=== PATIENT | male | born 1950 | race Caucasian/White ===

== ENCOUNTER → 2020-09-23 09:09 | Outpatient (BNVA) | payer MEDICARE, SELFPAY | PROVIDERS: Family Provider Internal Medicine; PCP Family Medicine; Referring Provider Family Medicine; Visit Provider Internal Medicine | DX: E11.59 Type 2 diabetes mellitus with other circulatory complications (principal); I25.10 Atherosclerotic heart disease of native coronary artery without angina pectoris; E11.65 Type 2 diabetes mellitus with hyperglycemia; E78.5 Hyperlipidemia, unspecified | CPT/HCPCS: 99205 ==

== ENCOUNTER 2021-01-09 01:21 | Emergency (ER) | payer MEDICARE, SELFPAY ==
[2021-01-09 01:26] VITALS: BP 176/89; PULSE 74; RESP 16; TEMP 36.8; O2SAT 99; BMI 26.6
[2021-01-09 01:44] LABS: Add Urine Microscopic? NO; Charge for UA Resulting for Rev
[2021-01-09 01:45] LABS: Bilirubin Urine Neg (Negative); Blood Urine Neg (Negative); Glucose Urine UA 4+ (Normal); Ketones Urine Negative (Negative); Leukocyte Esterase Urine Negative (Negative); Nitrate Urine Negative (Negative); Protein Urine Neg (Negative); Specific Gravity, Urine 1.005 (1.005-1.030); Urine Appearance Clear (CLEAR); Urine Color Yellow (Yellow); Urobilinogen Urine Norm (Negative); pH Urine 5 (5-7)
[2021-01-09] MEDS: tamsulosin 0.4 mg Capsule 0.8 MG PO (02:18)
[2021-01-09] MEDS: sulfamethoxazole-trimeth DS 160-800 mg Tablet 1 TAB PO (02:18)
[2021-01-09 02:19] VITALS: BP 176/89; PULSE 74; RESP 16; O2SAT 99
--- NOTE | 2021-01-09 02:59 | ED_ITS ---
HPI - Male Genitourinary General: Chief complaint: Urogenital-Male Stated complaint: kidney pain Time Seen by Provider: 01/09/21 01:30 History of Present Illness: HPI Narrative: Presents with a 3-month history of difficulty urinating. He said he is having get up once an hour at night to pee. Has had a lot of dribbling and make an miserable form. Patient is a diabetic who takes insulin. His sugars been staying in the 1 50-200 range Onset (ago): month(s) Duration: constant and progressively worsening Associated symptoms: Reports no associated symptoms; Deny nausea or vomiting Review of Systems Const: Denies: fever(s), chills or body aches Eyes: Denies: change in vision or blurry vision ENMT: Denies: throat pain or nasal congestion Card: Denies: chest pain or dyspnea on exertion Resp: Denies: dyspnea, productive cough or non-productive cough GI: Denies: abdominal pain, nausea or vomiting : Reports: urinary frequency, urinary hesitancy, urinary dribbling, difficulty starting urination and nocturia; Denies: difficulty urinating Musc: Denies: extremity pain Skin/Breast: Denies: rash Neuro: Denies: headache(s) Psych: Denies: anxiety or depression Ryan/Lymph: Denies: easy bruising PFSH ED PFSH: Medical History Depression Hypertension Type 2 diabetes mellitus Surgical History H/O inguinal hernia repair History of appendectomy History of intravascular stent placement Family History Mother Cancer breast cancer Diabetes Hypertension Father Hypertension CAD (coronary artery disease) Social History Smoking and tobacco status: never smoked Second hand smoke exposure: Yes Alcohol intake: never Physical Exam Const: COMMON NORMALS: no acute distress, average body habitus and patient oriented x3 HENMT: COMMON NORMALS: normocephalic HEAD & SCALP: normal to inspection and normocephalic FACE & SINUS: normal facial exam Eye: COMMON NORMALS: conjunctivae normal GENERAL EYE: appearance normal, both eyes and all related structures CONJUNCTIVA: Yes conjunctivae normal Neck/C-Spine: COMMON NORMALS: no JVD Chest: COMMONS NORMALS: normal inspection of the chest Resp: COMMON NORMALS: normal respiratory effort and clear to auscultation bilaterally AUSCULTATION: clear to auscultation bilaterally Cardio: COMMON NORMALS: no JVD, regular rate and regular rhythm RATE: regular rate RHYTHM: regular rhythm GI: COMMON NORMALS: Normal to inspection, nondistended, normoactive bowel sounds present RECTAL EXAM: Yes prostate abnormal enlarged, tender and boggy OTHER: Hemoccult negative Extremity: COMMON NORMALS: normal to inspection and full ROM Neuro: COMMON NORMALS: patient oriented x3 Psych: COMMON NORMALS: mental status grossly normal Course Vital Signs: Vital signs: Vital Signs Temperature 98.3 F 01/09/21 01:26 Pulse Rate 74 01/09/21 02:19 Respiratory Rate 16 01/09/21 02:19 Blood Pressure 176/89 01/09/21 02:19 Pulse Oximetry 99 01/09/21 02:19 MDM - Male MDM Narrative: Medical decision making narrative: Patient has a boggy enlarged prostate. It is also tender. Patient was placed on Bactrim and Flomax. Patient is on follow-up with his primary care provider Dr. Cagle in 1 to 2 weeks and get reexamined if he has worsening symptoms he is return here. We also discussed good diabetic diet coverage of his increased sugars and his increased urination at night and has diabetes and his BPH work together Lab Data: Labs: Lab Results 01/09/21 Range/Units 01:42 Urine Color Yellow (Yellow) Urine Appearance Clear (CLEAR) Urine pH 5 (5-7) Ur Specific Gravit y 1.005 (1.005-1.030) Urine Protein Neg (Negative) Urine Glucose (UA) 4+ H (Normal) Urine Ketones Negative (Negative) Urine Blood Neg (Negative) Urine Nitrate Negative (Negative) Urine Bilirubin Neg (Negative) Urine Urobilinogen Norm (Negative) mg/dL Ur Leukocyte Deloris ase Negative (Negative) Discharge Plan Discharge Patient Disposition: Home Clinical Impression: Prostatitis Qualifiers: Prostatitis type: acute Qualified Code(s): N41.0 - Acute prostatitis Benign prostatic hyperplasia Qualifiers: Lower urinary tract symptom presence: symptoms present Lower urinary tract symptom detail: urinary frequency Qualified Code(s): N40.1 - Benign prostatic hyperplasia with lower urinary tract symptoms Condition: Stable Prescriptions: New Flomax 0.4 mg capsule 0.4 mg PO DAILY Qty: 20 RF: 0 Bactrim DS 800-160 mg tablet 1 tab PO BID 30 Days Qty: 60 RF: 0 No Action atorvastatin 20 mg tablet 20 mg PO DAILY RF: 0 duloxetine 30 mg capsule,delayed release(DR/EC) 30 mg PO BID RF: 0 lisinopril 40 mg tablet 60 mg PO DAILY RF: 0 aspirin [Adult Low Dose Aspirin] 81 mg tablet,delayed release (DR/EC) 81 mg PO DAILY RF: 0 metformin 500 mg tablet 500 mg PO BID RF: 0 Jardiance 25 mg tablet 25 mg PO DAILY Qty: 90 RF: 3 Levemir U-100 Insulin 100 unit/mL solution 45 unit SUBCUT .qpm Qty: 42 RF: 3 Discharge Orders: Discharge ED (Routine); Ordered 01/09/21 Ordered By: Mikael Brown Referrals: Grover Servin, [Primary Care Provider] - Discharge Diet: Usual diet Discharge Activity: Resume usual activity Patient Instructions: Prostatitis (ED), Benign Prostatic Hypertrophy (ED) Activity Restrictions/Additional Instructions: Follow-up with medical provider as directed. Take medications as prescribed. Return to the ER or your medical provider if condition worsens. Please read and understand discharge instructions. If any questions ask please. Coding Level of Care Code ED Mill Attendant for Carlos Chance
== END 2021-01-09 02:15 | disposition home or self-care (01) ==
PROVIDERS: Emergency Provider Nurse Practitioner Family; PCP Family Medicine
DX: N41.0 Acute prostatitis (principal); N40.1 Benign prostatic hyperplasia with lower urinary tract symptoms; Z79.82 Long term (current) use of aspirin; Z79.4 Long term (current) use of insulin; I10 Essential (primary) hypertension; E11.9 Type 2 diabetes mellitus without complications; Z77.22 Contact with and (suspected) exposure to environmental tobacco smoke (acute) (chronic)
CPT/HCPCS: 81003; 99283

== ENCOUNTER 2021-04-01 18:18 | Emergency (ER) | payer MEDICARE, SELFPAY ==
[2021-04-01 18:52] VITALS: BP 126/70; PULSE 103; RESP 17; TEMP 36.8; O2SAT 93; BMI 25.8
--- NOTE | 2021-04-01 20:35 | ECG_ITS ---
[facility] ED Test Date: 2021-04-01 Pat Name: Chen Carson Department: Room: Gender: Male Retail Marketing Specialist: : [id number] Requested By: Nicholas Stallworth Order Number: [id number] [id number] MD: Paige Humphreys M.D. 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 [email or web address]
--- NOTE | 2021-04-01 20:35 | XRR_ITS ---
PROCEDURE INFORMATION: Exam: XR Chest Exam date and time: 04/01/2021 8:35 PM Age: 71 years old Clinical indication: Cough and fever; Prior surgery; Surgery date: 6+ months; Surgery type: Stent; Additional info: Cough fever TECHNIQUE: Imaging protocol: XR of the chest. Views: 1 view. COMPARISON: No relevant prior studies available. FINDINGS: Lungs: Mild bibasilar opacities most consistent with pneumonia. Pleural spaces: Unremarkable. No pleural effusion. No pneumothorax. Heart/Mediastinum: Unremarkable. No cardiomegaly. Bones/joints: Mild thoracic spondylosis. XR/XR chest 1V portable [id number] IMPRESSION: Mild bibasilar opacities most consistent with pneumonia.
[2021-04-01 22:06] VITALS: BP 163/80; PULSE 96; RESP 18; O2SAT 93
--- NOTE | 2021-04-01 22:08 | ED_ITS ---
HPI - Weakness General: Chief complaint: Weakness Stated complaint: Tick Bite\Fever\Cough Time Seen by Provider: 04/01/21 20:31 History of Present Illness: HPI Narrative: 71-year-old male comes in today for feeling weak and tired for about 1 week now. Patient had worked out in the sun on of last week and then Saturday started feeling ill. Patient comes in tonight due to increased shortness of breath. Patient has a history of diabetes, hypertension, and hypercholesterol. Patient also has a history of coronary artery disease due to diabetes. Patient did get his COVID-19 vaccine. Review of Systems General: Reports: 10 or more systems reviewed and unremarkable except in HPI and below Resp: Reports: dyspnea PFSH ED PFSH: Medical History Depression Hypertension Type 2 diabetes mellitus Surgical History H/O inguinal hernia repair History of appendectomy History of intravascular stent placement Family History Mother Cancer breast cancer Diabetes Hypertension Father Hypertension CAD (coronary artery disease) Social History Smoking and tobacco status: never smoked Second hand smoke exposure: Yes Alcohol intake: never Physical Exam Const: COMMON NORMALS: no acute distress and patient oriented x3 GENERAL APPEARANCE: cooperative HENMT: COMMON NORMALS: normocephalic and Normal external nose present HEAD & SCALP: normal to inspection and normocephalic NOSE: Normal external nose present MOUTH: Normal oral and palatal mucosa present Eye: GENERAL EYE: appearance normal, both eyes and all related structures Neck/C-Spine: COMMON NORMALS: full ROM Lymph: LYMPHATIC: no lymphadenopathy noted Chest: COMMONS NORMALS: normal inspection of the chest Resp: COMMON NORMALS: normal respiratory effort EFFORT & INSPECTION: Yes able to speak in complete sentences AUSCULTATION: diminished lung sounds Cardio: COMMON NORMALS: regular rate and regular rhythm RATE: regular rate RHYTHM: regular rhythm GI: COMMON NORMALS: non-tender Back/Pelvis: COMMON NORMALS: thoracic and lumbar spine normal to inspection Extremity: COMMON NORMALS: normal to inspection Neuro: COMMON NORMALS: patient oriented x3 and moves all extremities Psych: COMMON NORMALS: mental status grossly normal and cooperative Skin: COMMON NORMALS: no rashes or lesions noted GENERAL SKIN EXAM: no rashes or lesions noted Course Vital Signs: Vital signs: Vital Signs Temperature 98.2 F 04/01/21 18:52 Pulse Rate 83 04/01/21 23:00 Respiratory Rate 16 04/01/21 23:00 Blood Pressure 154/76 04/01/21 23:00 Pulse Oximetry 94 04/01/21 23:00 MDM - Weakness MDM Narrative: Medical decision making narrative: Patient presents with weakness and difficulty breathing for about 7 days. Patient had been vaccinated for COVID-19. Patient reports that last week he had worked outside on and then on Saturday started becoming ill. Patient comes in today due to persistent illness and not improving. On exam patient has some decreased breath sounds. Vital signs were normal except for a slightly elevation in heart rate at 103. Pulse oxygen was 93% on room air. Differential diagnosis includes but not limited to sepsis, pneumonia, COVID-19, dehydration. CBC was unremarkable. CMP noted a sodium of 134 blood glucose of 214. Chest x-ray noted some infiltrates in bilateral lower lungs suggestive of pneumonia. COVID-19 test was negative. CRP was elevated. Believe patient probably has a viral pneumonia may be COVID-19 we will go ahead and send out a PCR COVID-19 test to outside laboratory. I will go ahead and cover patient with doxycycline to cover for secondary bacterial infection. Patient also be maintained on some dexamethasone for the next 5 days. Did recommend patient monitor his blood sugar closely return to the ER for worsening symptoms follow-up with primary care then as needed. Patient reported understanding agreed to plan. Lab Data: Labs: Lab Results 04/01/21 04/01/21 04/01/21 Range/Units 22:09 22:25 22:35 WBC 10.0 (4.0-10.0) 10^3/ uL RBC 5.42 H (4.1-5.3) 10^6/u L Hgb 15.7 (11.7-16.6) g/dL Hct 47.2 (42.0-52.0) % MCV 87.1 (80-94) fL MCH 29.0 (28.0-34.0) pg MCHC 33.3 (30.0-36.0) g/dL RDW 12.3 (12.1-15.1) % Plt Count 290 (130-400) 10^3/c mm MPV 9.7 (7.4-10.4) fL Neut % (Auto) 72.9 % Lymph % (Auto) 20.1 % [place] % (Auto) 6.2 % Eos % (Auto) 0.0 % Baso % (Auto) 0.1 % Neut # (Auto) 7.27 (1.8-7.7) 10^3/u L Lymph # (Auto) 2.0 (0.8-4.8) 10^3/u L [place] # (Auto) 0.6 (0.2-0.9) 10^3/u L Eos # (Auto) 0.0 (0.0-0.8) 10^3/u L Baso # (Auto) 0.0 (0.0-0.1) 10^3/u L Nucleated RBC % (a uto) 0 % Nucleated RBCs # 0.0 /100WBC D-Dimer (0-0.59) ug/mIFE U Specimen Type Arterial Sample Site Brachial, right ABG pH 7.32 L (7.35-7.45) ABG pCO2 27.0 L (35-45) mmHg ABG pO2 71.3 L (80.0-100.0) mmH g ABG HCO3 13.9 L (22-26) mmol/L ABG Base Excess -10.5 L (-2.0-2.0) mmol/ L Reza Test N/a Hematocrit 45.7 (42-52) % O2 Delivery Device Room air Overhead Cleaner ID Hinja Sodium (136-145) mmol/L Potassium (3.5-5.1) mmol/L Chloride (98-107) mmol/L Carbon Dioxide (22-29) mmol/L Anion Gap (5-19) BUN (8-23) mg/dL Creatinine (0.7-1.2) mg/dL GFR Calculation Glucose (65-115) mg/dL Calculated Osmolal ity (285-295) mOsm/k g Lactic Acid (0.5-2.2) mmol/L Calcium (8.5-10.5) mg/dL Total Bilirubin (0.15-1.2) mg/dL AST (0-40) U/L ALT (0-41) U/L Alkaline Phosphata se (40-130) IU/L C-Reactive Protein (0.0-4.9) mg/L NT-Pro-B Natriuret Pep (0-125) pg/mL Total Protein (6.6-8.7) g/dL Albumin (3.5-5.2) g/dL Globulin (1.3-4.6) g/dL Procalcitonin (0-0.5) ng/mL SARS-CoV-2 Ag (Rap id) Negative (Negative) 04/01/21 04/01/21 04/01/21 Range/Units 22:35 22:35 22:35 WBC (4.0-10.0) 10^3/ uL RBC (4.1-5.3) 10^6/u L Hgb (11.7-16.6) g/dL Hct (42.0-52.0) % MCV (80-94) fL MCH (28.0-34.0) pg MCHC (30.0-36.0) g/dL RDW (12.1-15.1) % Plt Count (130-400) 10^3/c mm MPV (7.4-10.4) fL Neut % (Auto) % Lymph % (Auto) % [place] % (Auto) % Eos % (Auto) % Baso % (Auto) % Neut # (Auto) (1.8-7.7) 10^3/u L Lymph # (Auto) (0.8-4.8) 10^3/u L [place] # (Auto) (0.2-0.9) 10^3/u L Eos # (Auto) (0.0-0.8) 10^3/u L Baso # (Auto) (0.0-0.1) 10^3/u L Nucleated RBC % (a uto) % Nucleated RBCs # /100WBC D-Dimer 0.84 H (0-0.59) ug/mIFE U Specimen Type Sample Site ABG pH (7.35-7.45) ABG pCO2 (35-45) mmHg ABG pO2 (80.0-100.0) mmH g ABG HCO3 (22-26) mmol/L ABG Base Excess (-2.0-2.0) mmol/ L Reza Test Hematocrit (42-52) % O2 Delivery Device Overhead Cleaner ID Sodium 134 L (136-145) mmol/L Potassium 4.5 (3.5-5.1) mmol/L Chloride 93 L (98-107) mmol/L Carbon Dioxide 14 L (22-29) mmol/L Anion Gap 31.5 H (5-19) BUN 31 H (8-23) mg/dL Creatinine 1.1 (0.7-1.2) mg/dL GFR Calculation Not Reportable Glucose 214 H (65-115) mg/dL Calculated Osmolal ity 291 (285-295) mOsm/k g Lactic Acid 1.3 (0.5-2.2) mmol/L Calcium 9.2 (8.5-10.5) mg/dL Total Bilirubin 0.3 (0.15-1.2) mg/dL AST 23 (0-40) U/L ALT 20 (0-41) U/L Alkaline Phosphata se 122 (40-130) IU/L C-Reactive Protein 126.7 H (0.0-4.9) mg/L NT-Pro-B Natriuret Pep 409 H (0-125) pg/mL Total Protein 7.7 (6.6-8.7) g/dL Albumin 4.3 (3.5-5.2) g/dL Globulin 3.4 (1.3-4.6) g/dL Procalcitonin 0.39 (0-0.5) ng/mL SARS-CoV-2 Ag (Rap id) (Negative) EKG Data^: EKG 1: Attestation: I personally reviewed and interpreted this EKG as follows: (2224, EKG shows a sinus rhythm with a regular rate at [address] elevation or ectopy is noted. EKG interprets a septal myocardial infarct probably old. No prior exam is available for comparison.) Discharge Plan Discharge Patient Disposition: Home Clinical Impression: Pneumonia Qualifiers: Pneumonia type: due to unspecified organism Laterality: bilateral Lung location: lower lobe of lung Qualified Code(s): J18.9 - Pneumonia, unspecified organism Condition: Stable Prescriptions: New doxycycline monohydrate 100 mg capsule 100 mg PO BID 10 Days Qty: 20 RF: 0 dexamethasone 6 mg tablet 6 mg PO DAILY Qty: 7 RF: 0 albuterol sulfate 90 mcg/actuation HFA aerosol inhaler 2 inh inhalation Q4H PRN (Reason: shortness of breath or wheezing) Qty: 8.5 RF: 0 No Action atorvastatin 20 mg tablet 20 mg PO DAILY RF: 0 duloxetine 30 mg capsule,delayed release(DR/EC) 30 mg PO BID RF: 0 lisinopril 40 mg tablet 60 mg PO DAILY RF: 0 aspirin [Adult Low Dose Aspirin] 81 mg tablet,delayed release (DR/EC) 81 mg PO DAILY RF: 0 metformin 500 mg tablet 500 mg PO BID RF: 0 Jardiance 25 mg tablet 25 mg PO DAILY Qty: 90 RF: 3 Levemir U-100 Insulin 100 unit/mL solution 45 unit SUBCUT .qpm Qty: 42 RF: 3 Flomax 0.4 mg capsule 0.4 mg PO DAILY Qty: 20 RF: 0 Discharge Orders: Discharge ED (Routine); Ordered 04/02/21 Ordered By: Marck Huddleston Discharge Diet: Usual diet Discharge Activity: Increase activity as tolerated Patient Instructions: Pneumonia (ED), Opioid Safety Activity Restrictions/Additional Instructions: Your exam showed that you had pneumonia. We have prescribed doxycycline antibiotic twice a day to cover for any bacterial infection. We have also written for dexamethasone daily for the next 5 days to help with your breathing. Dexamethasone may increase your blood sugar. Your blood sugar should return to normal after stopping it. We have also written for albuterol inhaler you will use this 2 inhalations every 4 hours as needed for cough and wheezing but use it at least 4 times a day to help open up your airways and move the congestion out of your chest. Make sure you eat a healthy diet and drink plenty of fluids. Follow-up with primary care in 1 week. We have also did a send out COVID-19 test to verify that your Covid test was negative that we had done in the ER. Return to the emergency room for worsening symptoms increasing shortness of breath and high fever. If you develop the symptoms you may need to have admission to the hospital or other therapy and treatment. Coding Level of Care Code ED Aluminum Fabrication Supervisor for Carlos Chance Exam Comprehensive
[2021-04-01 22:31] LABS: ABG PH Result 7.32 (7.35-7.45); Arterial Blood Gas Hematocrit 45.7 % (42-52); Base Excess ABG -10.5 mmol/L (-2.0-2.0); Blood Gas Sample Site Brachial, right; Blood Gas Sample Type Arterial; HCO3 ABG 13.9 mmol/L (22-26); Oxygen Device ROOM AIR; PO2 ABG 71.3 mmHg (80.0-100.0)
[2021-04-01] MEDS: sodium chloride 0.9% 500 ML 999 ML IV (22:49)
[2021-04-01 22:59] LABS: Basophils % 0.1 %; Hematocrit 47.2 % (42.0-52.0); Hemoglobin 15.7 g/dL (11.7-16.6); Lymphocytes % 20.1 %; Mean Corpuscular HGB Conc 33.3 g/dL (30.0-36.0); Mean Corpuscular Volume 87.1 fL (80-94); Mean Platelet Volume 9.7 fL (7.4-10.4); Monocytes # 0.6 10^3/uL (0.2-0.9); Monocytes % 6.2 %; Neutrophils # 7.27 10^3/uL (1.8-7.7); Neutrophils % 72.9 %; Nucleated Red Blood Cells % 0 %; Platelet Count 290 10^3/cmm (130-400); Red Blood Count 5.42 10^6/uL (4.1-5.3); Red Cell Distribution Width 12.3 % (12.1-15.1)
[2021-04-01 23:00] VITALS: BP 154/76; PULSE 83; RESP 16; O2SAT 94
[2021-04-01 23:01] LABS: SARS Covid-2 Antigen Negative (Negative)
[2021-04-01 23:05] LABS: Lactic Sepsis W/Reflex 1.3 mmol/L (0.5-2.2)
[2021-04-01 23:07] LABS: D Dimer 0.84 ug/mIFEU (0-0.59)
[2021-04-01 23:16] LABS: NT Pro B Type Natriuretic Pept 409 pg/mL (0-125); Procalcitonin 0.39 ng/mL (0-0.5)
[2021-04-01 23:27] LABS: Alanine Aminotransferase 20 U/L (0-41); Albumin Level 4.3 g/dL (3.5-5.2); Alkaline Phosphatase 122 IU/L (40-130); Anion Gap 31.5 (5-19); Aspartate Amino Transferase 23 U/L (0-40); Blood Urea Nitrogen 31 mg/dL (8-23); C Reactive Protein 126.7 mg/L (0.0-4.9); Calcium 9.2 mg/dL (8.5-10.5); Carbon Dioxide 14 mmol/L (22-29); Chloride 93 mmol/L (98-107); Globulin 3.4 g/dL (1.3-4.6); Glucose 214 mg/dL (65-115); Osmolality Calculated 291 mOsm/kg (285-295); Potassium 4.5 mmol/L (3.5-5.1); Sodium 134 mmol/L (136-145); Total Bilirubin 0.3 mg/dL (0.15-1.2); Total Protein 7.7 g/dL (6.6-8.7)
--- NOTE | 2021-04-02 00:08 | PC.NURSE ---
jessica Morales RN
[2021-04-02 01:45] VITALS: BP 149/99; PULSE 84; RESP 18; O2SAT 97
[2021-04-02 02:15] VITALS: PULSE 100; RESP 16; O2SAT 95
[2021-04-02] MEDS: albuterol 8 gm MDI 2 PUFF INHALATION (02:15)
[2021-04-03 10:58] LABS: Lyme AB Screen <0.90 index
[2021-04-03 15:25] LABS: Coronavirus Test Green County Detected
[2021-04-06 17:08] LABS: E. Chaffeensis AB IGM <1:20; Interpretation PAST INFECTION
[2021-04-07 16:35] LABS: RMSF IGG DETECTED; RMSF IGM NOT DETECTED
== END 2021-04-02 01:35 | disposition home or self-care (01) ==
PROVIDERS: Emergency Medicine; Emergency Provider Nurse Practitioner Family
DX: J18.9 Pneumonia, unspecified organism (principal); Z79.82 Long term (current) use of aspirin; Z79.4 Long term (current) use of insulin; I10 Essential (primary) hypertension; E11.9 Type 2 diabetes mellitus without complications; Z77.22 Contact with and (suspected) exposure to environmental tobacco smoke (acute) (chronic); U07.1 COVID-19
CPT/HCPCS: 36600; 71045; 80053; 82803; 83605; 83880; 84145; 85025; 85378; 86140; 86618; 86666; 86757; 87040; 87426; 87635; 93005; 94640; 99284; J3535; J7040

== ENCOUNTER 2021-04-05 09:20 | Outpatient (CLI) | payer MEDICARE, SELFPAY ==
[2021-04-05 11:35] VITALS: BP 147/72; BP 163/78; PULSE 81; RESP 20; RESP 21; TEMP 36.6; TEMP 37.2; O2SAT 93
== END 2021-04-05 14:10 | disposition home or self-care (01) ==
PROVIDERS: PCP Family Medicine; Visit Provider Clinical Nurse Specialist Adult Health
DX: U07.1 COVID-19 (principal)
CPT/HCPCS: 96365

== ENCOUNTER 2021-04-06 06:10 | Emergency (ER) | payer MEDICARE, SELFPAY ==
[2021-04-06 06:19] VITALS: BP 147/87; PULSE 85; RESP 23; TEMP 36.8; O2SAT 95; BMI 25.4
--- NOTE | 2021-04-06 06:21 | W.ED.COVID ---
HPI - COVID General: Chief Complaint: COVID symptoms Stated Complaint: cough, sob, covid + Time Seen by Provider: 04/06/21 06:18 History of Present Illness: HPI Narrative: 71-year-old male presents emergency room with complaints of shortness of breath. He was seen on April 01 with complaints of weakness fatigue generalized ill feeling for 1 week prior. He had thought it was due to being out in the sun excessively. He previously been vaccinated for Covid. At the time he was seen on the the rapid antigen was negative the PCR was sent out and did come back positive. He was started on dexamethasone they also added doxycycline to cover for secondary pneumonia is because of question of infiltrate on the chest x-ray. Main complaint at this time is he feels weak. complaint: known COVID positive Prior covid testing: yes, results known Prior testing date: 04/01/21 COVID 19 common symptoms: positive cough, non-productive cough, dyspnea, fatigue and body aches; negative fever(s), chills, throat pain, nasal congestion, nausea, vomiting or diarrhea COVID 19 other sytmptoms: negative chest pain, requiring oxygen or respiratory distress Severity: mild Pertinent comorbid conditions: diabetes, hypertension and heart disease Treatment prior to arrival: acetaminophen, ibuprofen, antibiotics and steroids COVID Results: SARS-CoV-2 Antigen (Rapid) Negative (Negative) 04/01/21 22:09 04/01/21 Nasal/Oral Coronavirus 2019 PCR Detected H 04/02/21 01:30 04/02/21 Review of Systems Const: Reports: body aches and fatigue; Denies: fever(s) or chills ENMT: Denies: throat pain, ear or mastoid pain, nasal discharge or nasal congestion Card: Denies: chest pain, edema, dyspnea on exertion or orthopnea Resp: Reports: dyspnea and non-productive cough GI: Denies: abdominal pain, nausea, vomiting, hematemesis, coffee ground emesis, diarrhea, constipation, bloating, hematochezia or melena : Denies: flank pain, dysuria, urinary frequency or urinary urgency Skin/Breast: Denies: rash or pruritus PFSH ED PFSH: Medical History Depression Hypertension Type 2 diabetes mellitus Surgical History H/O inguinal hernia repair History of appendectomy History of intravascular stent placement Family History Mother Cancer breast cancer Diabetes Hypertension Father Hypertension CAD (coronary artery disease) Social History Smoking and tobacco status: never smoked Second hand smoke exposure: Yes Alcohol intake: never Physical Exam Const: COMMON NORMALS: no acute distress GENERAL APPEARANCE: cooperative and comfortable ORIENTATION/CONSCIOUSNESS: Yes awake, Yes oriented to person, Yes oriented to place and Yes oriented to time HENMT: COMMON NORMALS: normocephalic, atraumatic and hearing grossly normal bilaterally HEAD & SCALP: normocephalic and atraumatic Neck/C-Spine: COMMON NORMALS: no JVD Resp: COMMON NORMALS: normal respiratory effort, No retractions, No use of accessory muscles and clear to auscultation bilaterally AUSCULTATION: clear to auscultation bilaterally Cardio: COMMON NORMALS: no JVD, regular rate, regular rhythm and No murmurs present (Cardio) RATE: regular rate RHYTHM: regular rhythm GI: COMMON NORMALS: Soft to palpation and No hepatosplenomegaly present AUSCULTATION: Yes normoactive bowel sounds PALPATION: Yes Soft to palpation, No Tenderness to palpation present (GI), No Guarding due to palpation present (GI) and Yes No hepatosplenomegaly present Extremity: COMMON NORMALS: normal to inspection, capillary refill normal, no clubbing, cyanosis or edema, no calf tenderness and no pedal edema Neuro: SENSORIUM/ORIENTATION: Yes oriented to person, Yes oriented to place and Yes oriented to time Skin: COMMON NORMALS: no rashes or lesions noted GENERAL SKIN EXAM: no rashes or lesions noted Course Vital Signs: Vital signs: Vital Signs Temperature 98.2 F 04/06/21 06:19 Pulse Rate 78 04/06/21 09:29 Respiratory Rate 18 04/06/21 09:29 Blood Pressure 123/78 04/06/21 09:29 Pulse Oximetry 95 04/06/21 09:29 MDM - COVID MDM Narrative: Medical decision making narrative: Patient has generalized symptoms of COVID-19 is known positive. No significant hypoxia all other evaluation is normal he does have some mild hyponatremia. He is typically mildly hyponatremic although is little worse today but he does not have any further symptoms of it. We will have him increase his fluids return if has further problems. Lab Data: Labs: Lab Results 04/06/21 04/06/21 Range/Units 06:49 06:49 WBC 14.7 H (4.0-10.0) 10^3/ uL RBC 5.16 (4.1-5.3) 10^6/u L Hgb 15.0 (11.7-16.6) g/dL Hct 42.4 (42.0-52.0) % MCV 82.2 (80-94) fL MCH 29.1 (28.0-34.0) pg MCHC 35.4 (30.0-36.0) g/dL RDW 11.7 L (12.1-15.1) % Plt Count 340 (130-400) 10^3/c mm MPV 9.4 (7.4-10.4) fL Neut % (Auto) 83.2 % Lymph % (Auto) 6.5 % [place] % (Auto) 8.2 % Eos % (Auto) 0.0 % Baso % (Auto) 0.1 % Neut # (Auto) 12.25 H (1.8-7.7) 10^3/u L Lymph # (Auto) 1.0 (0.8-4.8) 10^3/u L [place] # (Auto) 1.2 H (0.2-0.9) 10^3/u L Eos # (Auto) 0.0 (0.0-0.8) 10^3/u L Baso # (Auto) 0.0 (0.0-0.1) 10^3/u L Nucleated RBC % (a uto) 0 % Nucleated RBCs # 0.0 /100WBC Sodium 128 L (136-145) mmol/L Potassium 4.7 (3.5-5.1) mmol/L Chloride 92 L (98-107) mmol/L Carbon Dioxide 20 L (22-29) mmol/L Anion Gap 20.7 H (5-19) BUN 43 H (8-23) mg/dL Creatinine 0.9 (0.7-1.2) mg/dL GFR Calculation Not Reportable Glucose 176 H (65-115) mg/dL Calculated Osmolal ity 281 L (285-295) mOsm/k g Calcium 8.8 (8.5-10.5) mg/dL COVID Results: SARS-CoV-2 Antigen (Rapid) Negative (Negative) 04/01/21 22:09 04/01/21 Nasal/Oral Coronavirus 2019 PCR Detected H 04/02/21 01:30 04/02/21 Discharge Plan Discharge Patient Disposition: Home Clinical Impression: COVID-19 Condition: Stable Prescriptions: New levofloxacin 500 mg tablet 500 mg PO DAILY 7 Days RF: 0 Discontinued doxycycline monohydrate 100 mg capsule 100 mg PO BID 10 Days Qty: 20 RF: 0 No Action atorvastatin 20 mg tablet 20 mg PO DAILY RF: 0 duloxetine 30 mg capsule,delayed release(DR/EC) 30 mg PO BID RF: 0 lisinopril 40 mg tablet 60 mg PO DAILY RF: 0 aspirin [Adult Low Dose Aspirin] 81 mg tablet,delayed release (DR/EC) 81 mg PO DAILY RF: 0 metformin 500 mg tablet 500 mg PO BID RF: 0 Jardiance 25 mg tablet 25 mg PO DAILY Qty: 90 RF: 3 Levemir U-100 Insulin 100 unit/mL solution 45 unit SUBCUT .qpm Qty: 42 RF: 3 Flomax 0.4 mg capsule 0.4 mg PO DAILY Qty: 20 RF: 0 dexamethasone 6 mg tablet 6 mg PO DAILY Qty: 7 RF: 0 albuterol sulfate 90 mcg/actuation HFA aerosol inhaler 2 inh inhalation Q4H PRN (Reason: shortness of breath or wheezing) Qty: 8.5 RF: 0 Discharge Orders: Discharge ED (Routine); Ordered 04/06/21 Ordered By: Jonah Harris Referrals: Grover Servin DO [Primary Care Provider] - Discharge Diet: Usual diet Discharge Activity: Increase activity as tolerated Patient Instructions: Opioid Safety Coding Level of Care Code ED Contact Lens Inspector for Carlos Fwd Exam Comprehensive
[2021-04-06 06:23] VITALS: O2SAT 95
--- NOTE | 2021-04-06 06:31 | XR_ITS ---
WS: [email or web address] PORTABLE CHEST HISTORY: dyspnea/cough COMPARISON: 04/01/2021 Mild elevation of the RIGHT hemidiaphragm. Similar to the prior studies. Increasing opacification at the LEFT lung base. No pleural effusion or pneumothorax. Cardiac size: Normal. Mediastinum/Aorta: Normal mediastinum. No osseous abnormality seen. XR/XR chest 1V portable [id number] IMPRESSION: Subsegmental area of pneumonitis at the LEFT lung base is new.
[2021-04-06 06:49] VITALS: BP 127/75; PULSE 77; RESP 22; O2SAT 95
[2021-04-06 06:55] LABS: Basophils % 0.1 %; Hematocrit 42.4 % (42.0-52.0); Lymphocytes % 6.5 %; Mean Corpuscular HGB Conc 35.4 g/dL (30.0-36.0); Mean Corpuscular Hemoglobin 29.1 pg (28.0-34.0); Mean Corpuscular Volume 82.2 fL (80-94); Mean Platelet Volume 9.4 fL (7.4-10.4); Monocytes # 1.2 10^3/uL (0.2-0.9); Monocytes % 8.2 %; Neutrophils # 12.25 10^3/uL (1.8-7.7); Neutrophils % 83.2 %; Nucleated Red Blood Cells % 0 %; Platelet Count 340 10^3/cmm (130-400); Red Blood Count 5.16 10^6/uL (4.1-5.3); Red Cell Distribution Width 11.7 % (12.1-15.1); White Blood Count 14.7 10^3/uL (4.0-10.0)
[2021-04-06 07:19] LABS: Anion Gap 20.7 (5-19); Blood Urea Nitrogen 43 mg/dL (8-23); Calcium 8.8 mg/dL (8.5-10.5); Carbon Dioxide 20 mmol/L (22-29); Chloride 92 mmol/L (98-107); Glucose 176 mg/dL (65-115); Osmolality Calculated 281 mOsm/kg (285-295); Potassium 4.7 mmol/L (3.5-5.1); Sodium 128 mmol/L (136-145)
[2021-04-06] MEDS: sodium chloride 0.9% 1,000 ML 999 ML IV (07:41)
[2021-04-06 09:23] VITALS: BP 123/78; PULSE 78; RESP 18; O2SAT 95
[2021-04-06 09:29] VITALS: BP 123/78; PULSE 78; RESP 18; O2SAT 95
== END 2021-04-06 09:30 | disposition home or self-care (01) ==
PROVIDERS: Emergency Provider Family Medicine; PCP Family Medicine
DX: U07.1 COVID-19 (principal); Z79.82 Long term (current) use of aspirin; Z79.4 Long term (current) use of insulin; I10 Essential (primary) hypertension; E11.9 Type 2 diabetes mellitus without complications; Z77.22 Contact with and (suspected) exposure to environmental tobacco smoke (acute) (chronic)
CPT/HCPCS: 71045; 80048; 85025; 96360; 99283; J7030

== ENCOUNTER → 2021-07-03 09:55 | Outpatient (BNVA) | payer MEDICARE, SELFPAY | PROVIDERS: PCP Family Medicine; Visit Provider Internal Medicine | DX: E11.65 Type 2 diabetes mellitus with hyperglycemia (principal); E11.59 Type 2 diabetes mellitus with other circulatory complications; I25.10 Atherosclerotic heart disease of native coronary artery without angina pectoris; E78.5 Hyperlipidemia, unspecified; E87.1 Hypo-osmolality and hyponatremia; Z79.4 Long term (current) use of insulin; I10 Essential (primary) hypertension | CPT/HCPCS: 99214 ==

== ENCOUNTER → 2021-10-17 11:08 | Outpatient (BNVA) | payer MEDICARE, SELFPAY | PROVIDERS: PCP Family Medicine; Visit Provider Internal Medicine | DX: E78.5 Hyperlipidemia, unspecified (principal); E11.65 Type 2 diabetes mellitus with hyperglycemia; E11.59 Type 2 diabetes mellitus with other circulatory complications; I25.10 Atherosclerotic heart disease of native coronary artery without angina pectoris; Z79.84 Long term (current) use of oral hypoglycemic drugs; Z79.4 Long term (current) use of insulin | CPT/HCPCS: 99214 ==

== ENCOUNTER 2021-10-17 12:13 | Outpatient (CLI) | payer MEDICARE, SELFPAY ==
[2021-10-17 13:29] LABS: Estmated Average Glucose 246; Hemoglobin A1C 10.2 % (4.0-6.0)
[2021-10-17 13:41] LABS: Alanine Aminotransferase 23 U/L (0-41); Albumin Level 4.8 g/dL (3.5-5.2); Alkaline Phosphatase 128 IU/L (40-130); Anion Gap 18.5 (5-19); Aspartate Amino Transferase 15 U/L (0-40); Blood Urea Nitrogen 22 mg/dL (8-23); Calcium 9.1 mg/dL (8.5-10.5); Carbon Dioxide 23 mmol/L (22-29); Chloride 99 mmol/L (98-107); Chol HDL Ratio 5.56 mg/dL (1.0-5.00); Cholesterol 200 mg/dL (0-200); Globulin 2.4 g/dL (1.3-4.6); Glucose 293 mg/dL (65-115); HDL Cholesterol 36 mg/dL (60-100); LDL Cholesterol Calculated 112 mg/dL (50-129); LDL HDL Ratio 3.11 RATIO (0.00-3.22); Osmolality Calculated 296 mOsm/kg (285-295); Potassium 4.5 mmol/L (3.5-5.1); Sodium 136 mmol/L (136-145); Total Bilirubin 0.4 mg/dL (0.15-1.2); Total Protein 7.2 g/dL (6.6-8.7); Triglycerides 260 mg/dL (0-150)
== END 2021-10-17 12:14 | disposition home or self-care (01) ==
PROVIDERS: PCP Family Medicine; Visit Provider Internal Medicine
DX: E11.59 Type 2 diabetes mellitus with other circulatory complications (principal); E11.65 Type 2 diabetes mellitus with hyperglycemia; E78.5 Hyperlipidemia, unspecified; I25.10 Atherosclerotic heart disease of native coronary artery without angina pectoris
CPT/HCPCS: 36415; 80053; 80061; 83036

== ENCOUNTER → 2022-01-08 13:53 | Outpatient (BNVA) | payer MEDICARE, SELFPAY | PROVIDERS: PCP Family Medicine; Visit Provider Internal Medicine | DX: E11.59 Type 2 diabetes mellitus with other circulatory complications (principal); E78.5 Hyperlipidemia, unspecified; I25.10 Atherosclerotic heart disease of native coronary artery without angina pectoris | CPT/HCPCS: 83036 ==

== ENCOUNTER → 2022-01-15 11:14 | Outpatient (BNVA) | payer MEDICARE, SELFPAY | PROVIDERS: PCP Family Medicine; Visit Provider Internal Medicine | DX: E11.65 Type 2 diabetes mellitus with hyperglycemia (principal); E11.59 Type 2 diabetes mellitus with other circulatory complications; E78.5 Hyperlipidemia, unspecified; I25.10 Atherosclerotic heart disease of native coronary artery without angina pectoris; Z79.84 Long term (current) use of oral hypoglycemic drugs; Z79.4 Long term (current) use of insulin | CPT/HCPCS: 99214 ==

== ENCOUNTER → 2022-04-16 10:59 | Outpatient (BNVA) | payer MEDICARE, SELFPAY | PROVIDERS: PCP Family Medicine; Visit Provider Internal Medicine | DX: Z79.4 Long term (current) use of insulin (principal); Z79.84 Long term (current) use of oral hypoglycemic drugs; E11.65 Type 2 diabetes mellitus with hyperglycemia; E11.59 Type 2 diabetes mellitus with other circulatory complications; E78.5 Hyperlipidemia, unspecified; I25.10 Atherosclerotic heart disease of native coronary artery without angina pectoris | CPT/HCPCS: 99214 ==

== ENCOUNTER 2022-06-18 15:45 | Observation (INO) | payer MEDICARE, SELFPAY ==
[2022-06-18] VITALS (18 sets, daily range): BP systolic 149–192; BP diastolic 78–121; PULSE 78–147; RESP 14–27; TEMP 36.2–36.5; O2SAT 92–98; BMI 27.3
--- NOTE | 2022-06-18 15:55 | W.ED.NEUROSD ---
HPI - Neuro Symptoms/Deficit General: Chief Complaint: Head Injury Stated Complaint: Possible stroke Time Seen by Provider: 06/18/22 15:55 Limitations: no limitations History of Present Illness: Mr. Carson is a 72-year-old gentleman with significant past medical history of CAD, diabetes, hyperlipidemia presenting to the emergency department due to altered mental status and confusion. He was last definitively known well at approximately 1315. Apparently he was out doing chores and cutting wood and was subsequently confused. He was found to be crawling around on the ground and seemed very confused with a contusion to his head. On initial exam here patient does not recall specific events however is alert and oriented x3 with NIHSS of 0. Denies other recent changes in health. Denies similar episodes in the past. Patient has A. fib with RVR with no known history of arrhythmia. No other specific changes in health, exacerbating, or alleviating factors identified. Onset (ago): hour(s) Time: 13:15 Timing confirmed by: family member History of same: No Severity: severe Relieving factors: time Review of Systems General: Reports: 10 or more systems reviewed and unremarkable except in HPI and below PFSH ED PFSH: Medical History Depression Hypertension Type 2 diabetes mellitus Surgical History H/O inguinal hernia repair History of appendectomy History of intravascular stent placement Family History Mother Cancer breast cancer Diabetes Hypertension Father Hypertension CAD (coronary artery disease) Social History Smoking and tobacco status: never smoked Second hand smoke exposure: Yes Alcohol intake: never NIH stroke score NIHSS: Level Of Consciousness - 1a: 0 Level Of Consciousness Questions - 1b: Both Correct Level Of Consciousness Commands - 1c: Both Correct Best Gaze - 2: Normal Visual Ordonez - 3: No Visual Loss Facial Palsy - 4: Normal Motor Arm Right - 5: No Drift Motor Arm Left - 5: No Drift Motor Leg Right - 6: No Drift Motor Leg Left - 6: No Drift Limb Ataxia - 7: Absent Sensory - 8: Normal Best Language - 9: No Aphasia Dysarthia - 10: Normal Extinction And Inattention - 11: 0 Score: Total Score: 0 Physical Exam Const: COMMON NORMALS: patient oriented x3 and alert GENERAL APPEARANCE: cooperative and well developed HENMT: COMMON NORMALS: normocephalic HEAD & SCALP: normocephalic THROAT: posterior oropharynx normal OTHER: No trejo signs or raccoon eyes. No hemotympanum. No otorrhea or rhinorrhea. Jaw alignment normal. Dentition baseline. No obvious bony step-offs. No septal hematoma. No evidence of ocular entrapment. Eye: COMMON NORMALS: conjunctivae normal CONJUNCTIVA: Yes conjunctivae normal SCLERA: sclerae normal Neck/C-Spine: COMMON NORMALS: supple GENERAL: Yes trachea midline Resp: COMMON NORMALS: normal respiratory effort EFFORT & INSPECTION: Yes able to speak in complete sentences Cardio: COMMON NORMALS: regular rate and regular rhythm RATE: regular rate RHYTHM: regular rhythm GI: COMMON NORMALS: Soft to palpation PALPATION: Yes Soft to palpation and No Tenderness to palpation present (GI) Extremity: GENERAL: Yes normal exam except as noted and No edema Neuro: COMMON NORMALS: patient oriented x3, CN's II-XII intact bilaterally, moves all extremities, no focal motor deficits and no sensory deficits noted SENSORIUM/ORIENTATION: Yes alert and No Orientation impaired Psych: COMMON NORMALS: mental status grossly normal and Normal thought process present THOUGHT PROCESS: Normal thought process present Course Vital Signs: Vital signs: Vital Signs Temperature 98.3 F 06/19/22 12:07 Pulse Rate 73 06/19/22 12:07 Respiratory Rate 16 06/19/22 12:07 Blood Pressure 153/70 06/19/22 12:07 Pulse Oximetry 93 06/19/22 12:07 Oxygen Delivery Me thod 06/19/22 11:23 MDM - Neuro Symptoms/Deficit Medical Decision Making 72-year-old gentleman presenting with episode of severe debility/altered mental status concerning for strokelike episode. Upon initial arrival NIHSS 0 GCS 15 without focality of neurologic exam.. EKG shows atrial fibrillation with rapid ventricular sponsor which appears new for this patient. Laboratory studies with leukocytosis of uncertain etiology, hemoglobin normal. Metabolic panel without acute derangement explain symptoms, hyperglycemia is noted. Delta troponin is positive. No UTI. No viral infection or toxic ingestions as tested. Chest x-ray with no lobar consolidation or pneumothorax. CT head without intracranial hemorrhage or mass, no acute traumatic injury identified on CT cervical spine. CTA chest negative for acute intracranial hemorrhage or mass. There is posterior circulation abnormalities identified on CTA of the head which may explain this episode. Fluids and magnesium given during ED treatment which led to conversion to sinus rhythm with interventricular conduction delay on EKG. No STEMI. Most likely etiology of patient's symptoms is uncertain, possibly cardiac related versus cerebrovascular. The results of ED evaluation were discussed with the patient including plan for admission due to requirement for level of care not available if discharged to prevent significant worsening/deterioration. Patient agreeable with plan. Medical Records I reviewed the patient's medical records. Lab Data I reviewed the patient's lab results. : 06/19/22 04:37 06/19/22 04:[address] 06/18/22 15:56 IMPRESSION: 1. No acute abnormality of the brain. 2. Mild atrophy of the brain parenchyma. 3. Mild chronic white matter microangiopathic change. 4. Incidental/nonacute findings are listed in the report. Cervical Spine CT 06/18/22 16:02 IMPRESSION: 1. No acute fracture of the cervical spine. 2. Mild degenerative changes in the visualized spine. 3. Incidental/nonacute findings are listed in the report. Chest X-Ray 06/18/22 16:02 IMPRESSION: No acute findings. Chest CTA 06/18/22 16:49 IMPRESSION: 1. No evidence for pulmonary embolus. 2. Mild mosaic attenuation is most likely a combination of atelectasis and air trapping. Head/Neck CTA 06/18/22 16:49 IMPRESSION: 1. Atherosclerotic disease, most pronounced in the right and left posterior cerebral arteries. Greater than 90% focal stenosis in the right posterior cerebral artery and 85-90% focal stenosis in the left posterior cerebral artery. 20% stenosis in the left vertebral artery. No occlusion, thrombosis, extravasation, dissection, or aneurysm. 2. The posterior communicating arteries are not visualized. The posterior communicating arteries may be congenitally absent, or may be too small for the resolution capabilities of this study. 3. Incidental/nonacute findings are listed in the report. IMPRESSION: 1. Atherosclerotic disease. 20% stenosis in the right common carotid artery and right and left external carotid arteries. 50% stenosis in the right vertebral artery. No occlusion, thrombosis, extravasation, dissection, or aneurysm. 2. Incidental/nonacute findings are listed in the report. REFERENCES: NASCET CRITERIA. The degree of stenosis in the cervical segment of the internal carotid artery is based on NASCET criteria. Normal is no stenosis. Mild is less than 50% stenosis. Moderate is 50-69% stenosis. Severe is 70% to 99% stenosis. Total occlusion is no detectable patent lumen. ADDENDUM: 06/18/221800 Urgent results were discussed with Yobani Solomon on 06/18/2022 at 5:56 PM CDT. Head MRI 06/19/22 07:00 IMPRESSION: 1. No acute infarct or hemorrhage. 2. Mild atrophy and mild small vessel ischemic disease. Laboratory Results WBC 27.7 10^3/uL (4.0-10.0) H 06/18/22 16:02 RBC 5.33 10^6/uL (4.1-5.3) H 06/18/22 16:02 Hgb 16.2 g/dL (11.7-16.6) 06/18/22 16:02 Hct 45.9 % (42.0-52.0) 06/18/22 16:02 MCV 86.1 fl (80-94) 06/18/22 16:02 MCH 30.4 pg (28.0-34.0) 06/18/22 16:02 MCHC 35.3 g/dL (30.0-36.0) 06/18/22 16:02 RDW 12.3 % (12.1-15.1) 06/18/22 16:02 Plt Count 323 10^3/cmm (130-400) 06/18/22 16:02 MPV 10.8 fL (7.4-10.4) H 06/18/22 16:02 Neut % (Auto) 82.8 % 06/18/22 16:02 Lymph % (Auto) 10.2 % 06/18/22 16:02 Borden % (Auto) 4.9 % 06/18/22 16:02 Eos % (Auto) 0.6 % 06/18/22 16:02 Baso % (Auto) 0.3 % 06/18/22 16:02 Neut # (Auto) 22.95 10^3/uL (1.8-7.7) H 06/18/22 16:02 Lymph # (Auto) 2.8 10^3/uL (0.8-4.8) 06/18/22 16:02 Borden # (Auto) 1.4 10^3/uL (0.2-0.9) H 06/18/22 16:02 Eos # (Auto) 0.2 10^3/uL (0.0-0.8) 06/18/22 16:02 Baso # (Auto) 0.1 10^3/uL (0.0-0.1) 06/18/22 16:02 Nucleated RBC % (auto) 0 % 06/18/22 16:02 Nucleated RBCs # 0.0 /100WBC 06/18/22 16:02 Sodium 137 mmol/L (136-145) 06/18/22 16:02 Potassium 3.8 mmol/L (3.5-5.1) 06/18/22 16:02 Chloride 95 mmol/L (98-107) L 06/18/22 16:02 Carbon Dioxide 23 mmol/L (22-29) 06/18/22 16:02 Anion Gap 22.8 (5-19) H 06/18/22 16:02 BUN 15 mg/dL (8-23) 06/18/22 16:02 Creatinine 0.7 mg/dL (0.7-1.2) 06/18/22 16:02 GFR Calculation Not Reportable 06/18/22 16:02 Glucose 316 mg/dL (65-115) H 06/18/22 16:02 POC Glucose 356 mg/dL (70-110) H 06/18/22 15:56 Estimat Average Glucose 212 06/18/22 16:02 Hemoglobin A1c 9.0 % (4.0-6.0) H 06/18/22 16:02 Calculated Osmolality 297 mOsm/kg (285-295) H 06/18/22 16:02 Calcium 9.7 mg/dL (8.5-10.5) 06/18/22 16:02 Magnesium 1.6 mg/dL (1.7-2.3) L 06/18/22 16:02 Total Bilirubin 0.6 mg/dL (0.15-1.2) 06/18/22 16:02 AST 23 U/L (0-40) 06/18/22 16:02 ALT 34 U/L (0-41) 06/18/22 16:02 Alkaline Phosphatase 141 U/L (40-130) H 06/18/22 16:02 Troponin T Baseline 33 ng/L (0-15) H 06/18/22 16:02 Troponin T 120 Minute 39.04 ng/L (0-15) H 06/18/22 17:44 Delta Troponin T 6.04 ABS# (0-10) 06/18/22 17:44 C-Reactive Protein 3.0 mg/L (0.0-4.9) 06/18/22 16:02 NT-Pro-B Natriuret Pep 1214 pg/mL (0-125) H 06/18/22 16:02 Total Protein 7.6 g/dL (6.6-8.7) 06/18/22 16:02 Albumin 5.0 g/dL (3.5-5.2) 06/18/22 16:02 Globulin 2.6 g/dL (1.3-4.6) 06/18/22 16:02 Procalcitonin 0.06 ng/mL (0-0.5) 06/18/22 16:02 Procalcitonin 0.06 ng/mL (0-0.5) 06/18/22 16:02 TSH 3.56 uIU/mL (0.27-4.20) 06/18/22 16:02 Urine Color Straw (Yellow) 06/18/22 16:50 Urine Appearance Clear (CLEAR) 06/18/22 16:50 Urine pH 6 (5-7) 06/18/22 16:50 Ur Specific [place] 1.010 (1.005-1.030) 06/18/22 16:50 Urine Protein 1+ (Negative) H 06/18/22 16:50 Urine Glucose (UA) 4+ (Normal) H 06/18/22 16:50 Urine Ketones 1+ (Negative) H 06/18/22 16:50 Urine Blood Neg (Negative) 06/18/22 16:50 Urine Nitrate Negative (Negative) 06/18/22 16:50 Urine Bilirubin Neg (Negative) 06/18/22 16:50 Urine Urobilinogen Norm mg/dL (Negative) 06/18/22 16:50 Ur Leukocyte Esterase Negative (Negative) 06/18/22 16:50 Urine RBC None /hpf (0-2) 06/18/22 16:50 Urine WBC 0-4 /hpf (0-5) H 06/18/22 16:50 Ur Squamous Epith Cells None /hpf (0-5) 06/18/22 16:50 Amorphous Sediment Not Reportable 06/18/22 16:50 Urine Bacteria Trace /hpf (NONE) 06/18/22 16:50 Salicylates < 0.3 mg/dL (3-10) L 06/18/22 16:02 Acetaminophen < 5.0 ug/mL (10-30) L 06/18/22 16:02 Ethyl Alcohol < 10 mg/dL (0-10) 06/18/22 16:02 Coronavirus 229E (PCR) Not detected (NOT DETECT) 06/18/22 17:55 SARS-CoV-2 (PCR) Not detected (NOT DETECT) 06/18/22 17:55 Critical Care Time Critical Care Time: Critical Care Time: Yes Total Critical Care Time: 35 Attestation: Due to a high probability of clinically significant, possibly life threatening deterioration, the patient required my highest level of attention and preparedness to intervene emergently and I personally spent this critical care time directly and personally managing the patient. This critical care time included obtaining a history; examining the patient; pulse oximetry; ordering and review of laboratory and imaging studies; arranging urgent treatment with development of a management plan; evaluation of patient's response to treatment; frequent reassessment; and, discussions with other providers as applicable. It was exclusive of separately billable procedures. Primary system involved is cardiac and cerebrovascular. Discharge Plan Discharge Patient Disposition: Admitted As Inpatient Admit Provider: Annie Limon Clinical Impression: Syncope, Acute alteration in mental status, Atrial fibrillation, Intracranial arteriosclerosis, Leukocytosis Condition: Stable Coding Level of Care Code ED Casing Splitter for Carlos Chance
--- NOTE | 2022-06-18 15:56 | CTR_ITS ---
PROCEDURE INFORMATION: Exam: CT Head Without Contrast Exam date and time: 06/18/2022 4:09 PM Age: 72 years old Clinical indication: Injury or trauma; Fall; Blunt trauma (contusions or hematomas); Without loss of consciousness; Additional info: Stroke like symptoms TECHNIQUE: Imaging protocol: Computed tomography of the head without contrast. Sagittal and coronal reformatted images were created and reviewed. Radiation optimization: All CT scans at this facility use at least one of these dose optimization techniques: automated exposure control; mA and/or kV adjustment per patient size (includes targeted exams where dose is matched to clinical indication); or iterative reconstruction. COMPARISON: No relevant prior studies available. RADIATION DOSE METRICS: Total DLP (mGy-cm): 1149.28 FINDINGS: Brain: No acute intracranial hemorrhage. No acute infarct. No intra-axial or extra-axial masses. Phillips-white matter differentiation is preserved. No cerebral edema. No extra-axial fluid collections. No midline shift. Mild atrophy of the brain parenchyma. Mildly decreased attenuation in the deep white matter, consistent with mild chronic microangiopathic change. No evidence for Chiari 1 malformation. Cerebral ventricles: No hydrocephalus. Paranasal sinuses: Visualized paranasal sinuses are clear. Mastoid air cells: Mastoid air cells are clear bilaterally. Orbital cavities: Globes and lenses, extraocular muscles, and optic nerves are intact bilaterally. No acute intraorbital abnormality. Nasal cavity: Mild left nasal septal deviation. Ashleigh bullosa of the right middle turbinate. Bones/joints: No acute fracture. Soft tissues: No acute abnormality of the extracranial soft tissues. Vasculature: Mild atherosclerotic changes in the visualized arteries. CT/CT head wo con* [id number] IMPRESSION: 1. No acute abnormality of the brain. 2. Mild atrophy of the brain parenchyma. 3. Mild chronic white matter microangiopathic change. 4. Incidental/nonacute findings are listed in the report.
--- NOTE | 2022-06-18 16:02 | CTR_ITS ---
PROCEDURE INFORMATION: Exam: CT Cervical Spine Without Contrast Exam date and time: 06/18/2022 4:12 PM Age: 72 years old Clinical indication: Injury or trauma; Fall; Blunt trauma; Additional info: AMS TECHNIQUE: Imaging protocol: Computed tomography of the cervical spine without contrast. Sagittal and coronal reformatted images were created and reviewed. Radiation optimization: All CT scans at this facility use at least one of these dose optimization techniques: automated exposure control; mA and/or kV adjustment per patient size (includes targeted exams where dose is matched to clinical indication); or iterative reconstruction. COMPARISON: No relevant prior studies available. RADIATION DOSE METRICS: Total DLP (mGy-cm): 194.97 FINDINGS: Bones/joints: Vertebral body height is maintained. No subluxation. Bones are diffusely osteopenic. Mild degenerative changes in the visualized spine. No acute fracture. Lungs: Right lung apex is clear. Vasculature: Mild atherosclerotic changes in the visualized arteries. Soft tissues: No paravertebral soft tissue abnormality. No radiopaque foreign body. CT/CT cervical spin wo con* [id number] IMPRESSION: 1. No acute fracture of the cervical spine. 2. Mild degenerative changes in the visualized spine. 3. Incidental/nonacute findings are listed in the report.
--- NOTE | 2022-06-18 16:02 | ECG_ITS ---
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 Measurements Intervals [place] Rate: 141 P: IN: QRS: -13 QRSD: 124 T: 91 QT: 324 QTc: 496 Interpretive Statements ATRIAL FIBRILLATION WITH RAPID VENTRICULAR RESPONSE MODERATE INTRAVENTRICULAR CONDUCTION DELAY [110+ ms QRS DURATION] NONSPECIFIC ST & T-WAVE ABNORMALITY Compared to ECG 04/01/2021 22:17:56 Intraventricular conduction delay now present T-wave abnormality now present Sinus rhythm no longer present Short IN interval no longer present Myocardial infarct finding no longer present Electronically Signed On 06-18-2022 17:16:35 CDT by Juan Carlos Adame M.D. [email or web address]
--- NOTE | 2022-06-18 16:02 | XRR_ITS ---
PROCEDURE INFORMATION: Exam: XR Chest Exam date and time: 06/18/2022 4:26 PM Age: 72 years old Clinical indication: Other: AMS TECHNIQUE: Imaging protocol: Radiologic exam of the chest. Views: 1 view. COMPARISON: CR XR chest 1V portable [id number] 04/06/2021 6:50 AM FINDINGS: Lungs: Unremarkable. No consolidation. Pleural spaces: Unremarkable. No pleural effusion. No pneumothorax. Heart/Mediastinum: Unremarkable. No cardiomegaly. Diaphragm: Mild chronic elevation of the right diaphragm. Bones/joints: Unremarkable. XR/XR chest 1V portable [id number] IMPRESSION: No acute findings.
[2022-06-18 16:08] LABS: Glucose Point of Care 356 mg/dL (70-110)
[2022-06-18 16:46] LABS: Basophils # 0.1 10^3/uL (0.0-0.1); Eosinophils # 0.2 10^3/uL (0.0-0.8); Mean Corpuscular HGB Conc 35.3 g/dL (30.0-36.0); Nucleated Red Blood Cells % 0 %; Red Cell Distribution Width 12.3 % (12.1-15.1)
--- NOTE | 2022-06-18 16:49 | CTR_ITS ---
PROCEDURE INFORMATION: Exam: CTA Head With Contrast, Arteriography Exam date and time: 06/18/2022 5:05 PM Age: 72 years old Clinical indication: Drowsiness or somnolence; Additional info: AMS, confusion TECHNIQUE: Imaging protocol: Computed tomographic angiography of the head with contrast. Exam focused on the arteries. Sagittal and coronal reformatted images were created and reviewed. 3D rendering (Not supervised by radiologist): MIP and/or 3D reconstructed images were created by the technologist. Radiation optimization: All CT scans at this facility use at least one of these dose optimization techniques: automated exposure control; mA and/or kV adjustment per patient size (includes targeted exams where dose is matched to clinical indication); or iterative reconstruction. Contrast material: OMNIPAQUE 350; Contrast volume: 95 ml; Contrast route: INTRAVENOUS (IV); COMPARISON: CT head wo con* [id number] 06/18/2022 4:09 PM RADIATION DOSE METRICS: Total DLP (mGy-cm): 407.92 FINDINGS: ANTERIOR CIRCULATION: Right internal carotid artery: Mild calcified plaque at the cavernous segment. No occlusion, thrombosis, stenosis, extravasation, dissection, or aneurysm. Right middle cerebral artery: Unremarkable. No occlusion, thrombosis, stenosis, extravasation, dissection, or aneurysm. Right anterior cerebral artery: Unremarkable. No occlusion, thrombosis, stenosis, extravasation, dissection, or aneurysm. Anterior communicating artery: The anterior communicating artery is unremarkable. Left internal carotid artery: Mild calcified plaque at the cavernous and supraclinoid segment. No occlusion, thrombosis, stenosis, extravasation, dissection, or aneurysm. Left middle cerebral artery: Unremarkable. No occlusion, thrombosis, stenosis, extravasation, dissection, or aneurysm. Left anterior cerebral artery: Unremarkable. No occlusion, thrombosis, stenosis, extravasation, dissection, or aneurysm. POSTERIOR CIRCULATION: Right vertebral artery: Unremarkable. No occlusion, thrombosis, stenosis, extravasation, dissection, or aneurysm. Left vertebral artery: Dominant left vertebral artery. Mild to moderate calcified and noncalcified plaque with 20% stenosis (series 4, images 175-178). No occlusion, thrombosis, extravasation, dissection, or aneurysm. Basilar artery: Unremarkable. No occlusion, thrombosis, stenosis, extravasation, dissection, or aneurysm. Right posterior cerebral artery: Focal extensive noncalcified plaque with greater than 90% stenosis in the proximal right posterior cerebral artery (series 6, images 78-86).. No occlusion, thrombosis, extravasation, dissection, or aneurysm. Left posterior cerebral artery: Focal extensive noncalcified plaque with 85-90% stenosis (series 6, images 92-100). No occlusion, thrombosis, extravasation, dissection, or aneurysm. Right posterior communicating artery: The right posterior communicating artery is not visualized. The right posterior communicating artery may be congenitally absent, or may be too small for the resolution capabilities of this study. Left posterior communicating artery: The left posterior communicating artery is not visualized. The left posterior communicating artery may be congenitally absent, or may be too small for the resolution capabilities of this study. Cavernous Sinus: Small focus of air in the cavernous sinus, likely from a previous injection. Veins: The dural sinuses and deep cerebral veins are patent. Brain: No definite mass, mass effect, or midline shift. Cerebral ventricles: No hydrocephalus. Orbital cavities: Globes and lenses, extraocular muscles, and optic nerves are intact bilaterally. No acute intraorbital abnormality. Mastoid air cells: Mastoid air cells are clear bilaterally. Paranasal sinuses: Paranasal sinuses are clear. Nasal cavity: Ashleigh bullosa of the right middle turbinate. Mild left nasal septal deviation. Bones/joints: No acute fracture. Soft tissues: Soft tissues: No acute abnormality of the extracranial soft tissues. PROCEDURE INFORMATION: Exam: CTA Neck With Contrast Exam date and time: 06/18/2022 5:05 PM Age: 72 years old Clinical indication: Drowsiness or somnolence; Additional info: AMS, confusion TECHNIQUE: Imaging protocol: Computed tomographic angiography of the neck with contrast. 3D rendering (Not supervised by radiologist): MIP and/or 3D reconstructed images were created by the technologist. Radiation optimization: All CT scans at this facility use at least one of these dose optimization techniques: automated exposure control; mA and/or kV adjustment per patient size (includes targeted exams where dose is matched to clinical indication); or iterative reconstruction. Contrast material: OMNIPAQUE 350; Contrast volume: 95 ml; Contrast route: INTRAVENOUS (IV); COMPARISON: CT cervical spin wo con* [id number] 06/18/2022 4:12 PM RADIATION DOSE METRICS: Total DLP (mGy-cm): 407.92 FINDINGS: Right common carotid artery: Moderate calcified plaque at the carotid bulb with up to 20% stenosis (series 4, images 93-99). No occlusion, thrombosis, extravasation, dissection, or aneurysm. Right internal carotid artery: Cervical segment is unremarkable. No occlusion, thrombosis, stenosis, extravasation, dissection, or aneurysm. Right external carotid artery: Moderate calcified and noncalcified plaque at the origin with 20% stenosis (series 4, images 97-110). No occlusion, thrombosis, stenosis, extravasation, dissection, or aneurysm. Left common carotid artery: Minimal calcified plaque. No occlusion, thrombosis, stenosis, extravasation, dissection, or aneurysm. Left internal carotid artery: Cervical segment is unremarkable. No occlusion, thrombosis, stenosis, extravasation, dissection, or aneurysm. Left external carotid artery: Moderate calcified and noncalcified plaque at the origin and proximal left ECA with 20% stenosis (series 4, images 110-123). No occlusion, thrombosis, extravasation, dissection, or aneurysm. Right vertebral artery: Moderate calcified and noncalcified plaque at the origin with 50% stenosis (series 4, images 45-49). No occlusion, thrombosis, extravasation, dissection, or aneurysm. Left vertebral artery: Dominant left vertebral artery. Cervical segment is unremarkable. No occlusion, thrombosis, stenosis, extravasation, dissection, or aneurysm. Brachiocephalic artery: Unremarkable. No occlusion, thrombosis, stenosis, extravasation, dissection, or aneurysm. Subclavian arteries: Mild calcified plaque at the origin of the right subclavian artery. Mild calcified plaque in the proximal left subclavian artery. No occlusion, thrombosis, stenosis, extravasation, dissection, or aneurysm. Aorta: Visualized aortic arch is unremarkable. No occlusion, thrombosis, stenosis, extravasation, dissection, or aneurysm. Lymph nodes: No lymphadenopathy. Soft tissues: No soft tissue swelling. No radiopaque foreign body. Bones/joints: Multilevel degenerative changes of varying severity in the visualized spine. Lungs: Dependent atelectasis in the lungs bilaterally. CT/CT angio headneck* [id number] IMPRESSION: 1. Atherosclerotic disease, most pronounced in the right and left posterior cerebral arteries. Greater than 90% focal stenosis in the right posterior cerebral artery and 85-90% focal stenosis in the left posterior cerebral artery. 20% stenosis in the left vertebral artery. No occlusion, thrombosis, extravasation, dissection, or aneurysm. 2. The posterior communicating arteries are not visualized. The posterior communicating arteries may be congenitally absent, or may be too small for the resolution capabilities of this study. 3. Incidental/nonacute findings are listed in the report. IMPRESSION: 1. Atherosclerotic disease. 20% stenosis in the right common carotid artery and right and left external carotid arteries. 50% stenosis in the right vertebral artery. No occlusion, thrombosis, extravasation, dissection, or aneurysm. 2. Incidental/nonacute findings are listed in the report. REFERENCES: NASCET CRITERIA. The degree of stenosis in the cervical segment of the internal carotid artery is based on NASCET criteria. Normal is no stenosis. Mild is less than 50% stenosis. Moderate is 50-69% stenosis. Severe is 70% to 99% stenosis. Total occlusion is no detectable patent lumen.
--- NOTE | 2022-06-18 16:49 | CTR_ITS ---
PROCEDURE INFORMATION: Exam: CTA Chest With Contrast Exam date and time: 06/18/2022 4:59 PM Age: 72 years old Clinical indication: Condition or disease; Other: New onset a fib; Additional info: Syncope, AMS, new afib TECHNIQUE: Imaging protocol: Computed tomographic angiography of the chest with contrast. 3D rendering (Not supervised by radiologist): MIP and/or 3D reconstructed images were created by the technologist. Radiation optimization: All CT scans at this facility use at least one of these dose optimization techniques: automated exposure control; mA and/or kV adjustment per patient size (includes targeted exams where dose is matched to clinical indication); or iterative reconstruction. Contrast material: OMNIPAQUE 350; Contrast volume: 95 ml; Contrast route: INTRAVENOUS (IV); COMPARISON: CR XR chest 1V portable [id number] 06/18/2022 4:26 PM RADIATION DOSE METRICS: Total DLP (mGy-cm): 411.28 FINDINGS: Pulmonary arteries: Normal. No pulmonary emboli. Aorta: Unremarkable. No aortic aneurysm. No aortic dissection. Lungs: Mild symmetric dependent ground-glass opacities in both lungs, most likely atelectasis and mosaic attenuation. No consolidation. Pleural spaces: Unremarkable. No pneumothorax. No pleural effusion. Heart: Coronary artery calcifications. The heart size is normal. Lymph nodes: Calcified mediastinal and hilar lymph nodes. Bones/joints: Degenerative changes of the lower thoracic spine. No fracture. Soft tissues: Unremarkable. CT/CT angio chest PE protcl [id number] IMPRESSION: 1. No evidence for pulmonary embolus. 2. Mild mosaic attenuation is most likely a combination of atelectasis and air trapping.
[2022-06-18] MEDS: sodium chloride 0.9% 1,000 ML 999 ML IV (16:50)
[2022-06-18 16:54] LABS: Troponin(5th) Baseline 33 ng/L (0-15)
[2022-06-18 17:04] LABS: Procalcitonin 0.06 ng/mL (0-0.5); Thyroid Stimulating Hormone 3.56 uIU/mL (0.27-4.20)
[2022-06-18 17:15] LABS: Alanine Aminotransferase 34 U/L (0-41); Alkaline Phosphatase 141 U/L (40-130); Anion Gap 22.8 (5-19); Aspartate Amino Transferase 23 U/L (0-40); Blood Urea Nitrogen 15 mg/dL (8-23); Calcium 9.7 mg/dL (8.5-10.5); Carbon Dioxide 23 mmol/L (22-29); Chloride 95 mmol/L (98-107); Globulin 2.6 g/dL (1.3-4.6); Glucose 316 mg/dL (65-115); Magnesium 1.6 mg/dL (1.7-2.3); Osmolality Calculated 297 mOsm/kg (285-295); Potassium 3.8 mmol/L (3.5-5.1); Sodium 137 mmol/L (136-145); Total Bilirubin 0.6 mg/dL (0.15-1.2); Total Protein 7.6 g/dL (6.6-8.7)
[2022-06-18 17:16] LABS: Acetaminophen < 5.0 ug/mL (10-30); Alcohol Level < 10 mg/dL (0-10); Salicylate < 0.3 mg/dL (3-10)
[2022-06-18] MEDS: iohexol 350 mg/mL 100 mL Btl IV ×2 (17:23→17:27)
[2022-06-18 17:30] LABS: NT Pro B Type Natriuretic Pept 1214 pg/mL (0-125)
[2022-06-18] MEDS: magnesium sulfate premix 2 GM/50 ML PIGGYBACK IV (18:03)
[2022-06-18 18:14] LABS: Add Urine Microscopic? YES; Bilirubin Urine Neg (Negative); Blood Urine Neg (Negative); Glucose Urine UA 4+ (Normal); Ketones Urine 1+ (Negative); Leukocyte Esterase Urine Negative (Negative); Nitrate Urine Negative (Negative); Protein Urine 1+ (Negative); Urine Appearance Clear (CLEAR); Urine Color Straw (Yellow); Urobilinogen Urine Norm (Negative); pH Urine 6 (5-7)
[2022-06-18 18:15] LABS: Add Urine Culture? No; Bacteria Urine TRACE /hpf; WBC Urine 0-4 /hpf (0-5)
[2022-06-18 18:42] LABS: Troponin 5 2HR 39.04 ng/L (0-15)
[2022-06-18 18:43] LABS: Troponin 5 2HR Delta 6.04 ABS# (0-10)
--- NOTE | 2022-06-18 18:56 | PM.HP ---
Providers/Chief Complaint Primary Care Provider: Grover Servin DO Chief Complaint: Possible stroke History of Present Illness Chen Carson is a 72 year old male who presented to the hospital after he was found in the [place]. Patient was crawling in the [place] and found to be confused by family members. His last well-known time was around 1:15 PM, in the ER he was diagnosed with A. fib RVR which spontaneously converted to sinus rhythm. NIH was 0 however stroke application packaging consultant recommended brain imaging and cardiac work-up. Patient is stating that he is very active for his age He was cutting wood yesterday around 1 PM when he is not sure what happened, He went back to his truck to take a sip of coffee and then around 1 15pmPM he decided to cut some more wood, he did not return until 2:30 PM when his checked on him. At that point he was on the ground crawling climbing to go towards his truck he was awake and alert he recognized his he did not experience any weakness however he described his fall to generalized weakness. He is not sure whether he had syncopal event or seizure. He has history of coronary disease with a stent, Review of Systems Const: Denies: fever(s) Eyes: Denies: change in vision ENMT: Denies: throat pain Card: Denies: chest pain Resp: Denies: dyspnea GI: Denies: abdominal pain : Denies: flank pain Musc: Denies: neck pain Skin/Breast: Denies: rash Neuro: Denies: headache(s) Psych: Denies: anxiety Endo: Denies: polyuria Ryan/Lymph: Denies: easy bruising All/Imm: Denies: urticaria Medications/Allergies Home Medications Medication Instructions Recorded Confirmed Last Taken Type aspirin 81 mg tablet,delayed 81 mg PO DAILY 09/23/20 06/18/22 Unknown History release (Adult Low Dose Aspirin) duloxetine 30 mg capsule,delayed 30 mg PO BID 09/23/20 06/18/22 06/18/22 History release metformin 500 mg tablet 500 mg PO BID 09/23/20 06/18/22 06/18/22 History albuterol sulfate 90 mcg/actuation 2 inh inhalation Q4H PRN shortness 04/02/21 06/18/22 Unknown Rx aerosol inhaler of breath or wheezing #8.5 grams losartan 100 mg tablet 100 mg PO DAILY 04/10/21 06/18/22 06/18/22 History blood sugar diagnostic (ReliOn #400 ea 11/14/21 06/18/22 Unknown Rx Prime Test Strips) glipizide 5 mg tablet 2.5 mg PO TID #140 tabs 11/14/21 06/18/22 06/18/22 Rx atorvastatin 40 mg tablet 40 mg PO DAILY #90 tabs 11/20/21 06/18/22 06/17/22 Rx tamsulosin 0.4 mg capsule (Flomax) 0.4 mg PO DAILY #90 caps 06/05/22 06/18/22 06/18/22 Rx insulin detemir U-100 100 unit/mL 70 unit SUBCUT DAILY 06/18/22 06/18/22 06/18/22 History (3 mL) subcutaneous pen (Levemir FlexTouch U-100 Insulin) naproxen sodium 220 mg capsule 440 mg PO DAILY PRN Pain 06/18/22 06/18/22 06/18/22 History (Aleve) Allergies Allergy/AdvReac Type Severity Reaction Status Date / Time acetaminophen Allergy pt states Verified 01/15/22 11:23 [From [employer] with Codeine] he goes crazy codeine Allergy pt states Verified 01/15/22 11:23 [From [employer] with Codeine] he goes crazy PFSH Acute PFSH: Medical History Depression Hypertension Type 2 diabetes mellitus Surgical History H/O inguinal hernia repair History of appendectomy History of intravascular stent placement Family History Mother Cancer breast cancer Diabetes Hypertension Father Hypertension CAD (coronary artery disease) Social History Smoking and tobacco status: never smoked Second hand smoke exposure: Yes Alcohol intake: never Vitals/I&O/Wt Last Vital Signs Temp 97.2 F L 06/18/22 15:55 Pulse 95 06/18/22 18:00 Resp 20 H 06/18/22 18:00 BP 181/99 06/18/22 18:00 Pulse Ox 98 06/18/22 18:00 O2 Del Method 06/18/22 15:55 Weight last 48 hrs Weight 81.647 kg Physical Exam Narrative: NIH 0 Awake and alert Nonfocal neuro exam Coherent Pleasant during evaluation Currently on room air Sinus rhythm with multiple PVCs Hypertensive Awake and alert Looks slightly dehydrated Family at the bedside Pleasant and cooperative Data : 06/19/22 04:37 06/19/22 04:37 Micro: Microbiology 06/18/22 17:42 Blood Culture - Preliminary Blood SPECIMEN COLLECTED 06/18/22 17:42 Blood Culture - Preliminary Blood SPECIMEN COLLECTED A&P Assessment and plan (1) Syncope: (2) Acute alteration in mental status: (3) Atrial fibrillation: Plan TIA versus syncope MRI in the morning New onset A. fib, spontaneously converted to sinus rhythm, multiple PVCs noted Not in RVR Start Eliquis along metoprolol Will need PT evaluation Full code Permissive hypertension I will put him on doxycycline for possible tick bite related illness. 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
[2022-06-18] MEDS: lactated ringers 1,000 ML 999 ML IV (19:30)
[2022-06-18 19:50] LABS: Adenovirus Not Detected (NOT DETECT); Chlamydia Pneumoniae Not Detected (NOT DETECT); Coronavirus 229E,HKU1,NL63,OC4 Not Detected (NOT DETECT); Human Metapneumovirus Not Detected (NOT DETECT); Human Rhinovirus/Enterovirus Not Detected (NOT DETECT); Influenza A Not Detected (NOT DETECT); Influenza A H1 Not Detected (NOT DETECT); Influenza A H1-2009 Not Detected (NOT DETECT); Influenza A H3 Not Detected (NOT DETECT); Influenza B Not Detected (NOT DETECT); Mycoplasma Pneumoniae Not Detected (NOT DETECT); Parainfluenza Virus Type 1 Not Detected (NOT DETECT); Parainfluenza Virus Type 2 Not Detected (NOT DETECT); Parainfluenza Virus Type 3 Not Detected (NOT DETECT); Parainfluenza Virus Type 4 Not Detected (NOT DETECT); Respiratory Syncytial Virus A Not Detected (NOT DETECT); Respiratory Syncytial Virus B Not Detected (NOT DETECT); SARS-COV-2 Not Detected (NOT DETECT)
[2022-06-18 19:52] LABS: Procalcitonin 0.06 ng/mL (0-0.5)
[2022-06-18 20:12] LABS: Basophils % 0.3 %; Eosinophils % 0.6 %; Hematocrit 45.9 % (42.0-52.0); Hemoglobin 16.2 g/dL (11.7-16.6); Lymphocytes # 2.8 10^3/uL (0.8-4.8); Lymphocytes % 10.2 %; Mean Corpuscular Hemoglobin 30.4 pg (28.0-34.0); Mean Corpuscular Volume 86.1 fl (80-94); Mean Platelet Volume 10.8 fL (7.4-10.4); Monocytes # 1.4 10^3/uL (0.2-0.9); Monocytes % 4.9 %; Neutrophils # 22.95 10^3/uL (1.8-7.7); Neutrophils % 82.8 %; Platelet Count 323 10^3/cmm (130-400); Red Blood Count 5.33 10^6/uL (4.1-5.3); Slide Review Slide Review Perform; White Blood Count 27.7 10^3/uL (4.0-10.0)
--- NOTE | 2022-06-18 22:02 | ECG_ITS ---
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 Measurements Intervals Velma Rate: 91 P: 57 ME: 150 QRS: -5 QRSD: 113 T: 13 QT: 387 QTc: 478 Interpretive Statements SINUS RHYTHM WITH OCCASIONAL VENTRICULAR PREMATURE COMPLEXES MODERATE INTRAVENTRICULAR CONDUCTION DELAY [110+ ms QRS DURATION] Compared to ECG 06/18/2022 16:00:59 Ventricular premature complex(es) now present Atrial fibrillation no longer present T-wave abnormality no longer present Electronically Signed On 06-19-2022 3:48:57 CDT by Juan Carlos Adame M.D. [id number]
--- NOTE | 2022-06-18 22:04 | PC.NURSE ---
Gave report to Андрей Ag
--- NOTE | 2022-06-18 22:37 | USCV_ITS ---
Alli Chen Age: 72 Gender: M : 1950 Exam Date: 06/19/2022 00:12 Ordering Phys: Radha Davis MD Technologist: ALFREDO Exam Location: [facility] [place] Indication: Atrial fibrillation. History of cardiac stenting 2006 BP: 149 / 78 HR: 83 Rhythm: Sinus Technical Quality: Adequate MEASUREMENTS (Male / Female) Normal Values 2D ECHO LV Diastolic Diameter PLAX 5.2 cm 4.2 - 5.9 / 3.9 - 5.3 cm LV Systolic Diameter PLAX 3.8 cm IVS Diastolic Thickness 1.6 cm 0.6 - 1.0 / 0.6 - 0.9 cm IVS Systolic Thickness 2.1 cm LVPW Diastolic Thickness 1.6 cm 0.6 - 1.0 / 0.6 - 0.9 cm LVPW Systolic Thickness 1.7 cm LVOT Diameter 2.3 cm LV Ejection Fraction 2D Teich 53.5 % LV Ejection Fraction MOD 2C 42.8 % LV Ejection Fraction 2C AL 42.3 % LA Diameter 4.1 cm LA Width 3.7 cm LA Height 5.5 cm RA Width 3.6 cm RA Height 4.6 cm Aorta at Sinotubular Diameter 3.1 cm IVC Diameter 1.4 cm M-MODE Aortic Annulus Diameter 3.1 cm LA Ao Ratio MM 1.3 MV E Point Septal Separation 0.6 cm DOPPLER AV Peak Velocity 130.0 cm/s LVOT Peak Velocity 79.0 cm/s AV Area Cont Eq vti 2.9 cm squared AV Area Cont Eq pk 2.5 cm squared MV Peak Velocity 113.0 cm/s MV Area PHT 3.6 cm squared Mitral E to A Ratio 0.8 MV E' Velocity 47.5 cm/s Mitral E to MV E' Ratio 10.0 Mitral E to LV E' Lateral Ratio 7.9 Mitral E to LV E' Septal Ratio 13.6 TR Peak Velocity 228.8 cm/s TR Peak Gradient 20.9 mmHg TV Peak E Velocity 53.0 cm/s Right Atrial Pressure 5.0 mmHg Pulmonary Artery Systolic Pressu 25.9 mmHg PV Peak Velocity 108.0 cm/s RV Acceleration Time 0.1 s RV Ejection Time 0.3 s RV AcT/ET 0.2 FINDINGS Left Ventricle Normal left ventricular size, systolic function and mildly increased wall thickness, with no regional wall motion abnormalities. Left ventricular ejection fraction is estimated at 55 %. No regional wall motion abnormalities. Grade I diastolic dysfunction (abnormal relaxation filling pattern), normal to mildly elevated filling pressures. Right Ventricle Normal right ventricular size and systolic function. Right ventricular systolic pressure 19 mmHg. Right Atrium Normal right atrial size. Left Atrium Mildly increased left atrial size. Mitral Valve Mildly thickened mitral valve. No mitral valve stenosis. Trace mitral valve regurgitation. Aortic Valve Mildly thickened trileaflet aortic valve. No aortic valve stenosis. No aortic valve regurgitation. Tricuspid Valve Structurally normal tricuspid valve. No tricuspid valve stenosis. Trace tricuspid valve regurgitation. Pulmonic Valve Structurally normal pulmonic valve. No pulmonary valve stenosis. Trace pulmonary valve regurgitation. Pericardium No pericardial effusion. Aorta Normal size aortic root and proximal ascending aorta. IVC Normal IVC dimension with >50% respiratory change of the inferior vena cava. CONCLUSIONS Paige Humphreys MD (Electronically Signed) Final Date: 19 June 2022 16:41 S
[2022-06-18 22:45] LABS: Glucose Point of Care 331 mg/dL (70-110)
[2022-06-18 23:11] LABS: Estmated Average Glucose 212
[2022-06-18] MEDS: atorvastatin 40 mg Tablet PO (23:22)
[2022-06-18] MEDS: metoprolol tartrate 25 mg Tablet PO (23:22)
[2022-06-18] MEDS: sodium chloride 0.9% 1,000 ML 75 ML IV (23:22)
[2022-06-18] MEDS: duloxetine 30 mg Capsule PO (23:22)
[2022-06-19] VITALS (7 sets, daily range): BP systolic 153–173; BP diastolic 70–80; PULSE 73–98; RESP 14–17; TEMP 36.6–36.9; O2SAT 92–96
[2022-06-19 00:07] LABS: Troponin 5 6HR 55.48 ng/L (0-15)
[2022-06-19 00:29] LABS: Troponin 5 6HR Delta 22.48 ng/L (0-12)
[2022-06-19 01:40] LABS: Vitamin B12 559 pg/mL (232-1245)
[2022-06-19 05:25] LABS: Basophils % 0.3 %; Eosinophils # 0.1 10^3/uL (0.0-0.8); Eosinophils % 0.9 %; Hematocrit 40.8 % (42.0-52.0); Hemoglobin 13.7 g/dL (11.7-16.6); Lymphocytes # 2.8 10^3/uL (0.8-4.8); Lymphocytes % 19.8 %; Mean Corpuscular HGB Conc 33.6 g/dL (30.0-36.0); Mean Corpuscular Volume 89.3 fl (80-94); Mean Platelet Volume 9.8 fL (7.4-10.4); Monocytes % 6.7 %; Neutrophils # 10.16 10^3/uL (1.8-7.7); Neutrophils % 71.7 %; Nucleated Red Blood Cells % 0 %; Platelet Count 245 10^3/cmm (130-400); Red Blood Count 4.57 10^6/uL (4.1-5.3); Red Cell Distribution Width 12.7 % (12.1-15.1); White Blood Count 14.2 10^3/uL (4.0-10.0)
[2022-06-19 05:48] LABS: Blood Urea Nitrogen 14 mg/dL (8-23); Carbon Dioxide 21 mmol/L (22-29); Chloride 104 mmol/L (98-107); Glucose 263 mg/dL (65-115); Magnesium 2.5 mg/dL (1.7-2.3); Osmolality Calculated 292 mOsm/kg (285-295); Phosphorus 3.4 mg/dL (2.5-4.5); Sodium 136 mmol/L (136-145)
[2022-06-19 05:51] LABS: Anion Gap 15.7 (5-19); Potassium 4.7 mmol/L (3.5-5.1)
[2022-06-19 06:39] LABS: Glucose Point of Care 258 mg/dL (70-110)
--- NOTE | 2022-06-19 07:00 | MR_ITS ---
WS: [id number] MRI BRAIN WITHOUT CONTRAST HISTORY: cva COMPARISON: CT head 06/18/2022 TECHNIQUE: Diffusion imaging, multiplanar T1, T2 and FLAIR imaging obtained. No evidence for acute infarct or hemorrhage. Phillips-white matter differentiation is normal. No remote infarct. Mild small vessel ischemic disease in a periventricular distribution. Very mildly prominent ventricles on the basis of atrophy. No inferior displacement of cerebellar tonsils. The sella turcica and pituitary gland are unremarkabl e. Dural venous sinuses and [place] demonstrate no abnormality on this unenhanced studies. Paranasal sinuses: Clear. Mastoid air cells: Normal. Calvarium and scalp: Intact. MR/MR head wo con* [id number] IMPRESSION: 1. No acute infarct or hemorrhage. 2. Mild atrophy and mild small vessel ischemic disease.
[2022-06-19] MEDS: insulin lispro 100 unit/1 mL SUBCUT ×2 (07:55→11:08)
[2022-06-19] MEDS: metoprolol tartrate 25 mg Tablet PO (08:28)
[2022-06-19] MEDS: tamsulosin 0.4 mg Capsule PO (08:28)
[2022-06-19] MEDS: acetaminophen 500 mg Tablet PO (08:28)
[2022-06-19] MEDS: atorvastatin 40 mg Tablet PO (08:28)
[2022-06-19] MEDS: magnesium oxide 400 mg tablet PO (08:28)
[2022-06-19] MEDS: aspirin 81 mg EC Tablet PO (08:28)
[2022-06-19] MEDS: doxycycline 100 mg Tablet PO (08:28)
[2022-06-19] MEDS: duloxetine 30 mg Capsule PO (08:28)
[2022-06-19] MEDS: apixaban 5 mg Tablet PO (08:29)
[2022-06-19] MEDS: sennosides-docusate Tablet 1 TAB PO (08:29)
--- NOTE | 2022-06-19 10:19 | P.DS_ITS ---
Discharge Providers Date of Admission: 06/18/22 21:16 Date of Discharge: June 19, 2022 Attending Provider at Admission: Annie Limon MD Attending Provider at Discharge: Radha Davis MD Primary Care Provider: Grover Servin DO Diagnoses at Discharge Discharge Diagnosis (1) Syncope: Status: Acute (2) Acute alteration in mental status: Status: Acute (3) Atrial fibrillation: Status: Acute Reason for Visit Reason for Visit: Possible stroke Hospital Course Hospital Course 72-year-old male who has history of chronic kidney disease, poorly controlled diabetes, presents to the hospital after 1 syncopal event, he was cutting wood when he fell on the ground initially attributed his symptoms of generalized weakness but his took him to the ER for further evaluation he was diagnosed with A. fib RVR which spontaneously converted to sinus rhythm without any medications, he was given IV fluids started on Eliquis stroke work-up did show changes related to posterior circulation, at the time of discharge she will get metoprolol 12.5 mg twice daily along Eliquis 5 mg twice daily, [id number] 4, I will discharge him on event monitor NIH 0 No active weakness He is tolerating his diet For poorly controlled diabetes I would ask him to follow-up with PCP he already takes long-acting insulin 70 units daily, I will increase it to 73 units daily I will give him doxycycline in case he has any tick bite associated illness, I have discontinued his metformin as GFR is not reportable, At this point we are not sure whether his syncopal mood was related to tamsulosin orthostasis versus cardiac arrhythmia he will get event monitor for at least 3 weeks Physical Exam Narrative: NIH 0 Sinus rhythm with PVCs Awake and alert Abdomen soft Looks hydrated Family at the bedside Pleasant and cooperative Tolerating his breakfast Awake and alert Abdomen soft Discharge Data Studies Completed and Pending Completed Studies During Hospitalization Category Date Time Status CT cervical spin wo con* [id number] Stat Cat Scan 06/18/22 16:[address] head wo con* [id number] Stat Cat Scan 06/18/22 15:56 Completed CTA PE [CT angio chest PE protcl [id number]] Stat Cat Scan 06/18/22 16:49 Completed CTA head neck [CT angio headneck* [id number]] Stat Cat Scan 06/18/22 16:49 Completed XR chest 1V portable [id number] Stat Exams 06/18/22 16:02 Completed Pending at discharge Category Date Time Status Blood Culture Stat Lab 06/18/22 17:42 Results MR head wo con* [id number] Stat MRI 06/19/22 07:00 Taken CV. echo complete* [id number] Routine Ultrasound 06/18/22 22:37 Taken Radiology Impressions Head CT 06/18/22 15:56 IMPRESSION: 1. No acute abnormality of the brain. 2. Mild atrophy of the brain parenchyma. 3. Mild chronic white matter microangiopathic change. 4. Incidental/nonacute findings are listed in the report. Cervical Spine CT 06/18/22 16:02 IMPRESSION: 1. No acute fracture of the cervical spine. 2. Mild degenerative changes in the visualized spine. 3. Incidental/nonacute findings are listed in the report. Chest X-Ray 06/18/22 16:02 IMPRESSION: No acute findings. Chest CTA 06/18/22 16:49 IMPRESSION: 1. No evidence for pulmonary embolus. 2. Mild mosaic attenuation is most likely a combination of atelectasis and air trapping. Head/Neck CTA 06/18/22 16:49 IMPRESSION: 1. Atherosclerotic disease, most pronounced in the right and left posterior cerebral arteries. Greater than 90% focal stenosis in the right posterior cerebral artery and 85-90% focal stenosis in the left posterior cerebral artery. 20% stenosis in the left vertebral artery. No occlusion, thrombosis, extravasation, dissection, or aneurysm. 2. The posterior communicating arteries are not visualized. The posterior communicating arteries may be congenitally absent, or may be too small for the resolution capabilities of this study. 3. Incidental/nonacute findings are listed in the report. IMPRESSION: 1. Atherosclerotic disease. 20% stenosis in the right common carotid artery and right and left external carotid arteries. 50% stenosis in the right vertebral artery. No occlusion, thrombosis, extravasation, dissection, or aneurysm. 2. Incidental/nonacute findings are listed in the report. REFERENCES: NASCET CRITERIA. The degree of stenosis in the cervical segment of the internal carotid artery is based on NASCET criteria. Normal is no stenosis. Mild is less than 50% stenosis. Moderate is 50-69% stenosis. Severe is 70% to 99% stenosis. Total occlusion is no detectable patent lumen. ADDENDUM: 06/18/22 1801 Urgent results were discussed with Yobani Solomon on 06/18/2022 at 5:56 PM CDT. Laboratory Results WBC 14.2 10^3/uL (4.0-10.0) H 06/19/22 04:37 RBC 4.57 10^6/uL (4.1-5.3) 06/19/22 04:37 Hgb 13.7 g/dL (11.7-16.6) 06/19/22 04:37 Hct 40.8 % (42.0-52.0) L 06/19/22 04:37 MCV 89.3 fl (80-94) 06/19/22 04:37 MCH 30.0 pg (28.0-34.0) 06/19/22 04:37 MCHC 33.6 g/dL (30.0-36.0) 06/19/22 04:37 RDW 12.7 % (12.1-15.1) 06/19/22 04:37 Plt Count 245 10^3/cmm (130-400) 06/19/22 04:37 MPV 9.8 fL (7.4-10.4) 06/19/22 04:37 Neut % (Auto) 71.7 % 06/19/22 04:37 Lymph % (Auto) 19.8 % 06/19/22 04:37 [place] % (Auto) 6.7 % 06/19/22 04:37 Eos % (Auto) 0.9 % 06/19/22 04:37 Baso % (Auto) 0.3 % 06/19/22 04:37 Neut # (Auto) 10.16 10^3/uL (1.8-7.7) H 06/19/22 04:37 Lymph # (Auto) 2.8 10^3/uL (0.8-4.8) 06/19/22 04:37 [place] # (Auto) 1.0 10^3/uL (0.2-0.9) H 06/19/22 04:37 Eos # (Auto) 0.1 10^3/uL (0.0-0.8) 06/19/22 04:37 Baso # (Auto) 0.0 10^3/uL (0.0-0.1) 06/19/22 04:37 Nucleated RBC % (auto) 0 % 06/19/22 04:37 Nucleated RBCs # 0.0 /100WBC 06/19/22 04:37 Sodium 136 mmol/L (136-145) 06/19/22 04:37 Potassium 4.7 mmol/L (3.5-5.1) 06/19/22 04:37 Chloride 104 mmol/L (98-107) 06/19/22 04:37 Carbon Dioxide 21 mmol/L (22-29) L 06/19/22 04:37 Anion Gap 15.7 (5-19) 06/19/22 04:37 BUN 14 mg/dL (8-23) 06/19/22 04:37 Creatinine 0.7 mg/dL (0.7-1.2) 06/19/22 04:37 GFR Calculation Not Reportable 06/19/22 04:37 Glucose 263 mg/dL (65-115) H 06/19/22 04:37 POC Glucose 258 mg/dL (70-110) H 06/19/22 06:27 Estimat Average Glucose 212 06/18/22 16:02 Hemoglobin A1c 9.0 % (4.0-6.0) H 06/18/22 16:02 Calculated Osmolality 292 mOsm/kg (285-295) 06/19/22 04:37 Calcium 9.0 mg/dL (8.5-10.5) 06/19/22 04:37 Phosphorus 3.4 mg/dL (2.5-4.5) 06/19/22 04:37 Magnesium 2.5 mg/dL (1.7-2.3) H 06/19/22 04:37 Total Bilirubin 0.6 mg/dL (0.15-1.2) 06/18/22 16:02 AST 23 U/L (0-40) 06/18/22 16:02 ALT 34 U/L (0-41) 06/18/22 16:02 Alkaline Phosphatase 141 U/L (40-130) H 06/18/22 16:02 Troponin T Baseline 33 ng/L (0-15) H 06/18/22 16:02 Troponin T 120 Minute 39.04 ng/L (0-15) H 06/18/22 17:44 Delta Troponin T 6.04 ABS# (0-10) 06/18/22 17:44 Troponin T Hi Sens 6Hr 55.48 ng/L (0-15) H 06/18/22 23:43 Troponin T Hi Sens 6Hr Delta 22.48 ng/L (0-12) H* 06/18/22 23:43 C-Reactive Protein 3.0 mg/L (0.0-4.9) 06/18/22 16:02 NT-Pro-B Natriuret Pep 1214 pg/mL (0-125) H 06/18/22 16:02 Total Protein 7.6 g/dL (6.6-8.7) 06/18/22 16:02 Albumin 5.0 g/dL (3.5-5.2) 06/18/22 16:02 Globulin 2.6 g/dL (1.3-4.6) 06/18/22 16:02 Vitamin B12 559 pg/mL (232-1245) 06/18/22 23:43 Procalcitonin 0.06 ng/mL (0-0.5) 06/18/22 16:02 Procalcitonin 0.06 ng/mL (0-0.5) 06/18/22 16:02 TSH 2.80 uIU/mL (0.27-4.20) 06/18/22 23:43 Urine Color Straw (Yellow) 06/18/22 16:50 Urine Appearance Clear (CLEAR) 06/18/22 16:50 Urine pH 6 (5-7) 06/18/22 16:50 Ur Specific [place] 1.010 (1.005-1.030) 06/18/22 16:50 Urine Protein 1+ (Negative) H 06/18/22 16:50 Urine Glucose (UA) 4+ (Normal) H 06/18/22 16:50 Urine Ketones 1+ (Negative) H 06/18/22 16:50 Urine Blood Neg (Negative) 06/18/22 16:50 Urine Nitrate Negative (Negative) 06/18/22 16:50 Urine Bilirubin Neg (Negative) 06/18/22 16:50 Urine Urobilinogen Norm mg/dL (Negative) 06/18/22 16:50 Ur Leukocyte Esterase Negative (Negative) 06/18/22 16:50 Urine RBC None /hpf (0-2) 06/18/22 16:50 Urine WBC 0-4 /hpf (0-5) H 06/18/22 16:50 Ur Squamous Epith Cells None /hpf (0-5) 06/18/22 16:50 Amorphous Sediment Not Reportable 06/18/22 16:50 Urine Bacteria Trace /hpf (NONE) 06/18/22 16:50 Salicylates < 0.3 mg/dL (3-10) L 06/18/22 16:02 Acetaminophen < 5.0 ug/mL (10-30) L 06/18/22 16:02 Ethyl Alcohol < 10 mg/dL (0-10) 06/18/22 16:02 Coronavirus 229E (PCR) Not detected (NOT DETECT) 06/18/22 17:55 SARS-CoV-2 (PCR) Not detected (NOT DETECT) 06/18/22 17:55 Vitals Last Vital Signs Temp 97.9 F 06/19/22 08:00 Pulse 77 06/19/22 09:23 Resp 16 06/19/22 09:23 BP 173/80 06/19/22 08:00 Pulse Ox 92 06/19/22 09:23 O2 Del Method 06/19/22 09:23 Discharge Plan Discharge Patient Disposition: Home Condition: Stable Prescriptions: New Eliquis 5 mg Tablet 5 mg PO BID Qty: 60 3RF doxycycline monohydrate 100 mg Tablet 100 mg PO BID Qty: 10 0RF metoprolol tartrate 25 mg Tablet 12.5 mg PO BID@0900,2100 Qty: 60 3RF Continued duloxetine 30 mg capsule,delayed release(DR/EC) 30 mg PO BID aspirin [Adult Low Dose Aspirin] 81 mg tablet,delayed release (DR/EC) 81 mg PO DAILY losartan 100 mg tablet 100 mg PO DAILY glipizide 5 mg tablet 2.5 mg PO TID Qty: 140 3RF (DME) ReliOn Prime Test Strips Strip See Rx Instructions .Route Qty: 400 3RF Rx Instructions: Check BS 4 times a day. Flomax 0.4 mg capsule 0.4 mg PO DAILY Qty: 90 3RF albuterol sulfate 90 mcg/actuation HFA aerosol inhaler 2 inh inhalation Q4H PRN (Reason: shortness of breath or wheezing) Qty: 8.5 0RF atorvastatin 40 mg tablet 40 mg PO DAILY Qty: 90 4RF Rx Instructions: Take one tablet by mouth daily. Changed Levemir FlexTouch U-100 Insuln 100 unit/mL (3 mL) insulin pen 73 unit SUBCUT DAILY Qty: 15 0RF Discontinued metformin 500 mg tablet 500 mg PO BID Aleve 220 mg Capsule 440 mg PO DAILY PRN (Reason: Pain) Discharge Orders: Discharge Order (Routine); Ordered 06/19/22 Ordered By: Radha Davis Other Ambulatory Orders: MCT/Event Monitor 21 Days (Routine) Timeframe: 3 Weeks Facility: [facility] - Location: Radiology Ordered By: Radha Davis Referrals: Grover Servin DO [Primary Care Provider] - 2 weeks Patient Instructions: Opioid Safety Activity Restrictions/Additional Instructions: Following changes have been made Do not take metformin Your hemoglobin A1c is 9 I have increased the dose of long-acting insulin to 73 units daily For syncopal event you have to wear event monitor for 3 weeks For possible irregular heart rhythm which is called atrial fibrillation I am putting you on a blood thinner called Eliquis which you will take 5 mg twice a day to prevent you from having a stroke and to control your premature beats and high heart rate he will get low-dose metoprolol 12.5 mg twice a day This is a report of your blood vessels of head and neck, lots of atherosclerosis related to hypertension and diabetes 1. Atherosclerotic disease, most pronounced in the right and left posterior cerebral arteries. Greater than 90% focal stenosis in the right posterior cerebral artery and 85-90% focal stenosis in the left posterior cerebral artery. 20% stenosis in the left vertebral artery. No occlusion, thrombosis, extravasation, dissection, or aneurysm. 2. The posterior communicating arteries are not visualized. The posterior communicating arteries may be congenitally absent, or may be too small for the resolution capabilities of this study. 3. Incidental/nonacute findings are listed in the report. ? ? IMPRESSION: 1. Atherosclerotic disease. 20% stenosis in the right common carotid artery and right and left external carotid arteries. 50% stenosis in the right vertebral artery. No occlusion, thrombosis, extravasation, dissection, or aneurysm. 2. Incidental/nonacute findings are listed in the report. ? Discharge Attestations Time Spent in Discharge Care*: less than 30 min Quality Metrics Clinical Quality Measures [ No reported AMI, CVA or VTE this stay] Coding Level of Care Code Acute Chg FW DC note Diagnoses Syncope R55 Acute alteration in mental status R41.82 Atrial fibrillation I48.91
--- NOTE | 2022-06-19 10:29 | PC.NURSE ---
would like MRI results called to her instead of patient to verify understanding of results
[2022-06-19 11:22] LABS: Glucose Point of Care 415 mg/dL (70-110)
--- NOTE | 2022-06-19 12:05 | PC.NURSE ---
Patient ambulated with family to main exit. All IV's removed, discharge instructions and new prescriptions sent to preferred pharmacy. All instructions were verbalized to understanding.
== END 2022-06-19 12:06 | disposition home or self-care (01) ==
LOC: ER 18:24 → MEDSURG 21:18
PROVIDERS: Admitting Provider Student in an Organized Health Care Education/Training Program; Emergency Provider Emergency Medicine; PCP Family Medicine; Visit Provider Internal Medicine
DX: R55 Syncope and collapse (principal); R41.82 Altered mental status, unspecified; I48.91 Unspecified atrial fibrillation; I25.10 Atherosclerotic heart disease of native coronary artery without angina pectoris; E11.9 Type 2 diabetes mellitus without complications; E78.5 Hyperlipidemia, unspecified; F32.A Depression, unspecified; I10 Essential (primary) hypertension; R29.700 NIHSS score 0; Z95.5 Presence of coronary angioplasty implant and graft; Z79.4 Long term (current) use of insulin; Z82.49 Family history of ischemic heart disease and other diseases of the circulatory system
CPT/HCPCS: 36415; 36416; 70450; 70496; 70498; 70551; 71045; 71275; 72125; 80048; 80053; 80307; 81001; 82607; 82962; 83036; 83735; 83880; 84100; 84145; 84443; 84484; 85025; 86140; 87040; 87635; 93005; 93306; 96361; 96365; 96372; 96375; 99285; G0378; J1815; J3411; J3475; J7030; Q9967

== ENCOUNTER → 2022-07-09 10:17 | Outpatient (BNVA) | payer MEDICARE, SELFPAY | PROVIDERS: PCP Family Medicine; Visit Provider Family Medicine | DX: E87.1 Hypo-osmolality and hyponatremia (principal); E78.5 Hyperlipidemia, unspecified; E11.65 Type 2 diabetes mellitus with hyperglycemia | CPT/HCPCS: 80053; 80061; 83036 ==

== ENCOUNTER → 2022-09-12 10:50 | Outpatient (BNVA) | payer MEDICARE, SELFPAY | PROVIDERS: PCP Family Medicine; Visit Provider Internal Medicine Cardiovascular Disease | DX: I25.10 Atherosclerotic heart disease of native coronary artery without angina pectoris (principal); I48.91 Unspecified atrial fibrillation; I48.92 Unspecified atrial flutter; Z79.01 Long term (current) use of anticoagulants; E11.65 Type 2 diabetes mellitus with hyperglycemia; Z79.4 Long term (current) use of insulin; R55 Syncope and collapse; I10 Essential (primary) hypertension; E78.5 Hyperlipidemia, unspecified | CPT/HCPCS: 99205 ==

== ENCOUNTER 2022-10-16 07:20 | Outpatient (CLI) | payer MEDICARE, SELFPAY ==
[2022-10-16 07:54] VITALS: BMI 28.2
--- NOTE | 2022-10-16 07:55 | ECG_ITS ---
[facility] Test Date: 2022-10-16 Pat Name: Chen Carson Department: Room: Gender: Male Template Fitter: Maddy Mchugh : 1950 Requested By: Reema Zhou Order Number: [id number] MD: Reema Zhou M.D. Interpretive Statements NAME OF STUDY: LEXISCAN SESTAMIBI STRESS TEST INDICATION: Shortness of Breath, PROCEDURE: At the baseline, the EKG revealed normal sinus rhythm with a diffuse nonspecific ST-T changes. The baseline heart was 65 bpm with a blood pressue of 151/97 mm of Hg Lexiscan was infused over a period of 20 seconds. A total of 0.4 milligrams of Lexiscan was infused. The stress phase was continued for a total of 5 minutes. Heart rate at the end of the stress phase was 75 bpm with a blood pressure 114/65 mm of Hg. The EKG at the peak infusion revealed no significant changes. Sestamibi was injected 20 seconds after the Lexiscan infusion. Heart rate at the end of the recovery phase was 70 bpm with a blood pressure of 119/64 mm of Hg. CONCLUSION: 1. No significant EKG changes with the LexiScan infusion 2. No LexiScan induced chest pain or cardiac arrhythmia 3. Normal blood pressure and heart rate response 4. Sestamibi/sestamibi perfusion scan pending; see separate report. Electronically Signed On 11-02-2022 22:05:24 MANAGEMENT PROFESSOR by Reema Zhou M.D. [id number]
--- NOTE | 2022-10-16 07:56 | NMCV_ITS ---
NM ashia perf SPECT r/s* [id number] Chen Carson Age: 72 Gender: M : 1950 Exam Date: 10/16/2022 08:45 Ordering Phys: Reema Zhou MD ([email or web address]) Technologist: MOSES Altamirano Exam Location: [facility] Indications: CORONARY ANGIOPLASTY STATUS STRESS TEST Please [facility] IMAGE PROTOCOL Rest/Stress 1 Lexiscan Day Radiopharmaceutical Dose (mCi) Administration Site Administered by Rest: Tc-99m 10.4 IV MOSES Yanes Sestamibi Stress:Tc-99m 32.6 IV MOSES Yanes Sestamibi Rest: 10/16/2022 60 Discovery 630 Stress: 10/16/2022 30 Discovery 630 0.4mg Lexiscan. Images obtained in supine and prone position. SPECT RESULTS Technical Quality: Excellent Raw Data Analysis: Normal Image Corrections: No attenuation or motion correction applied Summed Stress Score: 0 Summed Rest Score: 3 Summed Difference Score: 0 PERFUSION FINDINGS AndPatch areas of slightly decreased tracer uptake were noted in the inferolateral and apical regions. No significant reversibility was noted FUNCTIONAL RESULTS (calculated via Gated SPECT) Stress Image LV EF (%): 47 Stress EDV (mL):180 TID: 0.98 Stress ESV (mL):96 FUNCTIONAL FINDINGS: Segmental wall motion analysis revealed mild diffuse hypokinesia of the LV apex and interventricular septum. LV volume was found to be elevated with an end- systolic volume of 96, mm IMPRESSIONS 1. Myocardial perfusion imaging revealing patchy areas of persistent decreased tracer uptake in the inferolateral and apical regions, suggestive of myocardial scarring versus attenuation artifact. 2. Slightly diminished LV ejection fraction of 47%. 3. Segmental wall motion analysis revealing mild diffuse hypokinesia of the LV apex and the interventricular septum. 4. Mildly dilated LV cavity. Low probability for coronary ischemia, based on the above findings Dr Reema Zhou MD FAC (Electronically Signed) Final Date: 16 October 2022 19:02 S
[2022-10-16] MEDS: regadenoson 0.4 Mg/5 ml Syringe IVP (09:20)
[2022-10-16 09:35] VITALS: BP 119/64; PULSE 70
== END 2022-10-16 07:21 | disposition home or self-care (01) ==
PROVIDERS: PCP Family Medicine; Visit Provider Internal Medicine Cardiovascular Disease
DX: Z98.61 Coronary angioplasty status (principal); R06.02 Shortness of breath
CPT/HCPCS: 36415; 78452; 93017; 96374; A9500; J2785

== ENCOUNTER → 2022-11-20 10:25 | Outpatient (BNVA) | payer MEDICARE, SELFPAY | PROVIDERS: PCP Family Medicine; Visit Provider Family Medicine | DX: I25.10 Atherosclerotic heart disease of native coronary artery without angina pectoris (principal); K64.8 Other hemorrhoids; E87.1 Hypo-osmolality and hyponatremia; E78.5 Hyperlipidemia, unspecified; E11.59 Type 2 diabetes mellitus with other circulatory complications; E11.65 Type 2 diabetes mellitus with hyperglycemia | CPT/HCPCS: 80053; 80061; 82043; 83036 ==

== ENCOUNTER → 2022-11-27 08:21 | Outpatient (BNVA) | payer MEDICARE, SELFPAY | PROVIDERS: PCP Family Medicine; Visit Provider Internal Medicine | DX: E11.59 Type 2 diabetes mellitus with other circulatory complications (principal); E11.65 Type 2 diabetes mellitus with hyperglycemia; I25.10 Atherosclerotic heart disease of native coronary artery without angina pectoris; E78.5 Hyperlipidemia, unspecified; Z79.4 Long term (current) use of insulin; Z79.84 Long term (current) use of oral hypoglycemic drugs | CPT/HCPCS: 99214 ==

== ENCOUNTER → 2023-01-03 12:30 | Outpatient (BNVA) | payer MEDICARE, SELFPAY | PROVIDERS: PCP Family Medicine; Visit Provider Family Medicine | DX: E11.65 Type 2 diabetes mellitus with hyperglycemia (principal); E87.1 Hypo-osmolality and hyponatremia; I10 Essential (primary) hypertension | CPT/HCPCS: 80053; 85025 ==

== ENCOUNTER → 2023-01-15 13:20 | Outpatient (BNVA) | payer MEDICARE, SELFPAY | PROVIDERS: PCP Family Medicine; Visit Provider Family Medicine | DX: D72.829 Elevated white blood cell count, unspecified (principal); N31.9 Neuromuscular dysfunction of bladder, unspecified | CPT/HCPCS: 80053; 85025 ==

== ENCOUNTER → 2023-01-29 09:59 | Outpatient (BNVA) | payer MEDICARE, SELFPAY | PROVIDERS: PCP Family Medicine; Visit Provider Internal Medicine | DX: E11.59 Type 2 diabetes mellitus with other circulatory complications (principal); E11.65 Type 2 diabetes mellitus with hyperglycemia; I25.10 Atherosclerotic heart disease of native coronary artery without angina pectoris; E78.5 Hyperlipidemia, unspecified; Z79.4 Long term (current) use of insulin; Z79.84 Long term (current) use of oral hypoglycemic drugs; Z87.440 Personal history of urinary (tract) infections | CPT/HCPCS: 99214 ==

== ENCOUNTER → 2023-02-18 11:38 | Outpatient (BNVA) | payer MEDICARE, SELFPAY | PROVIDERS: PCP Family Medicine; Visit Provider Family Medicine | DX: D72.829 Elevated white blood cell count, unspecified (principal); I10 Essential (primary) hypertension | CPT/HCPCS: 80053; 85025 ==

== ENCOUNTER → 2023-02-22 12:18 | Outpatient (BNVA) | payer MEDICARE, SELFPAY | PROVIDERS: PCP Family Medicine; Visit Provider Family Medicine | DX: D72.829 Elevated white blood cell count, unspecified (principal); N39.0 Urinary tract infection, site not specified | CPT/HCPCS: 81000; 87077; 87086; 87184 ==

== ENCOUNTER → 2023-02-25 13:54 | Outpatient (BNVA) | payer MEDICARE, SELFPAY | PROVIDERS: PCP Family Medicine; Visit Provider Family Medicine | DX: D72.829 Elevated white blood cell count, unspecified (principal) | CPT/HCPCS: 80053; 85025 ==

== ENCOUNTER → 2023-02-28 10:51 | Outpatient (BNVA) | payer MEDICARE, SELFPAY | PROVIDERS: PCP Family Medicine; Visit Provider Internal Medicine Cardiovascular Disease | DX: I25.10 Atherosclerotic heart disease of native coronary artery without angina pectoris (principal); I48.91 Unspecified atrial fibrillation; Z79.01 Long term (current) use of anticoagulants; E11.65 Type 2 diabetes mellitus with hyperglycemia; Z79.4 Long term (current) use of insulin; I10 Essential (primary) hypertension; E78.5 Hyperlipidemia, unspecified | CPT/HCPCS: 99214 ==

== ENCOUNTER → 2023-03-12 14:08 | Outpatient (BNVA) | payer MEDICARE, SELFPAY | PROVIDERS: PCP Family Medicine; Visit Provider Family Medicine | DX: N39.0 Urinary tract infection, site not specified (principal) | CPT/HCPCS: 81000; 87086 ==

== ENCOUNTER → 2023-03-27 12:36 | Outpatient (BNVA) | payer MEDICARE, SELFPAY | PROVIDERS: PCP Family Medicine; Visit Provider Family Medicine | DX: N31.9 Neuromuscular dysfunction of bladder, unspecified (principal); N39.0 Urinary tract infection, site not specified | CPT/HCPCS: 81000; 87086 ==

== ENCOUNTER → 2023-04-23 10:34 | Outpatient (BNVA) | payer MEDICARE, SELFPAY | PROVIDERS: PCP Family Medicine; Visit Provider Internal Medicine | DX: E11.59 Type 2 diabetes mellitus with other circulatory complications (principal); E11.65 Type 2 diabetes mellitus with hyperglycemia; E78.5 Hyperlipidemia, unspecified; I25.10 Atherosclerotic heart disease of native coronary artery without angina pectoris; E11.9 Type 2 diabetes mellitus without complications | CPT/HCPCS: 80053; 80061; 82043; 83036 ==

== ENCOUNTER → 2023-04-30 08:46 | Outpatient (BNVA) | payer MEDICARE, SELFPAY | PROVIDERS: PCP Family Medicine; Visit Provider Internal Medicine | DX: E11.65 Type 2 diabetes mellitus with hyperglycemia (principal); E11.59 Type 2 diabetes mellitus with other circulatory complications; I25.10 Atherosclerotic heart disease of native coronary artery without angina pectoris; E78.5 Hyperlipidemia, unspecified; Z79.4 Long term (current) use of insulin | CPT/HCPCS: 99214 ==

== ENCOUNTER → 2023-08-20 12:06 | Outpatient (BNVA) | payer MEDICARE, SELFPAY | PROVIDERS: PCP Family Medicine; Visit Provider Family Medicine | DX: Z13.6 Encounter for screening for cardiovascular disorders (principal); I10 Essential (primary) hypertension; E11.59 Type 2 diabetes mellitus with other circulatory complications; I25.10 Atherosclerotic heart disease of native coronary artery without angina pectoris; I48.0 Paroxysmal atrial fibrillation; E78.5 Hyperlipidemia, unspecified; E11.65 Type 2 diabetes mellitus with hyperglycemia; E87.1 Hypo-osmolality and hyponatremia; N31.9 Neuromuscular dysfunction of bladder, unspecified; Z98.890 Other specified postprocedural states; Z87.19 Personal history of other diseases of the digestive system | CPT/HCPCS: 80053; 80061; 83036; 85025 ==

== ENCOUNTER → 2023-09-17 10:57 | Outpatient (BNVA) | payer MEDICARE, SELFPAY | PROVIDERS: PCP Family Medicine; Visit Provider Internal Medicine | DX: E11.65 Type 2 diabetes mellitus with hyperglycemia (principal); E78.5 Hyperlipidemia, unspecified; E11.59 Type 2 diabetes mellitus with other circulatory complications; I25.10 Atherosclerotic heart disease of native coronary artery without angina pectoris; Z79.4 Long term (current) use of insulin | CPT/HCPCS: 99214 ==

== ENCOUNTER → 2023-10-02 09:46 | Outpatient (BNVA) | payer MEDICARE, SELFPAY | PROVIDERS: PCP Family Medicine; Visit Provider Nurse Practitioner Family | DX: I10 Essential (primary) hypertension (principal); E11.59 Type 2 diabetes mellitus with other circulatory complications; I25.10 Atherosclerotic heart disease of native coronary artery without angina pectoris; Z79.4 Long term (current) use of insulin | CPT/HCPCS: 99214 ==

== ENCOUNTER 2023-12-17 09:33 | Outpatient (CLI) | payer MEDICARE, SELFPAY ==
[2023-12-17 10:11] LABS: Estmated Average Glucose 217; Hemoglobin A1C 9.2 % (4.0-6.0)
[2023-12-17 10:18] LABS: Alanine Aminotransferase 18 U/L (0-41); Albumin Level 4.3 g/dL (3.5-5.2); Alkaline Phosphatase 141 U/L (40-130); Anion Gap 17.8 (5-19); Aspartate Amino Transferase 16 U/L (0-40); Blood Urea Nitrogen 19 mg/dL (8-23); Calcium 9.2 mg/dL (8.5-10.5); Carbon Dioxide 22 mmol/L (22-29); Chloride 103 mmol/L (98-107); Chol HDL Ratio 4.94 mg/dL (1.0-5.00); Cholesterol 168 mg/dL (0-200); Globulin 2.8 g/dL (1.3-4.6); Glucose 354 mg/dL (65-115); HDL Cholesterol 34 mg/dL (60-100); LDL Cholesterol Calculated 103 mg/dL (50-129); LDL HDL Ratio 3.03 RATIO (0.00-3.22); Osmolality Calculated 302 mOsm/kg (285-295); Potassium 4.8 mmol/L (3.5-5.1); Sodium 138 mmol/L (136-145); Total Bilirubin 0.6 mg/dL (0.15-1.2); Total Protein 7.1 g/dL (6.6-8.7); Triglycerides 156 mg/dL (0-150)
[2023-12-17 10:26] LABS: Creatinine Urine, Random 86 mg/dL (39-259); Microalbum Creatinine Ratio Ur 140 mg/dL (0-20); Microalbumin Random Urine 12 ug/dL (0-20)
== END 2023-12-17 09:34 | disposition home or self-care (01) ==
LOC: LAB 09:34
PROVIDERS: PCP Family Medicine; Visit Provider Internal Medicine
DX: E11.65 Type 2 diabetes mellitus with hyperglycemia (principal); E78.5 Hyperlipidemia, unspecified
CPT/HCPCS: 36415; 80053; 80061; 82044; 83036

== ENCOUNTER 2024-01-03 23:03 | Inpatient (IN) | payer MEDICARE, SELFPAY ==
[2024-01-03 23:07] VITALS: BP 145/79; PULSE 73; RESP 15; TEMP 36.2; O2SAT 96; BMI 28.2
--- NOTE | 2024-01-03 23:10 | ECG_ITS ---
[facility] Test Date: 2024-01-03 Pat Name: Chen Carson Department: Room: Gender: Male Rn Diabetes Educator: : 1950 Requested By: Aden Farmer Order Number: [id number] MD: Juan Carlos Adame M.D. Measurements Intervals [place] Rate: 66 P: 18 MS: 136 QRS: -15 QRSD: 105 T: 82 QT: 390 QTc: 411 Interpretive Statements SINUS RHYTHM WITH OCCASIONAL VENTRICULAR PREMATURE COMPLEXES LEFT VENTRICULAR HYPERTROPHY AND ST-T CHANGE [VOLTAGE CRITERIA PLUS ST/T ABNORMALITY] Compared to ECG 06/18/2022 17:41:52 Left ventricular hypertrophy now present ST (T wave) deviation now present Intraventricular conduction delay no longer present Electronically Signed On 01-05-2024 12:37:06 CDT by Juan Carlos Adame M.D. [id number]
--- NOTE | 2024-01-03 23:10 | XRR_ITS ---
PROCEDURE INFORMATION: Exam: XR Chest Exam date and time: 01/03/2024 11:28 PM Age: 73 years old Clinical indication: Other: Syncope TECHNIQUE: Imaging protocol: Radiologic exam of the chest. Views: 1 view. COMPARISON: CT angio chest PE protcl [id number] 06/18/2022 4:59 PM FINDINGS: Lungs: Unremarkable. No consolidation. Pleural spaces: Unremarkable. No pleural effusion. No pneumothorax. Heart/Mediastinum: Unremarkable. No cardiomegaly. Bones/joints: Unremarkable. XR/XR chest 1V portable [id number] IMPRESSION: No acute findings.
--- NOTE | 2024-01-03 23:10 | CTR_ITS ---
PROCEDURE INFORMATION: Exam: CT Head Without Contrast Exam date and time: 01/04/2024 12:06 AM Age: 73 years old Clinical indication: Syncope and collapse; Additional info: Syncope fall on eliquis TECHNIQUE: Imaging protocol: Computed tomography of the head without contrast. Radiation optimization: All CT scans at this facility use at least one of these dose optimization techniques: automated exposure control; mA and/or kV adjustment per patient size (includes targeted exams where dose is matched to clinical indication); or iterative reconstruction. COMPARISON: MR head wo con* [id number] 06/19/2022 9:52 AM RADIATION DOSE METRICS: Total DLP (mGy-cm): 1069.9 FINDINGS: Brain: Normal. No hemorrhage. Unremarkable white matter. No mass effect. Cerebral ventricles: No ventriculomegaly. Paranasal sinuses: Visualized sinuses are unremarkable. No fluid levels. Mastoid air cells: Visualized mastoid air cells are well aerated. Bones: Unremarkable. No acute fracture. Soft tissues: Unremarkable. CT/CT head wo con* [id number] IMPRESSION: No acute intracranial abnormality.
[2024-01-03 23:30] LABS: INR 0.96 (0.8-1.2)
[2024-01-03 23:36] LABS: Basophils % 0.2 %; Eosinophils # 0.3 10^3/uL (0.0-0.8); Eosinophils % 2.2 %; Hematocrit 36.3 % (37-53); Lymphocytes # 2.8 10^3/uL (0.8-4.8); Lymphocytes % 24.5 %; Mean Corpuscular HGB Conc 35.8 g/dL (30-55); Mean Corpuscular Hemoglobin 29.4 pg (27-33); Mean Corpuscular Volume 82.1 fl (82-101); Mean Platelet Volume 9.8 fL (7.4-10.4); Monocytes # 0.9 10^3/uL (0.2-0.9); Neutrophils # 7.37 10^3/uL (1.8-7.7); Neutrophils % 64.4 %; Nucleated Red Blood Cells % 0 %; Platelet Count 226 10^3/cmm (157-399); Red Blood Count 4.42 10^6/uL (3.85-5.65); Red Cell Distribution Width 13.2 % (12.1-15.1); White Blood Count 11.45 10^3/uL (3.29-11.43)
[2024-01-03 23:37] LABS: Troponin(5th) Baseline 24 ng/L (0-15)
[2024-01-03 23:38] LABS: Alanine Aminotransferase 29 U/L (0-41); Albumin Level 4.3 g/dL (3.5-5.2); Alkaline Phosphatase 131 U/L (40-130); Blood Urea Nitrogen 26 mg/dL (8-23); Calcium 9.1 mg/dL (8.5-10.5); Carbon Dioxide 20 mmol/L (22-29); Chloride 103 mmol/L (98-107); Globulin 2.1 g/dL (1.3-4.6); Glucose 156 mg/dL (65-115); Magnesium 1.7 mg/dL (1.7-2.3); Osmolality Calculated 296 mOsm/kg (285-295); Sodium 139 mmol/L (136-145); Total Bilirubin 0.3 mg/dL (0.15-1.2); Total Protein 6.4 g/dL (6.6-8.7)
[2024-01-03 23:39] LABS: Anion Gap 19.5 (5-19); Aspartate Amino Transferase 29 U/L (0-40); Potassium 3.5 mmol/L (3.5-5.1)
--- NOTE | 2024-01-03 23:45 | ED_ITS ---
HPI - Syncope 2 General: Chief Complaint: Syncope Stated Complaint: dizzy Time Seen by Provider: 01/03/24 23:06 History of Present Illness: Patient presents to the ER by EMS with complaints of syncope. Patient's heard him hit the floor and found him unresponsive. Patient was unresponsive for about 5 minutes. Patient does have a history of syncope several times in the past. Patient does not remember this event or any inciting factors. Patient is not complaining of any pain at this current time. Sometime between passing out and now he is incontinent of bowel and bladder. Per the chart patient is on apixaban. Review of Systems 2 General: Reports: 10 or more systems reviewed and unremarkable except in HPI and below PFSH ED 2 PFSH: Medical History Leukocytosis Intracranial arteriosclerosis Syncope Hypertension Depression Type 2 diabetes mellitus Surgical History History of intravascular stent placement H/O inguinal hernia repair History of appendectomy Family History Mother Cancer breast cancer Diabetes Hypertension Father Hypertension CAD (coronary artery disease) Social History Smoking and tobacco/nicotine status: never used tobacco/nicotine Second hand smoke exposure: Yes Alcohol intake: never Caregiver/support person: No Lives independently: Yes Household members: spouse Marital status: Current occupational status: retired Physical Exam 2 Const: COMMON NORMALS: no acute distress, average body habitus, patient oriented x3, no limitations, healthy appearing, alert and well nourished HENMT: COMMON NORMALS: normocephalic, atraumatic, hearing grossly normal bilaterally, external ears normal, Normal external nose present, moist oral mucous membranes and oropharynx normal HEAD & SCALP: normocephalic and atraumatic NOSE: Normal external nose present EXTERNAL EAR: Yes external ears normal Neck/C-Spine: COMMON NORMALS: full ROM, no lymphadenopathy, supple, no meningeal signs, no JVD and Thyroid normal THYROID: Thyroid normal Chest: COMMONS NORMALS: normal inspection of the chest and normal palpation of entire chest wall Resp: COMMON NORMALS: normal respiratory effort, No retractions, No use of accessory muscles and clear to auscultation bilaterally AUSCULTATION: clear to auscultation bilaterally Cardio: COMMON NORMALS: no JVD, regular rate, regular rhythm, S1 normal heart sound present, S2 normal heart sound present, No gallops present (Cardio), No clicks present (Cardio), No murmurs present (Cardio) and No rub (Cardio) R ATE: regular rate RHYTHM: regular rhythm HEART SOUNDS: S1 normal heart sound present and S2 normal heart sound present GI: COMMON NORMALS: Normal to inspection, nondistended, normoactive bowel sounds present, Soft to palpation, non-tender, No hepatosplenomegaly present and no masses PALPATION: Yes Soft to palpation and Yes No hepatosplenomegaly present Neuro: COMMON NORMALS: patient oriented x3 SENSORIUM/ORIENTATION: Yes alert MENINGEAL SIGNS: Yes no meningeal signs Course 2 Vital Signs: Vital signs: Vital Signs Temperature 97.1 F L 01/03/24 23:07 Pulse Rate 78 01/04/24 00:49 Respiratory Rate 18 01/04/24 00:49 Blood Pressure 160/71 01/04/24 00:49 Pulse Oximetry 94 01/04/24 00:49 Oxygen Delivery Me thod Room Air 01/04/24 00:49 MDM - Syncope Medical Decision Making Patient has no complaints during his stay in the ER. Lab work EKGs chest x-ray and head CT were obtained. All of which was essentially benign, initial troponin was approximately 24 with a 2-hour troponin of approximately 35 for delta of about 11, patient did not have any chest pain during this episode. Patient has seen Dr. Zhou in the past. Patient be placed on telemetry MedSur obs for serial troponins. Differential Diagnosis Likely syncope due to orthostatic hypotension and vasovagal syncope; Unlikely complete atrioventricular block, subarachnoid hemorrhage, pulmonary embolism or dehydration Medical Records I reviewed the patient's medical records. Lab Data I reviewed the patient's lab results. 01/03/24 23:10 01/03/24 23:10 Radiology Impressions Chest X-Ray 01/03/24 23:10 IMPRESSION: No acute findings. Head CT 01/03/24 23:10 IMPRESSION: No acute intracranial abnormality. Laboratory Results WBC 11.45 10^3/uL (3.29-11.43) H 01/03/24 23:10 RBC 4.42 10^6/uL (3.85-5.65) 01/03/24 23:10 Hgb 13.00 g/dL (11.27-16.99) 01/03/24 23:10 Hct 36.3 % (37-53) L 01/03/24 23:10 MCV 82.1 fl (82-101) 01/03/24 23:10 MCH 29.4 pg (27-33) 01/03/24 23:10 MCHC 35.8 g/dL (30-55) 01/03/24 23:10 RDW 13.2 % (12.1-15.1) 01/03/24 23:10 Plt Count 226 10^3/cmm (157-399) 01/03/24 23:10 MPV 9.8 fL (7.4-10.4) 01/03/24 23:10 Neut % (Auto) 64.4 % 01/03/24 23:10 Lymph % (Auto) 24.5 % 01/03/24 23:10 Holt % (Auto) 8.0 % 01/03/24 23:10 Eos % (Auto) 2.2 % 01/03/24 23:10 Baso % (Auto) 0.2 % 01/03/24 23:10 Neut # (Auto) 7.37 10^3/uL (1.8-7.7) 01/03/24 23:10 Lymph # (Auto) 2.8 10^3/uL (0.8-4.8) 01/03/24 23:10 Holt # (Auto) 0.9 10^3/uL (0.2-0.9) 01/03/24 23:10 Eos # (Auto) 0.3 10^3/uL (0.0-0.8) 01/03/24 23:10 Baso # (Auto) 0.0 10^3/uL (0.0-0.1) 01/03/24 23:10 Nucleated RBC % (auto) 0 % 01/03/24 23:10 Nucleated RBCs # 0.0 /100WBC 01/03/24 23:10 PT 13.10 SECONDS (12.1-14.9) 01/03/24 23:10 INR 0.96 (0.8-1.2) 01/03/24 23:10 Sodium 139 mmol/L (136-145) 01/03/24 23:10 Potassium 3.5 mmol/L (3.5-5.1) 01/03/24 23:10 Chloride 103 mmol/L (98-107) 01/03/24 23:10 Carbon Dioxide 20 mmol/L (22-29) L 01/03/24 23:10 Anion Gap 19.5 (5-19) H 01/03/24 23:10 BUN 26 mg/dL (8-23) H 01/03/24 23:10 Creatinine 1.0 mg/dL (0.7-1.2) 01/03/24 23:10 GFR Calculation Not Reportable 01/03/24 23:10 Glucose 156 mg/dL (65-115) H 01/03/24 23:10 Calculated Osmolality 296 mOsm/kg (285-295) H 01/03/24 23:10 Calcium 9.1 mg/dL (8.5-10.5) 01/03/24 23:10 Magnesium 1.7 mg/dL (1.7-2.3) 01/03/24 23:10 Total Bilirubin 0.3 mg/dL (0.15-1.2) 01/03/24 23:10 AST 29 U/L (0-40) 01/03/24 23:10 ALT 29 U/L (0-41) 01/03/24 23:10 Alkaline Phosphatase 131 U/L (40-130) H 01/03/24 23:10 Troponin T Baseline 24 ng/L (0-15) H 01/03/24 23:10 Troponin T 120 Minute 35.82 ng/L (0-15) H 01/04/24 00:52 Delta Troponin T 11.82 ABS# (0-10) H* 01/04/24 00:52 Total Protein 6.4 g/dL (6.6-8.7) L 01/03/24 23:10 Albumin 4.3 g/dL (3.5-5.2) 01/03/24 23:10 Globulin 2.1 g/dL (1.3-4.6) 01/03/24 23:10 All radiology interpretation(s) finalized by discharge Discharge Plan Discharge Patient Disposition: Placed in Observation Clinical Impression: Syncope, Elevated troponin Coding Level of Care Code ED Sign Shop Supervisor for Carlos Chance
[2024-01-04] VITALS (13 sets, daily range): BP systolic 115–173; BP diastolic 53–90; PULSE 58–113; RESP 15–18; TEMP 36.3–36.8; O2SAT 92–96; BMI 28.2
--- NOTE | 2024-01-04 00:36 | ECG_ITS ---
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 Measurements Intervals [place] Rate: 80 P: 35 VT: 128 QRS: -11 QRSD: 113 T: 64 QT: 372 QTc: 430 Interpretive Statements SINUS RHYTHM WITH FREQUENT VENTRICULAR PREMATURE COMPLEXES MODERATE INTRAVENTRICULAR CONDUCTION DELAY [110+ ms QRS DURATION] NONSPECIFIC ST & T-WAVE ABNORMALITY Compared to ECG 01/03/2024 23:10:39 Intraventricular conduction delay now present T-wave abnormality now present Left ventricular hypertrophy no longer present ST (T wave) deviation no longer present Electronically Signed On 01-05-2024 12:33:46 CDT by Juan Carlos Adame M.D. [email or web address].Torsion Mobileturning point mature adult care unitTenant Magicfayette [facility] memorial [facility].[employer]/store/OM/[id number]
--- NOTE | 2024-01-04 01:11 | ECG_ITS ---
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 Measurements Intervals [place] Rate: 78 P: 52 SC: 142 QRS: -1 QRSD: 108 T: 57 QT: 358 QTc: 410 Interpretive Statements SINUS RHYTHM WITH OCCASIONAL VENTRICULAR PREMATURE COMPLEXES NONSPECIFIC ST & T-WAVE ABNORMALITY Compared to ECG 01/04/2024 00:36:36 Intraventricular conduction delay no longer present T-wave abnormality still present Electronically Signed On 01-05-2024 12:47:58 CDT by Juan Carlos Adame M.D. [id number]
[2024-01-04 01:13] LABS: Troponin 5 2HR 35.82 ng/L (0-15)
[2024-01-04 01:17] LABS: Troponin 5 2HR Delta 11.82 ABS# (0-10)
--- NOTE | 2024-01-04 01:42 | P.HP_ITS ---
Providers/Chief Complaint 2 Primary Care Provider: Grover Servin DO Chief Complaint: dizzy History of Present Illness Chen Carson is a 73 year old male with a past medical history significant for coronary artery disease, atrial fibrillation, hyperlipidemia, hypertension, type 2 diabetes mellitus, and syncope who presents to the emergency department with syncopal episode. Patient notes that he exerted himself more than usual yesterday. He states that after dinner he had gotten up and gone into the kitchen at which time he became dizzy. The next thing he remembers easily waking up. His family members bedside and states that she heard him hit the floor. He was unconscious for about 5 minutes. He does wear continuous glucose monitor and she checked his glucose level. His glucose level during and after the incident ranged from 120s to 180s. She reports when he woke up he was short of breath. He denies any chest pain or other neurological changes. Patient has a history of syncope. He was admitted in June 2022 for syncopal episode, found to have atrial fibrillation with rapid ventricular rate. Event monitor was performed at that time. Review of Systems 2 Narrative: A complete review of systems was obtained and is negative except as stated in HPI. Medications/Allergies Home Medications Medication Instructions Recorded Confirmed Last Taken Type albuterol sulfate 90 mcg/actuation 2 inh inhalation Q4H PRN shortness 04/02/21 01/04/24 01/03/24 Rx aerosol inhaler of breath or wheezing #8.5 grams blood sugar diagnostic (ReliRick #400 ea 11/14/21 01/04/24 Unknown Rx Prime Test Strips) omeprazole 20 mg capsule,delayed 20 mg PO DAILY #90 caps 02/18/23 01/04/24 01/03/24 Rx release ciprofloxacin HCl 500 mg tablet 500 mg PO BID for uti, x 10 days 02/26/23 01/04/24 01/03/24 Rx #20 tabs atorvastatin 80 mg tablet 80 mg PO DAILY #90 tabs 08/20/23 01/04/24 01/02/24 Rx speedy cath soft 16/5.3 #120 ea 08/20/23 01/04/24 Unknown Rx tamsulosin 0.4 mg capsule (Flomax) 0.8 mg (2 x 0.4 mg) PO DAILY #90 08/20/23 01/04/24 01/02/24 Rx caps insulin detemir U-100 100 unit/mL See Rx Instructions .Route 09/12/23 01/04/24 01/03/24 Rx subcutaneous solution (Levemir .COMPLEX #70 mL U-100 Insulin) metoprolol tartrate 25 mg tablet 12.5 mg (1/2 x 25 mg) PO BID #90 10/02/23 01/04/24 01/03/24 09:00 Rx tabs cephalexin 500 mg capsule 500 mg PO TID leg infection #15 10/04/23 01/04/24 01/03/24 Rx caps duloxetine 30 mg capsule,delayed See Rx Instructions .Route 10/04/23 01/04/24 01/02/24 18:00 Rx release .COMPLEX #60 caps amlodipine 5 mg tablet See Rx Instructions .Route 10/08/23 01/04/24 01/03/24 Rx .COMPLEX #60 tabs flash glucose sensor (FreeStyle #6 kits 10/30/23 01/04/24 Unknown Rx Luiz 2 Sensor kit) apixaban 5 mg tablet (Eliquis) See Rx Instructions .Route 11/11/23 01/04/24 01/03/24 09:00 Rx .COMPLEX #180 tabs insulin lispro 100 unit/mL See Rx Instructions .Route 11/22/23 01/04/24 01/03/24 Rx subcutaneous pen (Humalog KwikPen .COMPLEX #30 mL (U-100) Insulin) losartan 100 mg tablet See Rx Instructions .Route 12/20/23 01/04/24 01/03/24 Rx .COMPLEX #90 tabs Allergies Allergy/AdvReac Type Severity Reaction Status Date / Time acetaminophen Allergy pt states Verified 10/04/23 09:47 [From [employer] with Codeine] he goes crazy codeine Allergy pt states Verified 10/04/23 09:47 [From [employer] with Codeine] he goes crazy PFSH Acute 2 PFSH: Medical History (Updated 01/04/24 @ 02:46 by Basim Gomez MD) Leg pain Abrasion Neurogenic bladder Syncope Internal hemorrhoid Rectal bleeding Hyponatremia COVID-19 Leukocytosis Intracranial arteriosclerosis Syncope Hypertension Depression Type 2 diabetes mellitus Surgical History History of intravascular stent placement H/O inguinal hernia repair History of appendectomy Family History Mother Cancer breast cancer Diabetes Hypertension Father Hypertension CAD (coronary artery disease) Social History Smoking and tobacco/nicotine status: never used tobacco/nicotine Second hand smoke exposure: Yes Alcohol intake: never Caregiver/support person: No Lives independently: Yes Household members: spouse Marital status: Current occupational status: retired Vitals/I&O/Wt Last Vital Signs Temp 97.1 F L 01/03/24 23:07 Pulse 78 01/04/24 00:49 Resp 18 01/04/24 00:49 BP 160/71 01/04/24 00:49 Pulse Ox 94 01/04/24 00:49 O2 Del Method Room Air 01/04/24 00:49 Weight last 48 hrs Weight 79.379 kg Physical Exam 2 Narrative: General: Patient is awake and alert. Head: Normocephalic. Atraumatic. EOM intact. Neck: No JVD. Cardiovascular: RRR. No gallops. No murmurs. No peripheral edema. Lungs: Clear to auscultation, no use of accessory muscles, no crackles or wheezes. Skin: No jaundice. No rashes. Abdomen: Normal bowel sounds, abdomen soft and nontender. Genito Urinary: Genital exam not performed since complaints not related. Rectal: Rectal exam not performed since no symptoms indicated blood loss. Extremities: No cyanosis or clubbing. Musculoskeletal: 5/5 strength, normal range of motion, no swollen or erythematous joints. Neurological: Moves all 4 extremities. No myoclonus. Data 01/03/24 23:10 01/03/24 23:10 A&P Assessment and plan (1) Syncope: Patient with history of prior syncope and cardiac history Continuous telemetry monitoring for arrhythmia Monitor electrolytes Consider cardiology consult, may benefit from prolonged monitoring such as loop if inpt work up is unremarkable Qualifiers: Syncope type: unspecified Qualified Code(s): R55 - Syncope and collapse (2) Elevated troponin: Baseline troponin 24 with 2-hour repeat 35.8-4 delta of 11.82 Trend troponin Denying chest pains Telemetry monitoring EKG as needed for development of chest pain (3) Intermittent atrial fibrillation: Continue apixaban for stroke prophylaxis Continue metoprolol for rate control (4) Acidosis: Mild metabolic acidosis with bicarb of 20 Repeat labs in a.m. (5) Coronary artery disease due to type 2 diabetes mellitus: Continue high intensity statin Evaluating for ACS w/ serial troponin and telemetry (6) Hypertension: Continue losartan Continue Norvasc Continue metoprolol Qualifiers: Hypertension type: primary hypertension Qualified Code(s): I10 - Essential (primary) hypertension (7) Uncontrolled type 2 diabetes mellitus: Patient with continuous glucose monitor Last A1c 9.2 on 12/17/2023 Plan to continue formulary equivalent of home insulin Plan DVT prophylaxis: Apixaban CODE STATUS: Full code Attestations 2 Medical Necessity Statement*: Patient presents with syncope with history of coronary disease, atrial fibrillation, and prior syncope, found to have elevated troponin with expected hospitalization not to cross 2 midnights for serial cardiac enzymes and telemetry monitoring. Coding Level of Care Code Acute Code for [facility] Diagnoses Syncope R55 Syncope type: unspecified Elevated troponin R79.89 Intermittent atrial fibrillation I48.0 Acidosis E87.2 Coronary artery disease due to type 2 diabetes mellitus E11.59; I25.10 Primary hypertension I10 Hypertension type: primary hypertension Uncontrolled type 2 diabetes mellitus E11.65
[2024-01-04] MEDS: magnesium sulfate premix 2 GM/50 ML PIGGYBACK IV (02:33)
[2024-01-04 02:41] LABS: Add Urine Microscopic? YES; Bacteria Urine TRACE /hpf; Bilirubin Urine Neg (Negative); Blood Urine Neg (Negative); Glucose Urine UA 2+ (Normal); Ketones Urine 1+ (Negative); Leukocyte Esterase Urine Negative (Negative); Mucus Urine TRACE /hpf; Nitrate Urine Negative (Negative); Protein Urine 1+ (Negative); RBC Urine 0-4 /hpf (0-2); Specific Gravity, Urine 1.015 (1.005-1.030); Squamous Epithelial Cell Urine 0-4 /hpf (0-5); Urine Appearance Clear (CLEAR); Urine Color Yellow (Yellow); Urobilinogen Urine Neg (Negative); WBC Urine 0-4 /hpf (0-5); pH Urine 5 (5-7)
--- NOTE | 2024-01-04 03:57 | ECG_ITS ---
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 Measurements Intervals [place] Rate: 116 P: 0 RI: 0 QRS: -10 QRSD: 113 T: 64 QT: 302 QTc: 420 Interpretive Statements ATRIAL FIBRILLATION WITH RAPID VENTRICULAR RESPONSE WITH ABERRANT CONDUCTION OR VENTRICULAR PREMATURE COMPLEXES MODERATE INTRAVENTRICULAR CONDUCTION DELAY [105+ ms QRS DURATION, 80+ ms Q/S IN V1/V2, NO Q AND 60+ ms R IN I/aVL/V5/V6] NONSPECIFIC ST & T-WAVE ABNORMALITY Compared to ECG 01/04/2024 01:17:35 Aberrant conduction of supraventricular beat(s) now present Intraventricular conduction delay now present Sinus rhythm no longer present T-wave abnormality still present Electronically Signed On 01-05-2024 12:23:55 CDT by Juan Carlos Adame M.D. [email or web address]/[id number]
[2024-01-04] MEDS: metoprolol tartrate 1 mg/1 mL SDV 5 mL 5 MG IVP (04:31)
--- NOTE | 2024-01-04 05:11 | ECG_ITS ---
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 Measurements Intervals [place] Rate: 73 P: 41 [place]: 140 QRS: -9 QRSD: 114 T: 29 QT: 399 QTc: 440 Interpretive Statements SINUS RHYTHM MODERATE INTRAVENTRICULAR CONDUCTION DELAY [110+ ms QRS DURATION] MINIMAL VOLTAGE CRITERIA FOR LVH, CONSIDER NORMAL VARIANT [MEETS CRITERIA IN ONE OF: R(aVL), S(V1), R(V5), R(V5/V6)+S(V1)] NONSPECIFIC ST & T-WAVE ABNORMALITY Compared to ECG 01/03/2024 23:10:39 Intraventricular conduction delay now present T-wave abnormality now present Ventricular premature complex(es) no longer present ST (T wave) deviation no longer present Electronically Signed On 01-05-2024 12:48:07 CDT by Juan Carlos Adame M.D. [id number] f
[2024-01-04 06:22] LABS: Troponin 5 6HR 37.28 ng/L (0-15)
[2024-01-04 06:23] LABS: Anion Gap 17.4 (5-19); Blood Urea Nitrogen 23 mg/dL (8-23); Carbon Dioxide 21 mmol/L (22-29); Chloride 104 mmol/L (98-107); Creatinine Clr Calc Pharmacy 70.2477; Glucose 240 mg/dL (65-115); Magnesium 2.4 mg/dL (1.7-2.3); Osmolality Calculated 298 mOsm/kg (285-295); Potassium 4.4 mmol/L (3.5-5.1); Sodium 138 mmol/L (136-145)
[2024-01-04 06:27] LABS: Troponin 5 6HR Delta 13.28 ng/L (0-12)
[2024-01-04 08:40] LABS: Glucose Point of Care 352 mg/dL (70-110)
[2024-01-04] MEDS: insulin lispro 100 unit/1 mL SUBCUT ×4 (08:47→21:18)
[2024-01-04] MEDS: pantoprazole DR 40 mg Tablet PO (08:48)
[2024-01-04] MEDS: losartan 50 mg Tablet 100 MG PO (08:48)
[2024-01-04] MEDS: duloxetine 30 mg Capsule PO ×2 (08:48→17:53)
[2024-01-04] MEDS: atorvastatin 40 mg Tablet PO (08:49)
[2024-01-04] MEDS: tamsulosin 0.4 mg Capsule 0.800000000000000044 MG PO (08:49)
[2024-01-04] MEDS: metoprolol tartrate 25 mg Tablet 12.5 MG PO ×3 (08:49→21:19)
[2024-01-04] MEDS: amlodipine 10 mg Tablet PO (08:50)
[2024-01-04] MEDS: apixaban 5 mg Tablet PO ×2 (08:50→21:19)
[2024-01-04 11:27] LABS: Glucose Point of Care 258 mg/dL (70-110)
--- NOTE | 2024-01-04 15:05 | PM.MISC ---
Miscellaneous Note Note: Seen today. Orthostatic vitals are negative. Discussed with cardiology. Will keep on telemetry and consult cardiology. Echo is pending at this time.
[2024-01-04 16:04] LABS: Glucose Point of Care 209 mg/dL (70-110)
[2024-01-04] MEDS: insulin glargine 100 units/1 mL 50 UNIT SUBCUT (17:53)
[2024-01-04 21:07] LABS: Glucose Point of Care 308 mg/dL (70-110)
[2024-01-05] VITALS (83 sets, daily range): BP systolic 122–174; BP diastolic 63–113; PULSE 50–76; RESP 11–32; TEMP 36.6; O2SAT 90–100
--- NOTE | 2024-01-05 00:44 | ECG_ITS ---
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 Measurements Intervals [place] Rate: 84 P: 53 IN: 160 QRS: -6 QRSD: 145 T: 0 QT: 399 QTc: 474 Interpretive Statements SINUS RHYTHM WITH OCCASIONAL VENTRICULAR PREMATURE COMPLEXES RIGHT BUNDLE BRANCH BLOCK [120+ ms QRS DURATION, UPRIGHT V1, 40+ ms S IN I/aVL/V4/V5/V6] ST DEVIATION AND MODERATE T-WAVE ABNORMALITY, CONSIDER LATERAL ISCHEMIA [-0.1+ mV T-WAVE IN I/aVL/V5/V6] Compared to ECG 01/04/2024 04:01:40 Right bundle-branch block now present Possible ischemia now present Atrial fibrillation no longer present Aberrant conduction of supraventricular beat(s) no longer present Intraventricular conduction delay no longer present T-wave abnormality still present Electronically Signed On 01-05-2024 12:02:50 CDT by Juan Carlos Adame M.D. [email or web address]/store/[id number] f
[2024-01-05 00:50] LABS: Glucose Point of Care 79 mg/dL (70-110)
--- NOTE | 2024-01-05 00:50 | XRR_ITS ---
PROCEDURE INFORMATION: Exam: XR Chest Exam date and time: 01/05/2024 1:17 AM Age: 73 years old Clinical indication: Other: Cardiac arrest; Additional info: Post code TECHNIQUE: Imaging protocol: Radiologic exam of the chest. Views: 1 view. COMPARISON: CR (CHEST, ) 01/03/2024 11:28 PM FINDINGS: Lungs: Clear, symmetrically inflated lungs. Pleural spaces: No pleural effusion. No pneumothorax. Heart/Mediastinum: Stable moderate cardiomegaly. Vasculature: Mild distension of the azygos arch. Bones/joints: Age appropriate. XR/XR chest 1V portable [id number] IMPRESSION: 1. Mild stable cardiomegaly. Distended azygos arch suggests elevated right heart pressures. 2. Clear lungs.
--- NOTE | 2024-01-05 00:52 | PC.NURSE ---
Dr. Stafford ordered 1 mg of morphine to be given now and 1 more mg of morphine to be given 10 minutes after if the patient can tolerate it.
--- NOTE | 2024-01-05 01:04 | PM.CCNAC ---
Critical Care Event Note Responded to a rapid response on this gentleman. Was admitted for syncope, and elevated troponin on January 03. Has history of coronary artery disease, intermittent A-fib. When I arrived he had been cardioverted x 1 and received some CPR. Nursing indicates his heart rate was about 200, initially in narrow complex tachycardia. CPR was underway, and during a pulse check it was found that he was in ventricular tachycardia. He was immediately defibrillated, and CPR ensued. Epinephrine was going to be given but ROSC was achieved quickly. Blood pressure and O2 sat was acceptable. Amiodarone 150 mg IV was given and a drip was started. Intubation was considered, but he was able to open his eyes to command following ROSC. EKG was done demonstrating no ST elevation. I believe overall he probably had less than 2 minutes of CPR. He did not receive any epinephrine. Amiodarone was given as both a bolus and a drip was started. ABG shows a pH 7.389, pCO2 31, pO2 95. I have ordered a CBC, CMP, magnesium, EKG and troponin series. updated in detail. An amp of D50 was also given. Blood sugar was around 70. He is already fully anticoagulated on apixaban. Will hold this but he will need Lovenox or heparin drip at 9:00 or after if he has not already undergone angiogram. Will load with Plavix. Will go ahead and give an aspirin now. Cardiology is updated. Dilaudid will be given as needed pain. He is alert, oriented, in sinus rhythm with stable vital signs at this time. The high probability of a clinically significant, sudden or life threatening deterioration of the patient's [] system(s) required my full and direct attention, intervention and personal management. The critical care time is as shown. This time is in addition to time spent performing any reported procedures but includes the following: [x] Data and vital sign review and interpretation [x] Patient assessment, examination and intervention [x] Documentation [x] Medication orders and management Critical Care Time Code activated: Yes Critical Care Time (min): 45 Coding Level of Care Code Critical Care
[2024-01-05 01:12] LABS: Basophils % 0.3 %; Eosinophils # 0.3 10^3/uL (0.0-0.8); Eosinophils % 2.2 %; Hematocrit 40.3 % (37-53); Lymphocytes # 6.2 10^3/uL (0.8-4.8); Lymphocytes % 44.9 %; Mean Corpuscular HGB Conc 35.2 g/dL (30-55); Mean Corpuscular Hemoglobin 29.1 pg (27-33); Mean Corpuscular Volume 82.6 fl (82-101); Mean Platelet Volume 9.8 fL (7.4-10.4); Monocytes # 0.7 10^3/uL (0.2-0.9); Monocytes % 5.4 %; Neutrophils # 6.38 10^3/uL (1.8-7.7); Neutrophils % 46.2 %; Nucleated Red Blood Cells % 0 %; Platelet Count 297 10^3/cmm (157-399); Red Blood Count 4.88 10^6/uL (3.85-5.65); Red Cell Distribution Width 13.5 % (12.1-15.1); White Blood Count 13.79 10^3/uL (3.29-11.43)
[2024-01-05] MEDS: morphine 4 mg/mL SDV 1 mL 1 MG IVP (01:21)
[2024-01-05 01:23] LABS: Glucose Point of Care 216 mg/dL (70-110)
--- NOTE | 2024-01-05 01:27 | PC.NURSE ---
Received in report that Amiodorone bolus was given during code blue on medsur floor. Medication removed from crash cart on medsu.
[2024-01-05 01:31] LABS: Troponin(5th) Baseline 30 ng/L (0-15)
[2024-01-05 01:32] LABS: Anion Gap 19.4 (5-19); Blood Urea Nitrogen 22 mg/dL (8-23); Carbon Dioxide 19 mmol/L (22-29); Chloride 107 mmol/L (98-107); Glucose 217 mg/dL (65-115); Osmolality Calculated 304 mOsm/kg (285-295); Potassium 3.4 mmol/L (3.5-5.1); Sodium 142 mmol/L (136-145)
[2024-01-05 01:33] LABS: Alanine Aminotransferase 166 U/L (0-41); Alkaline Phosphatase 137 U/L (40-130); Anion Gap 19.5 (5-19); Aspartate Amino Transferase 158 U/L (0-40); Blood Urea Nitrogen 21 mg/dL (8-23); Calcium 8.7 mg/dL (8.5-10.5); Carbon Dioxide 19 mmol/L (22-29); Chloride 108 mmol/L (98-107); Globulin 1.9 g/dL (1.3-4.6); Glucose 228 mg/dL (65-115); Osmolality Calculated 306 mOsm/kg (285-295); Potassium 3.5 mmol/L (3.5-5.1); Sodium 143 mmol/L (136-145); Total Bilirubin 0.4 mg/dL (0.15-1.2); Total Protein 5.9 g/dL (6.6-8.7)
[2024-01-05] MEDS: clopidogrel 300 mg Tablet 600 MG PO (01:48)
[2024-01-05] MEDS: aspirin 81 mg Chew Tablet 324 MG PO (01:50)
[2024-01-05] MEDS: potassium chloride premix 100 ML 25 MEQ IV (01:53)
--- NOTE | 2024-01-05 01:59 | PC.NURSE ---
Patient's rhythm has been atrial fibrillation, with tachycardia during this shift. At approximately 0032, the nurse's station media monitor started alarming tachycardia and patient was showing atrial fibrillation with rapid ventricular response and a pulse of 267. Four nurses ran into patient's room and patient presented diaphoretic, pale, and groaning. Patient nodded that he was having chest pain. A rapid response was called by Irene Palafox RN at 0034. Patient was hooked up to zoll and presenting ventricular tachycardia at 0036. Patient then became unresponsive to the nurses at bedside and a carotid pulse check was performed by two bedside nurses. No pulse was palpable on patient and compressions were initiated. Dr. Stafford arrived at bedside after the rapid response was called and requested ICU transfer. A shock was then delivered at 0036 by Dominguez Voss RN. Another shock ordered at [address] Stafford, as well as an amp of D50 following a glucose of 79, IV push 150mg bolus of amioderone. Code Blue was called at 0037, by Jolie Salinas RN. ROSC was achieved at 0037 and patient was transferred to ICU 11 by Gardenia Sky LPN, Lindy Varghese RN. Beside report given by this nurse to SOULEYMANE Cardozo.
--- NOTE | 2024-01-05 02:37 | ECG_ITS ---
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 Measurements Intervals [place] Rate: 59 P: 35 AR: 151 QRS: -10 QRSD: 114 T: 201 QT: 422 QTc: 420 Interpretive Statements SINUS BRADYCARDIA WITH OCCASIONAL VENTRICULAR PREMATURE COMPLEXES MODERATE INTRAVENTRICULAR CONDUCTION DELAY [110+ ms QRS DURATION] ST DEVIATION AND MODERATE T-WAVE ABNORMALITY, CONSIDER ANTEROLATERAL ISCHEMIA [-0.1+ mV T-WAVE IN V3-V6] ST DEVIATION AND MODERATE T-WAVE ABNORMALITY, CONSIDER INFERIOR ISCHEMIA [-0.1+ mV T-WAVE IN II/aVF] Compared to ECG 01/04/2024 04:01:40 Possible ischemia now present Atrial fibrillation no longer present Aberrant conduction of supraventricular beat(s) no longer present T-wave abnormality still present Electronically Signed On 01-05-2024 12:40:43 CDT by Juan Carlos Adame M.D. [id number]
[2024-01-05 05:57] LABS: ABG PCO2 30.8 mmHg (35-45); ABG PH Result 7.39 (7.35-7.45); Alveolar-Arterial Oxygen Gradi 15.8 mmHg (5-10); Arterial Blood Gas Hematocrit 42.8 % (42-52); Base Excess ABG -5.2 mmol/L (-2.0-2.0); Blood Gas Allen Test Pos; Blood Gas Operator Identificat glc; Blood Gas Sample Site Radial, right; Blood Gas Sample Type Arterial; Carboxyhemoglobin < 0.0 %THgb (0.4-20.1); HCO3 ABG 18.6 mmol/L (22-26); HGB O2 Sat 95.8 % (95-100); Ionized Calcium Level - ABG 1.2 mmol/L (1.1-1.4); Methemoglobin 0.3 % (0.4-1.5); Oxygen Device NC; Oxygen Saturation ABG 95.9; PO2 ABG 94.9 mmHg (80.0-100.0); PO2 FiO2 Ratio Arterial Blood 0; Potassium Level - ABG 3.1 mmol/L (3.5-5.0)
--- NOTE | 2024-01-05 06:49 | ECG_ITS ---
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 Measurements Intervals [place] Rate: 58 P: 39 PA: 157 QRS: 6 QRSD: 101 T: -57 QT: 428 QTc: 421 Interpretive Statements SINUS BRADYCARDIA ST DEVIATION AND MODERATE T-WAVE ABNORMALITY, CONSIDER ANTEROLATERAL ISCHEMIA [-0.1+ mV T-WAVE IN V3-V6] Compared to ECG 01/05/2024 02:37:58 Ventricular premature complex(es) no longer present Intraventricular conduction delay no longer present T-wave abnormality still present Possible ischemia still present Electronically Signed On 01-05-2024 12:40:39 CDT by Juan Carlos Adame M.D. [id number]
--- NOTE | 2024-01-05 08:12 | P.CONIM_ITS ---
Providers/Reason For Consult 2 Consulting Physician/Specialty*: Juan Carlos Adame MD/ Cardiology Reason for Consult*: Troponin elevation/ventricular tachycardia Requesting Physician: Dr Sanchez Attending Physician: Tierney Sanchez MD Primary Care Provider: Grover Servin DO History of Present Illness History of Present Illness Chen Carson is a 73 year old male with past medical history of hypertension, atrial fibrillation, CAD with stent several years ago presented to hospital with syncopal episode. No warning signs or symptoms before that. His troponin was mildly elevated. Plan was to perform stress test on Saturday. However last night he lost the pulse and was shocked x 2. Prior to second shock, he was in ventricular tachycardia. Initial rhythm is unknown but likely was narrow complex. Troponin post shocks went upto 50. Has some soreness in the chest but no significant chest pain. Has been started on amiodarone drip. Review of Systems 2 Narrative: A complete review of systems was obtained and is negative except as stated in HPI. Medications/Allergies Home Medications Medication Instructions Recorded Confirmed Last Taken Type albuterol sulfate 90 mcg/actuation 2 inh inhalation Q4H PRN shortness 04/02/21 01/04/24 01/03/24 Rx aerosol inhaler of breath or wheezing #8.5 grams blood sugar diagnostic (ReliOn #400 ea 11/14/21 01/04/24 Unknown Rx Prime Test Strips) omeprazole 20 mg capsule,delayed 20 mg PO DAILY #90 caps 02/18/23 01/04/24 01/03/24 Rx release ciprofloxacin HCl 500 mg tablet 500 mg PO BID for uti, x 10 days 02/26/23 01/04/24 01/03/24 Rx #20 tabs atorvastatin 80 mg tablet 80 mg PO DAILY #90 tabs 08/20/23 01/04/24 01/02/24 Rx speedy cath soft 16/5.3 #120 ea 08/20/23 01/04/24 Unknown Rx tamsulosin 0.4 mg capsule (Flomax) 0.8 mg (2 x 0.4 mg) PO DAILY #90 08/20/23 01/04/24 01/02/24 Rx caps insulin detemir U-100 100 unit/mL See Rx Instructions .Route 09/12/23 01/04/24 01/03/24 Rx subcutaneous solution (Levemir .COMPLEX #70 mL U-100 Insulin) metoprolol tartrate 25 mg tablet 12.5 mg (1/2 x 25 mg) PO BID #90 10/02/23 01/04/24 01/03/24 09:00 Rx tabs cephalexin 500 mg capsule 500 mg PO TID leg infection #15 10/04/23 01/04/24 01/03/24 Rx caps duloxetine 30 mg capsule,delayed See Rx Instructions .Route 10/04/23 01/04/24 01/02/24 18:00 Rx release .COMPLEX #60 caps amlodipine 5 mg tablet See Rx Instructions .Route 10/08/23 01/04/24 01/03/24 Rx .COMPLEX #60 tabs flash glucose sensor (FreeStyle #6 kits 10/30/23 01/04/24 Unknown Rx Luiz 2 Sensor kit) apixaban 5 mg tablet (Eliquis) See Rx Instructions .Route 11/11/23 01/04/24 01/03/24 09:00 Rx .COMPLEX #180 tabs insulin lispro 100 unit/mL See Rx Instructions .Route 11/22/23 01/04/24 01/03/24 Rx subcutaneous pen (Humalog KwikPen .COMPLEX #30 mL (U-100) Insulin) losartan 100 mg tablet See Rx Instructions .Route 12/20/23 01/04/24 01/03/24 Rx .COMPLEX #90 tabs Allergies Allergy/AdvReac Type Severity Reaction Status Date / Time acetaminophen Allergy pt states Verified 10/04/23 09:47 [From [facility] with Codeine] he goes crazy codeine Allergy pt states Verified 10/04/23 09:47 [From [facility] with Codeine] he goes crazy Current Medications Generic Name Dose Route Start Last Admin Trade Name Freq PRN Reason Stop Dose Admin Amlodipine Besylate 10 mg 01/04/24 09:00 01/04/24 08:50 Amlodipine 10 Mg Tablet PO 10 mg DAILY SUNIL Administration Atorvastatin Calcium 40 mg 01/04/24 09:00 01/04/24 08:49 Atorvastatin 40 Mg Tablet PO 40 mg DAILY SUNIL Administration Duloxetine HCl 30 mg 01/04/24 09:00 01/04/24 17:53 Duloxetine 30 Mg Capsule PO 30 mg BID SUNIL Administration Amiodarone HCl/Dextrose 360 mg in 200 mls @ 0 mls/hr 01/05/24 00:42 01/05/24 06:24 Nexterone IV 0.5 mg/min .Q0M SUNIL 16.67 mls/hr Administration Protocol Per Protocol Insulin Human Lispro 0 unit 01/04/24 08:00 01/04/24 21:18 Insulin Lispro 100 Unit/1 Ml SUBCUT 12 unit WM&BEDTIME SUNIL Administration Protocol Pantoprazole Sodium 40 mg 01/04/24 09:00 01/04/24 08:[address] 40 Mg Tablet PO 40 mg DAILY SUNIL Administration Tamsulosin HCl 0.8 mg 01/04/24 09:00 01/04/24 08:49 Tamsulosin 0.4 Mg Capsule PO 0.8 mg DAILY SUNIL Administration PFSH Acute 2 PFSH: Medical History Leg pain Abrasion Neurogenic bladder Syncope Internal hemorrhoid Rectal bleeding Hyponatremia COVID-19 Leukocytosis Intracranial arteriosclerosis Syncope Hypertension Depression Type 2 diabetes mellitus Surgical History History of intravascular stent placement H/O inguinal hernia repair History of appendectomy Family History Mother Cancer breast cancer Diabetes Hypertension Father Hypertension CAD (coronary artery disease) Social History Smoking and tobacco/nicotine status: never used tobacco/nicotine Second hand smoke exposure: Yes Alcohol intake: never Caregiver/support person: No Lives independently: Yes Household members: spouse Marital status: Current occupational status: retired Vitals/I&O/Wt Last Vital Signs Temp 97.9 F 01/05/24 02:30 Pulse 57 L 01/05/24 05:54 Resp 15 01/05/24 05:30 BP 125/69 01/05/24 05:30 Pulse Ox 97 01/05/24 05:30 O2 Del Method Nasal Cannula 01/05/24 02:30 O2 Flow Rate 4 01/05/24 02:30 01/04/24 01/05/24 01/05/24 22:59 06:59 14:59 Intake Total 600 / 1200 300 / 1500 Output Total 400 / 600 Balance 600 / 1000 -100 / 900 Weight last 48 hrs Weight 194 lb 9.6 oz Weight 175 lb Weight 175 lb Weight 175 lb Physical Exam 2 Narrative: GENERAL: Patient is alert, awake and oriented x3. [] NECK: No jugular vein distension. [] HEENT: No cyanosis. No icterus. No pallor. [] HEART: Regular S1 and S2. No murmur, rub or gallop. [] LUNGS: Clear to auscultate bilaterally. [] CENTRAL NERVOUS SYSTEM: Grossly nonfocal. [] EXTREMITIES: Lower extremities with 1+ edema bilaterally. Data 01/05/24 01:02 01/05/24 17:07 A&P Assessment and plan (1) Syncope: Qualifiers: Syncope type: unspecified Qualified Code(s): R55 - Syncope and collapse (2) Hypertension: Qualifiers: Hypertension type: primary hypertension Qualified Code(s): I10 - Essential (primary) hypertension (3) Coronary artery disease due to type 2 diabetes mellitus: (4) Intermittent atrial fibrillation: (5) Elevated troponin: Plan Patient had presented with syncopal episode and had troponin elevation. In the hospital last night he lost pulse and was shocked x 2. At least one of the rhythms was ventricular tachycardia. Initial rhythm possibly was narrow complex. Given his presentation, troponin elevation and ventricular tachycardia, we will proceed with coronary angigoram with possible PCI tomorrow. NPO past midnight Continue aspirin. ECHO ordered Keep holding eliquis. Thank you for involving us with care of this patient. We will continue to follow. Please call with questions. Consult Attestations 2 Medical Necessity Statement: Care expected to cross 2 midnights. 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
[2024-01-05 08:29] LABS: Troponin 5 6HR 50.16 ng/L (0-15)
[2024-01-05 08:30] LABS: Alanine Aminotransferase 144 U/L (0-41); Albumin Level 3.8 g/dL (3.5-5.2); Alkaline Phosphatase 137 U/L (40-130); Anion Gap 16.4 (5-19); Aspartate Amino Transferase 128 U/L (0-40); Blood Urea Nitrogen 24 mg/dL (8-23); Calcium 8.1 mg/dL (8.5-10.5); Carbon Dioxide 20 mmol/L (22-29); Chloride 104 mmol/L (98-107); Creatinine Clr Calc Pharmacy 66.4333; Globulin 2.4 g/dL (1.3-4.6); Glucose 311 mg/dL (65-115); Magnesium 1.9 mg/dL (1.7-2.3); Osmolality Calculated 296 mOsm/kg (285-295); Potassium 5.4 mmol/L (3.5-5.1); Sodium 135 mmol/L (136-145); Total Bilirubin 0.3 mg/dL (0.15-1.2); Total Protein 6.2 g/dL (6.6-8.7)
[2024-01-05] MEDS: insulin lispro 100 unit/1 mL SUBCUT ×4 (09:00→20:50)
[2024-01-05 09:18] LABS: Glucose Point of Care 310 mg/dL (70-110)
[2024-01-05 09:41] LABS: Troponin 5 6HR Delta 20.16 ng/L (0-12)
[2024-01-05] MEDS: amlodipine 10 mg Tablet PO (10:51)
[2024-01-05] MEDS: aspirin 325 mg Tablet PO (10:51)
[2024-01-05] MEDS: pantoprazole DR 40 mg Tablet PO (10:51)
[2024-01-05] MEDS: duloxetine 30 mg Capsule PO ×2 (10:51→17:56)
[2024-01-05] MEDS: metoprolol tartrate 25 mg Tablet PO ×2 (10:51→17:57)
[2024-01-05] MEDS: atorvastatin 40 mg Tablet PO (10:52)
[2024-01-05] MEDS: tamsulosin 0.4 mg Capsule 0.800000000000000044 MG PO (10:52)
[2024-01-05] MEDS: HYDROmorphone 1 mg/mL INJ 1 mL IVP ×4 (11:44→23:20)
[2024-01-05 11:56] LABS: Glucose Point of Care 200 mg/dL (70-110)
--- NOTE | 2024-01-05 12:58 | USCV_ITS ---
Chen Carson Age: 73 Gender: M : 1950 Exam Date: 01/04/2024 16:44 Ordering Phys: Tierney Sanchez MD Technologist: [place] [facility] [place]: cp stemi BP: 115 / 73 HR: 67 Rhythm: Sinus Technical Quality: Adequate MEASUREMENTS (Male / Female) Normal Values 2D ECHO LV Diastolic Diameter PLAX 5.4 cm 4.2 - 5.9 / 3.9 - 5.3 cm IVS Diastolic Thickness 1.1 cm 0.6 - 1.0 / 0.6 - 0.9 cm IVS Systolic Thickness 1.7 cm LVPW Diastolic Thickness 1.2 cm 0.6 - 1.0 / 0.6 - 0.9 cm LVPW Systolic Thickness 1.4 cm LVOT Diameter 2.0 cm LV Ejection Fraction 2D Teich 46.5 % LV Ejection Fraction MOD 2C 44.2 % LV Ejection Fraction 2C AL 46.4 % LA Diameter 3.5 cm RA Systolic Volume 4C AL 44.9 ml RA Systolic Volume 4C MOD 43.6 ml M-MODE LA Ao Ratio MM 1.1 AV Cusp Separation MM 1.8 cm DOPPLER AV Peak Velocity 153.0 cm/s LVOT Peak Velocity 76.0 cm/s AV Area Cont Eq vti 1.7 cm squared AV Area Cont Eq pk 1.6 cm squared MV Peak Velocity 97.0 cm/s MV Area PHT 3.6 cm squared Mitral E to A Ratio 1.4 TV Peak Velocity 218.0 cm/s TR Peak Velocity 257.0 cm/s TR Peak Gradient 26.4 mmHg TV Peak E Velocity 72.0 cm/s Right Atrial Pressure 3.0 mmHg Pulmonary Artery Systolic Pressu 29.4 mmHg PV Peak Velocity 104.0 cm/s FINDINGS Left Ventricle Left ventricle is normal in size. LV systolic function is mildly reduced with EF of 45-50%. Mild global hypokinesis seen. Right Ventricle Normal in size and function Right Atrium Normal in size Left Atrium Normal in size Mitral Valve Structurally normal mitral valve. Mild mitral regurgitation. Aortic Valve Aortic valve is thickened. No significant stenosis. Trace aortic regurgitation Tricuspid Valve Insufficient TR jet to calculate RVSP Pulmonic Valve Not well visualized Pericardium Normal Aorta Normal in size IVC Appears to be normal CONCLUSIONS LV systolic function is mildly reduced with EF of 45 to 50%. Mild mitral regurgitation. Trace aortic regurgitation Compared to prior echocardiogram from 2021, LV systolic function has decreased and is mildly reduced now. Juan Carlos Adame MD (Electronically Signed) Final Date: 05 Jan 2024 13:56 S
--- NOTE | 2024-01-05 14:23 | P.PN_ITS ---
Subjective 2 Subjective: overnight events noted see critical care progress note pt feels well this morning; Vitals/I&O/Wt Last Vital Signs Temp 97.9 F 01/05/24 02:30 Pulse 57 L 01/05/24 12:15 Resp 17 01/05/24 12:15 BP 135/83 01/05/24 12:15 Pulse Ox 97 01/05/24 12:15 O2 Del Method Nasal Cannula 01/05/24 12:15 O2 Flow Rate 2 01/05/24 12:15 01/04/24 01/05/24 01/05/24 22:59 06:59 14:59 Intake Total 600 / 1200 300 / 1500 120 / 120 Output Total 400 / 600 Balance 600 / 1000 -100 / 900 120 / 120 Weight last 48 hrs Weight 88.269 kg Weight 79.379 kg Weight 79.379 kg Weight 79.379 kg Physical Exam 2 Narrative: General: Patient is awake and alert. . Cardiovascular: RRR. No gallops. No murmurs. No peripheral edema. Lungs: Clear to auscultation, no use of accessory muscles, no crackles or wheezes. Abdomen: Normal bowel sounds, abdomen soft and nontender. Extremities: No cyanosis or clubbing. Musculoskeletal: 5/5 strength, normal range of motion Neurological: Moves all 4 extremities. Data 01/05/24 01:02 01/05/24 07:39 A&P Assessment and plan (1) Syncope: Patient with history of prior syncope and cardiac history Continuous telemetry monitoring for arrhythmia Monitor electrolytes Consider cardiology consult, may benefit from prolonged monitoring such as loop if inpt work up is unremarkable Qualifiers: Syncope type: unspecified Qualified Code(s): R55 - Syncope and collapse (2) Elevated troponin: Baseline troponin 24 with 2-hour repeat 35.8-4 delta of 11.82 Trend troponin Denying chest pains Telemetry monitoring EKG as needed for development of chest pain (3) Intermittent atrial fibrillation: Continue apixaban for stroke prophylaxis Continue metoprolol for rate control (4) Acidosis: Mild metabolic acidosis with bicarb of 20 Repeat labs in a.m. (5) Coronary artery disease due to type 2 diabetes mellitus: Continue high intensity statin Evaluating for ACS w/ serial troponin and telemetry (6) Hypertension: Continue losartan Continue Norvasc Continue metoprolol Qualifiers: Hypertension type: primary hypertension Qualified Code(s): I10 - Essential (primary) hypertension (7) Uncontrolled type 2 diabetes mellitus: Patient with continuous glucose monitor Last A1c 9.2 on 12/17/2023 Plan to continue formulary equivalent of home insulin Plan DVT prophylaxis: Apixaban CODE STATUS: Full code #Todays plan 01/04/ - Pulseless Vtach s/p cpr s/p rosc - Continue on amiodarone gtt - Cardio consulted - Plan for cath in am - npo at midnight - family updated at bedside - K 5.4 this Am - will repeat BMP Attestations 2 Medical Necessity Statement*: Patient presents with syncope with history of coronary disease, atrial fibrillation, and prior syncope, found to have elevated troponin with expected hospitalization not to cross 2 midnights for serial cardiac enzymes and telemetry monitoring. Diagnoses Syncope R55 Syncope type: unspecified Elevated troponin R79.89 Intermittent atrial fibrillation I48.0 Acidosis E87.2 Coronary artery disease due to type 2 diabetes mellitus E11.59; I25.10 Primary hypertension I10 Hypertension type: primary hypertension Uncontrolled type 2 diabetes mellitus E11.65
[2024-01-05 17:46] LABS: Anion Gap 15.5 (5-19); Blood Urea Nitrogen 23 mg/dL (8-23); Calcium 8.4 mg/dL (8.5-10.5); Carbon Dioxide 22 mmol/L (22-29); Chloride 104 mmol/L (98-107); Creatinine Clr Calc Pharmacy 60.3939; Glucose 216 mg/dL (65-115); Osmolality Calculated 294 mOsm/kg (285-295); Potassium 4.5 mmol/L (3.5-5.1); Sodium 137 mmol/L (136-145)
[2024-01-05 19:52] LABS: Glucose Point of Care 225 mg/dL (70-110)
[2024-01-05 20:44] LABS: Glucose Point of Care 238 mg/dL (70-110)
[2024-01-06] VITALS (51 sets, daily range): BP systolic 132–176; BP diastolic 70–111; PULSE 55–95; RESP 9–23; TEMP 36.6–37.4; O2SAT 90–98; BMI 31.4; BMI 30.3
[2024-01-06] MEDS: HYDROmorphone 1 mg/mL INJ 1 mL IVP ×5 (03:21→22:10)
[2024-01-06] MEDS: sodium chloride 0.9% 1,000 ML 50 ML IV (05:33)
--- NOTE | 2024-01-06 07:44 | XACV_ITS ---
Exam Room: 2 Ht: 168 cm Wt: 85 kg BSA: 2.01 m2 Gender: Male : 1950 Any Known Allergies: Other Exam Priority: Routine Procedure(s): Procedure Description: Diagnostic procedure Procedure Description: PCI procedure Procedure Description: Coronary IVUS Procedure Description: Drug Eluting Coronary Stent Procedure Description: PTCA Procedure Description: Miscellaneous Procedure Description: ACT Procedure Description: Coronary Angiography Procedure Description: Pressure Wire Diagnostic Cath Status: Urgent Diagnostic Findings * INDICATION: Ventricular tachycardia/syncope/troponin elevation. * Left Main has mild luminal irregularities. * Circumflex has mild luminal irregularities. * Proximal to mid LAD has * diffuse moderate to severe * 60 to 70% disease.. * Proximal Right Coronary Artery: Chronic total occlusion, JOCELIN: 0 flow. Receives collaterals from left system. * Mid Left Anterior Descending: obstructive 70% stenosis, JOCELIN: 3 flow. * Coronary angiography shows right dominance. PCI Status: Urgent Interventional Findings * PROCEDURE DETAIL: We engaged left main artery with XB 3.5 guide catheter. IV heparin was administered to maintain anticoagulation. After normalization, IFR wire was advanced into distal LAD. iFR value of 0.66 was obtained that was significantly abnormal. we proceeded with PCI. We first performed IVUS to size the vessel. We then predilated the stenosis with 2.5 x 30 mm semicompliant balloon. This was followed by placement of 2.5 x 30 mm resolute Natalia drug-eluting stent in mid LAD. This was followed with placement of 3.0 x 38 mm resolute [place] drug-eluting stent in the proximal vessel overlapping with the first stent. IVUS was again performed which showed good expansion of stents. We postdilated the stents with 3.0 x 15 mm NC balloon at high pressure. At this time final angiogram was performed that showed excellent stent expansion, no residual stenosis and JOCELIN-3 flow. Guidewire and guide catheter were removed. Patient left the Float Remover in a stable condition.. * Proximal Left Anterior Descendin% stenosis treated with a AB TREK 2.50X30 RX BALLOON, MDT R NATALIA 3.0X38 DENNY, and MDT NC EUPHORA RX [id number] BALLOON. 0% residual stenosis, JOCELIN: 3 flow. * Mid Left Anterior Descendin% stenosis treated with a MDT R NATALIA 2.5X30 DENNY, and MDT NC EUPHORA RX [id number] BALLOON. 0% residual stenosis, JOCELIN: 3 flow. Conclusions 1. Severe proximal to mid LAD stenosis s/p successful revascularization with 2 stents. SMALL OFFSET PRINTER of RCA. Medical therapy.. 2. Proximal Left Anterior Descending was treated with a Balloon, Drug Eluting Stent, and Balloon. 3. Mid Left Anterior Descending was treated with a Drug Eluting Stent, and Balloon. Recommendations * Patient will benefit from defibrillator given documented Ventricular tachcyardia and syncope and happened not in a acute NC situation. As narrow complex tachycardia was seen prior to VT, can consider EP study. Transfer to center with EP availability will be reasonable. * Dual antiplatelet therapy with aspirin and plavix for atleast 1 year. * High intensity statin therapy. * Outpatient cardiology follow up in 4 weeks. Interventional RX Recommendation: PCI w/o planned CABG Diagnostic RX Recommendation: PCI w/o planned CABG Anticoagulation: Heparin Pressures Phase:Rest AO : / ( -7 ) @ 11:48:00 AM 115 / 67 ( 88 ) @ 12:23:00 PM 128 / 74 ( 99 ) @ 12:39:00 PM 165 / 66 ( 98 ) @ 12:47:00 PM 149 / 68 ( 97 ) @ 1:07:00 PM 113 / 71 ( 89 ) @ 1:14:00 PM 107 / 49 ( 72 ) @ 1:19:00 PM Clinical Evaluation EBL: 5mL-10mL Procedural Details Procedure Consent Obtained. Pre-Procedure Time Out. Identified patient by full name and date of as verbalized by the patient/guarantor. Does the consent match the physician's order: Yes. Accurate & Complete Informed Consent: Yes. Inpatient/Outpatient History & Physical on Chart: Yes. If H&P is completed, is and addenduem needed: No. Visualize and Verify Site with Patient/Guarantor: N/A. Relevant Radiology Images available: Yes. The risks, benefits, and alternatives of sedation and/or procedure were discussed by physician. The patient agrees to continue. Procedure started. [facility] Clinical Fraility Score: 4: Vulnerable. Float Remover Indications: Cardiac Arrhythmia/elevated troponin. Chest Pain Symptom Assessment: Atypical Angina. Cardiovascular Instability: No. Correct patient, site and procedure confirmed by cath team. PERRLA. Strong, equal hand parts picker bilaterally. Lungs clear x 5 lobes. IV Site on Arrival: 20 gauge in the left wrist. IV Fluids: 0.9% NaCl at KVO. 100 mL infused prior to pathology laboratory aides teacher. Pre Procedural Pulses: bilateral dorsalis pedis was 3+. Pre Procedural Pulses: bilateral posterior tibial was 3+. Pre Procedural Pulses: bilateral radial was 3+. Oxygen started at 2liters/min via nasal canula. right groin was prepped with chloroprep then draped in the usual sterile fashion. right radial was prepped with chloroprep then draped in the usual sterile fashion. Physician notified. Baseline sample Acquired. HR: 114 BPM. Patient's family in the pathology laboratory aides teacher waiting room. Dr. Adame will update at the completion of the proceudre. Equipment: 6F - Radial. Cardiac Cath Pack. ACIST Manifold Kit Model BT 2000. Heparinized Saline (2 units/mL), 1000 mL bag. Physician arrived. Physician scrubbed in. Immediate Pre-Procedure Time Out. Correct Patient: Yes; Correct Procedure: Yes; Correct Site: Yes; Correct Patient Position: Yes; Correct Supplies: Yes; Dried Flammable Prep: Yes; Blood Products Available: N/A;. Lidocaine 1% infiltrated to the right radial. Arterial access obtained. A 5 djiboutian TIG catheter in over the exchange J wire. Exchange J wire out. 0.035 x 260 stiff angled glidewire in. Unable to advance glidewire, out. Aborting radial access, will move to femerol. Lidocaine 1% infiltrated to the right groin. A TR Band was successful obtaining hemostatsis at the Right Radial artery insertion site. Arterial access obtained with micropuncture set. A 5 djiboutian JL4 catheter in over standard J wire. Multiple views taken of left coronary artery. Catheter removed over the standard J wire. A 5 djiboutian JR4 catheter in over the standard J wire. Cineography of the RCA performed. Catheter removed over the standard J wire. 6 djiboutian XB 3.5 guide catheter was inserted over the standard J wire. Guide catheter out. 6 djiboutian XB 3 guide catheter was inserted over the standard J wire. FFR guidewire was advanced through the guide catheter to lesion in the mid LAD. iFR spot of the Mid LAD = 0.66 with a pulback of 0.63. iFR wire out. Runthrough guidewire was advanced through the guide catheter to lesion in the mid LAD. IVUS catheter was advanced through the guide catheter to lesion in the mid LAD. IVUS run performed. IVUS catheter out. Dr. Adame scrubbed out to review IVUS images and consult with Dr. Zhou. Dr. Adame scrubbed back in to begin intervention. ACT drawn. Results 220 seconds. Therapeutic limits - pre-heparin administration 90-150 seconds and monitoring heparin during a vascular procedure >250 seconds. Inflation number : 1 A AB TREK 2.50X30 RX BALLOON was prepped and advanced across the Prox LAD , then inflated to 8 TERENCE for 0:18 seconds. Inflation number: 2 The AB TREK 2.50X30 RX BALLOON was reinflated across the Prox LAD, to 8 TERENCE for 0:13 seconds. Inflation number: 3 The AB TREK 2.50X30 RX BALLOON was reinflated across the Prox LAD, to 10 TERENCE for 0:22 seconds. Balloon out. Inflation Number : 1 Krish Fox NATALIA 2.5X30 DENNY -Lot Number# _[id number] EXP: 07/27/2026 was prepped and advanced across the Mid LAD. The stent was deployed at 12 TERENCE for 0:19 seconds. Stent balloon out over wire. Inflation Number : 4 A MDT R NATALIA 3.0X38 DENNY -Lot Number# _[id number] EXP: 03/14/2026 was prepped and advanced across the Prox LAD. The stent was deployed at 12 TERENCE for 0:31 seconds. Stent balloon out over wire. Results checked. Inflation number : 2 A MDT NC EUPHORA RX [id number] BALLOON was prepped and advanced across the Mid LAD , then inflated to 14 TERENCE for 0:25 seconds. Inflation number: 6 The MDT NC EUPHORA RX [id number] BALLOON was reinflated across the Prox LAD, to 14 TERENCE for 0:17 seconds. Inflation number: 7 The MDT NC EUPHORA RX [id number] BALLOON was reinflated across the Prox LAD, to 16 TERENCE for 0:13 seconds. Inflation number: 8 The MDT NC EUPHORA RX 3.73E35OX BALLOON was reinflated across the Prox LAD, to 18 TERENCE for 0:11 seconds. Inflation number: 9 The MDT NC EUPHORA RX [id number] BALLOON was reinflated across the Prox LAD, to 22 TERENCE for 0:17 seconds. Inflation number: 10 The MDT NC EUPHORA RX 3.26S28MH BALLOON was reinflated across the Prox LAD, to 18 TERENCE for 0:09 seconds. Balloon out. IVUS catheter was advanced through the guide catheter to lesion in the mid LAD. IVUS measurements obtained. IVUS catheter out OTW. Results checked. Wire out. ACT drawn. Results 302 seconds. Therapeutic limits - pre-heparin administration 90-150 seconds and monitoring heparin during a vascular procedure >250 seconds. Guide catheter out. A Right femoral angiogram was performed to determine safe placement of closure device. A Suture was successful obtaining hemostatsis at the Right Femoral artery insertion site. Arterial sheath flushed and connected to tranducer and pressure bag with heparinized saline. Post Procedure: Pulses reassessed and unchanged. PERRLA. Strong, equal hand parts picker bilaterally. No VTE prophylaxis required. Medication's Wasted: Other = Versed 1 mg. Medication's Wasted: Other = Fentanyl 100 mcg. Medication's Wasted: Lidocaine 1% = 11 mL. Medication's Wasted: Nitro = 49.8 mg. Medication's Wasted: Heparin = 1000 units. Total IV fluids: 300 mL. Post-op diagnosis: Severe stenosis of the mid-distal LAD s/p stenting x 2. Complications: none. Estimated blood loss: 5mL-10mL. Responsiveness - Normal response to verbal stimuli; alert and oriented, PERRLA. Airway - Unaffected, no intervention required; spontaneous ventilation. Circulation: W/N/L, pulses unchanged. Nausea/Vomiting: No. Cordarone gtt infusing at 0.5mg/min on arrival to the pathology laboratory aides teacher. Procedure completed. Patient transferred by bed to ICU. Vital chart was stopped. Access Site Site: Right Radial artery Sheath Size: 6 Fr Hemostasis Method: TR Band Hemostasis Success: Successful Site: Right Femoral artery Sheath Size: 6 Fr Hemostasis Method: Suture Hemostasis Success: Successful Procedure Medications Start: 11:00 AM Stop: 11:00 AM Medication: Versed Amount: 1 mg Route: I.V. Start: 11:07 AM Stop: 11:07 AM Medication: Nitrogylcerin Amount: 200 mcg Route: I.A. Start: 11:31 AM Stop: 11:31 AM Medication: Heparin Amount: 7000 units Route: I.V. Start: 11:49 AM Stop: 11:49 AM Medication: Heparin Amount: 1000 units Route: I.V. Start: 12:03 PM Stop: 12:03 PM Medication: Heparin Amount: 3000 units Route: I.V. Start: 12:17 PM Stop: 12:17 PM Medication: Nitrogylcerin Amount: 200 mcg Route: I.A. Start: 12:18 PM Stop: 12:18 PM Medication: Heparin Amount: 1000 units Route: I.V. Start: 12:37 PM Stop: 12:37 PM Medication: Plavix Amount: 600 mg Route: P.O. Start: 12:37 PM Stop: 12:37 PM Medication: Aspirin Amount: 325 mg Route: P.O. Start: 12:37 PM Stop: 12:37 PM Medication: Aggrastat 12.5 mg/250 mL Amount: 42 ml Route: I.V. bolus Start: 12:37 PM Stop: 12:37 PM Medication: Aggrastat 12.5 mg/250 mL Amount: 15.1 ml/hr Route: I.V. bolus I, the attending physician, have reviewed and verified all procedure medications. Yes, all medications given per verbal order History/Risk Factors Hypertension: Yes Dyslipidemia: Yes Peripheral Arterial Disease (PAD): No Myocardial Infarction (NC): No Obesity: No Renal Disease: No Tobacco Use: Never Prior Interventions PCI: Yes CABG: No Valve Surgery: No Report Signatures Finalized by Juan Carlos Adame MD on 01/11/2024 01:51 PM
[2024-01-06] MEDS: duloxetine 30 mg Capsule PO ×2 (08:29→17:50)
[2024-01-06] MEDS: pantoprazole DR 40 mg Tablet PO (08:29)
[2024-01-06] MEDS: metoprolol tartrate 25 mg Tablet PO ×2 (08:30→17:50)
[2024-01-06] MEDS: amlodipine 10 mg Tablet PO (08:30)
--- NOTE | 2024-01-06 08:37 | P.PN_ITS ---
Documented by User: MEGHANN Hayward STDLOVE 01/06/24 09:32 Subjective 2 Subjective: Mr. Carson this morning was resting comfortably in bed, he reports having significant discomfort in his chest, he cannot take a deep breath or cough. He understands his relative to his recent code and chest compressions. He understands the plan today is to go to the [facility]. He does not have any other concerns today. Nursing reports no acute events overnight. Medications: Reviewed: Yes Vitals/I&O/Wt Last Vital Signs Temp 98.5 F 01/06/24 08:00 Pulse 63 01/06/24 08:00 Resp 18 01/06/24 08:23 BP 165/104 01/06/24 08:00 Pulse Ox 95 01/06/24 08:00 O2 Del Method Nasal Cannula 01/06/24 08:00 O2 Flow Rate 2 01/06/24 08:00 01/05/24 01/06/24 01/06/24 22:59 06:59 14:59 Intake Total 680 / 800 0 / 800 200 / 200 Balance 680 / 800 0 / 800 200 / 200 Weight last 48 hrs Weight 187 lb 12.8 oz Weight 194 lb 9.6 oz Weight 194 lb 9.6 oz Physical Exam 2 Narrative: General: Comfortable appearing male, resting in bed, conversing appropriately, speech normal, alert and oriented. HEENT: Head atraumatic, normocephalic to visual infection, PERRL, neck supple thyromegaly noted. CV: Normal rate and rhythm, S1-S2 noted, no murmurs of the gallops noted. Palpation reveals mild chest pain around sternum. Pulm: Lungs clear to auscultation bilaterally. GI: Abdomen soft, nontender, bowel sounds present all quadrants. Extremities: Capillary<2 seconds, bilateral pulses equal in upper and lower extremities. All extremities otherwise normal, no edema noted. Data 01/05/24 01:02 01/05/24 17:07 Other Labs: ABG: pH 7.39, pCO2 30.8, pO2 94.9, HCO3 18.6. AST, ALT, alk phos: 128, 144, 137 respectively. Troponin T baseline: 30 Troponin T 120: 35.8 Troponin T 6-hour: 50.16 Micro: Microbiology 06/18/22 17:42 Blood Culture - Preliminary Blood SPECIMEN COLLECTED 06/18/22 17:42 Blood Culture - Preliminary Blood SPECIMEN COLLECTED A&P Assessment and plan (1) Syncope: Patient with history of prior syncope and cardiac history Continuous telemetry monitoring for arrhythmia Monitor electrolytes Consider cardiology consult, may benefit from prolonged monitoring such as loop if inpt work up is unremarkable. Cardiology consult, appreciated, patient will be taken to [facility] today. Qualifiers: Syncope type: unspecified Qualified Code(s): R55 - Syncope and collapse (2) Elevated troponin: Baseline troponin 24 with 2-hour repeat 35.8-4 delta of 11.82 Trend troponin Denying chest pains Telemetry monitoring EKG as needed for development of chest pain (3) Intermittent atrial fibrillation: Continue apixaban for stroke prophylaxis Continue metoprolol for rate control (4) Acidosis: Mild metabolic acidosis with bicarb of 20 Repeat labs in a.m. (5) Coronary artery disease due to type 2 diabetes mellitus: Continue high intensity statin Evaluating for ACS w/ serial troponin and telemetry (6) Hypertension: Continue losartan Continue Norvasc Continue metoprolol Qualifiers: Hypertension type: primary hypertension Qualified Code(s): I10 - Essential (primary) hypertension (7) Uncontrolled type 2 diabetes mellitus: Patient with continuous glucose monitor Last A1c 9.2 on 12/17/2023 Plan to continue formulary equivalent of home insulin Plan DVT prophylaxis: Apixaban CODE STATUS: Full code #Todays plan 01/05/24 - Pulseless Vtach s/p cpr s/p rosc - Continue on amiodarone gtt - Cardio consulted, appreciate ago they will be taken to [facility] today. - npo at midnight - family updated at bedside - K 5.4 this Am -Repeat BMP shows normal potassium?4.5. Coding Level of Care Code [id number] Diagnoses Syncope R55 Syncope type: unspecified Elevated troponin R79.89 Intermittent atrial fibrillation I48.0 Acidosis E87.2 Coronary artery disease due to type 2 diabetes mellitus E11.59; I25.10 Primary hypertension I10 Hypertension type: primary hypertension Uncontrolled type 2 diabetes mellitus E11.65 Documented by User: Tierney Sanchez MD 01/06/24 11:31 Subjective 2 Subjective: Mr. Carson this morning was resting comfortably in bed, he reports having significant discomfort in his chest, he cannot take a deep breath or cough. He understands his relative to his recent code and chest compressions. He understands the plan today is to go to the [facility]. He does not have any other concerns today. Nursing reports no acute events overnight. Data 01/05/24 01:02 01/05/24 17:07 A&P Assessment and plan (1) Syncope: Patient with history of prior syncope and cardiac history Continuous telemetry monitoring for arrhythmia Monitor electrolytes Cardiology consult, appreciated, patient will be taken to [facility] today. Qualifiers: Syncope type: unspecified Qualified Code(s): R55 - Syncope and collapse (2) Elevated troponin: (3) Intermittent atrial fibrillation: (4) Acidosis: (5) Coronary artery disease due to type 2 diabetes mellitus: (6) Hypertension: Qualifiers: Hypertension type: primary hypertension Qualified Code(s): I10 - Essential (primary) hypertension (7) Uncontrolled type 2 diabetes mellitus: Plan DVT prophylaxis: Apixaban CODE STATUS: Full code #Todays plan 01/06/24 - Pulseless Vtach s/p cpr s/p rosc - Continue on amiodarone gtt - Cardio consulted, appreciate ago they will be taken to [facility] today. - npo at midnight - family updated at bedside - K 5.4 this Am -Repeat BMP shows normal potassium?4.5. Attestations 2 Medical Necessity Statement*: Patient presents with syncope with history of coronary disease, atrial fibrillation, and prior syncope, found to have elevated troponin with expected hospitalization not to cross 2 midnights for serial cardiac enzymes and telemetry monitoring. Diagnoses Syncope R55 Syncope type: unspecified Elevated troponin R79.89 Intermittent atrial fibrillation I48.0 Acidosis E87.2 Coronary artery disease due to type 2 diabetes mellitus E11.59; I25.10 Primary hypertension I10 Hypertension type: primary hypertension Uncontrolled type 2 diabetes mellitus E11.65
[2024-01-06 08:51] LABS: Glucose Point of Care 317 mg/dL (70-110)
[2024-01-06] MEDS: insulin lispro 100 unit/1 mL SUBCUT ×4 (08:54→20:56)
[2024-01-06] MEDS: diphenhydrAMINE 50 mg Capsule PO (09:18)
--- NOTE | 2024-01-06 09:59 | P.PN_ITS ---
Subjective 2 Subjective: The events of the weekend are noted patient admitted to hospital with episodes of syncope. He apparently developed pulseless V. tach while being in the hospital. He was brought down to the ICU for further evaluation management. Currently he denies any chest pain or chest tightness. No fever, chills or cough. Medications: Medication Review Details: Current Medications Albuterol Sulfate (Albuterol 2.5 Mg/3 Ml Neb) 2.5 mg INHALATION QID.RESPIRATORY PRN PRN Reason: shortness of breath or wheezing Amlodipine Besylate (Amlodipine 10 Mg Tablet) 10 mg PO DAILY [facility] Last Admin: 01/06/24 08:30 Dose: 10 mg Aspirin (Aspirin 325 Mg Tablet) 325 mg PO DAILY [facility] Last Admin: 01/06/24 08:48 Dose: Not Given Atorvastatin Calcium (Atorvastatin 40 Mg Tablet) 40 mg PO DAILY [facility] Last Admin: 01/06/24 08:48 Dose: Not Given Duloxetine HCl (Duloxetine 30 Mg Capsule) 30 mg PO BID [facility] Last Admin: 01/06/24 08:29 Dose: 30 mg Hydromorphone HCl (Hydromorphone 1 Mg/Ml Inj 1 Ml) 1 mg IVP Q3H PRN PRN Reason: MODERATE TO SEVERE PAIN Last Admin: 01/06/24 08:23 Dose: 1 mg Dextrose (D5w) 500 mls @ 0 mls/hr IV ONCE PRN; Protocol PRN Reason: Adult Acute Hypoglycemia Prot Dextrose (D10w) 125 mls @ 750 mls/hr IV PRN PRN; Protocol PRN Reason: Adult Acute Hypoglycemia Nursing Protocol Dextrose (D10w) 250 mls @ 1,000 mls/hr IV PRN PRN; Protocol PRN Reason: Adult Acute Hypoglycemia Nursing Protocol Amiodarone HCl/Dextrose (Nexterone) 360 mg in 200 mls @ 0 mls/hr IV .Q0M [facility]; Protocol Last Admin: 01/06/24 07:55 Dose: 0.5 mg/min, 16.67 mls/hr Sodium Chloride (Sodium Chloride 0.9%) 1,000 mls @ 50 mls/hr IV .Q20H ONE Stop: 01/07/24 01:59 Last Admin: 01/06/24 05:33 Dose: 50 mls/hr Insulin Human Lispro (Insulin Lispro 100 Unit/1 Ml) 0 unit SUBCUT WM&BEDTIME [facility]; Protocol Last Admin: 01/06/24 08:54 Dose: 12 unit Metoprolol Tartrate (Metoprolol Tartrate 25 Mg Tablet) 25 mg PO BID [facility] Last Admin: 01/06/24 08:30 Dose: 25 mg Ondansetron HCl (Ondansetron 2 Mg/Ml Sdv 2 Ml) 4 mg IVP Q8H PRN PRN Reason: vomiting, or N/V if npo Ondansetron HCl (Ondansetron 4 Mg Tablet) 4 mg PO Q8H PRN PRN Reason: NAUSEA Pantoprazole Sodium (Pantoprazole Dr 40 Mg Tablet) 40 mg PO DAILY [facility] Last Admin: 01/06/24 08:29 Dose: 40 mg Tamsulosin HCl (Tamsulosin 0.4 Mg Capsule) 0.8 mg PO DAILY [facility] Last Admin: 01/06/24 08:48 Dose: Not Given Vitals/I&O/Wt Last Vital Signs Temp 98.5 F 01/06/24 08:00 Pulse 64 01/06/24 09:56 Resp 16 01/06/24 09:56 BP 165/104 01/06/24 08:00 Pulse Ox 96 01/06/24 09:56 O2 Del Method Nasal Cannula 01/06/24 09:56 O2 Flow Rate 2 01/06/24 09:56 01/05/24 01/06/24 01/06/24 22:59 06:59 14:59 Intake Total 680 / 800 0 / 800 200 / 200 Balance 680 / 800 0 / 800 200 / 200 Weight last 48 hrs Weight 187 lb 12.8 oz Weight 194 lb 9.6 oz Weight 194 lb 9.6 oz Physical Exam 2 Narrative: GENERAL: The patient is alert and oriented times three. Not in any acute distress. HEENT: No significant pallor, icterus or lymphadenopathy.Oral cavity: There are no mucous membrane lesions. NECK: Trachea appears to be central. No masses noted. No JVD or thyromegaly appreciated. RESPIRATORY: Chest is symmetrical. No intercostals muscle retraction or any accessory muscle activation. There is no chest wall tenderness. Breath sounds are heard bilaterally. No rales or rhonchi heard. No evidence of any consolidation. BREASTS: Deferred. HEART: The heart sounds are normal. No S3 or S4. No significant murmurs. No pericardial rub ABDOMEN: No vessel pulsations or distention. No tenderness. No organomegaly appreciated. Bowel sounds are normally heard. : Deferred. RECTAL: Deferred. LYMPHATIC: No lymphadenopathy noted in the neck. EXTREMITIES: No edema or cyanosis. No clubbing. MUSCULOSKELETAL: No acute joint deformities or swelling SKIN: There are no significant rashes or ecchymosis NEUROPSYCHIATRIC: The patient is alert and oriented x3. Appears to be in a good mood. No tremors or rigidity noted. Data 01/05/24 01:02 01/05/24 17:07 Other Labs: Laboratory Last Values WBC 13.79 10^3/uL (3.29-11.43) H 01/05/24 01:02 RBC 4.88 10^6/uL (3.85-5.65) 01/05/24 01:02 Hgb 14.20 g/dL (11.27-16.99) 01/05/24 01:02 Hct 40.3 % (37-53) 01/05/24 01:02 MCV 82.6 fl (82-101) 01/05/24 01:02 MCH 29.1 pg (27-33) 01/05/24 01:02 MCHC 35.2 g/dL (30-55) 01/05/24 01:02 RDW 13.5 % (12.1-15.1) 01/05/24 01:02 Plt Count 297 10^3/cmm (157-399) D 01/05/24 01:02 MPV 9.8 fL (7.4-10.4) 01/05/24 01:02 Neut % (Auto) 46.2 % 01/05/24 01:02 Lymph % (Auto) 44.9 % 01/05/24 01:02 [place] % (Auto) 5.4 % 01/05/24 01:02 Eos % (Auto) 2.2 % 01/05/24 01:02 Baso % (Auto) 0.3 % 01/05/24 01:02 Neut # (Auto) 6.38 10^3/uL (1.8-7.7) 01/05/24 01:02 Lymph # (Auto) 6.2 10^3/uL (0.8-4.8) H 01/05/24 01:02 [place] # (Auto) 0.7 10^3/uL (0.2-0.9) 01/05/24 01:02 Eos # (Auto) 0.3 10^3/uL (0.0-0.8) 01/05/24 01:02 Baso # (Auto) 0.0 10^3/uL (0.0-0.1) 01/05/24 01:02 Nucleated RBC % (auto) 0 % 01/05/24 01:02 Nucleated RBCs # 0.0 /100WBC 01/05/24 01:02 PT 13.10 SECONDS (12.1-14.9) 01/03/24 23:10 INR 0.96 (0.8-1.2) 01/03/24 23:10 Specimen Type Arterial 01/05/24 00:50 Sample Site Radial, right 01/05/24 00:50 ABG pH 7.39 (7.35-7.45) 01/05/24 00:50 ABG pCO2 30.8 mmHg (35-45) L 01/05/24 00:50 ABG pO2 94.9 mmHg (80.0-100.0) 01/05/24 00:50 ABG PO2/FiO2 Ratio 0 01/05/24 00:50 ABG HCO3 18.6 mmol/L (22-26) L 01/05/24 00:50 ABG O2 Saturation 95.9 01/05/24 00:50 ABG Base Excess -5.2 mmol/L (-2.0-2.0) L 01/05/24 00:50 Reza Test Pos 01/05/24 00:50 A-a O2 Gradient 15.8 mmHg (5-10) H 01/05/24 00:50 Hematocrit 42.8 % (42-52) 01/05/24 00:50 Hgb O2 Saturation 95.8 % (95-100) 01/05/24 00:50 Carboxyhemoglobin < 0.0 %THgb (0.4-20.1) L 01/05/24 00:50 Methemoglobin 0.3 % (0.4-1.5) L 01/05/24 00:50 Total Hemoglobin 14.0 g/dL (14-18) 01/05/24 00:50 Sodium 142.0 mmol/L (131-143) 01/05/24 00:50 Potassium 3.1 mmol/L (3.5-5.0) L 01/05/24 00:50 Glucose 337.0 mg/dL (70-115) H 01/05/24 00:50 Ionized Calcium 1.2 mmol/L (1.1-1.4) 01/05/24 00:50 O2 Delivery Device Nc 01/05/24 00:50 O2 Liters/Min 4.0 % 01/05/24 00:50 FiO2 36.0 % 01/05/24 00:50 Chronometer Repairer ID [email or web address] 01/05/24 00:50 Sodium 137 mmol/L (136-145) 01/05/24 17:07 Potassium 4.5 mmol/L (3.5-5.1) 01/05/24 17:07 Chloride 104 mmol/L (98-107) 01/05/24 17:07 Carbon Dioxide 22 mmol/L (22-29) 01/05/24 17:07 Anion Gap 15.5 (5-19) 01/05/24 17:07 BUN 23 mg/dL (8-23) 01/05/24 17:07 Creatinine 1.1 mg/dL (0.7-1.2) 01/05/24 17:07 GFR Calculation Not Reportable 01/05/24 17:07 Glucose 216 mg/dL (65-115) H 01/05/24 17:07 POC Glucose 317 mg/dL (70-110) H 01/06/24 08:28 Calculated Osmolality 294 mOsm/kg (285-295) 01/05/24 17:07 Calcium 8.4 mg/dL (8.5-10.5) L 01/05/24 17:07 Magnesium 1.9 mg/dL (1.7-2.3) 01/05/24 07:39 Total Bilirubin 0.3 mg/dL (0.15-1.2) 01/05/24 07:39 AST 128 U/L (0-40) H 01/05/24 07:39 ALT 144 U/L (0-41) H 01/05/24 07:39 Alkaline Phosphatase 137 U/L (40-130) H 01/05/24 07:39 Troponin T Baseline 30 ng/L (0-15) H 01/05/24 01:02 Troponin T 120 Minute Cancelled 01/05/24 07:39 Delta Troponin T Cancelled 01/05/24 07:39 Troponin T Hi Sens 6Hr 50.16 ng/L (0-15) H 01/05/24 07:39 Troponin T Hi Sens 6Hr Delta 20.16 ng/L (0-12) H* 01/05/24 07:39 Total Protein 6.2 g/dL (6.6-8.7) L 01/05/24 07:39 Albumin 3.8 g/dL (3.5-5.2) 01/05/24 07:39 Globulin 2.4 g/dL (1.3-4.6) 01/05/24 07:39 Urine Color Yellow (Yellow) 01/04/24 02:05 Urine Appearance Clear (CLEAR) 01/04/24 02:05 Urine pH 5 (5-7) 01/04/24 02:05 Ur Specific [place] 1.015 (1.005-1.030) 01/04/24 02:05 Urine Protein 1+ (Negative) H 01/04/24 02:05 Urine Glucose (UA) 2+ (Normal) H 01/04/24 02:05 Urine Ketones 1+ (Negative) H 01/04/24 02:05 Urine Blood Neg (Negative) 01/04/24 02:05 Urine Nitrate Negative (Negative) 01/04/24 02:05 Urine Bilirubin Neg (Negative) 01/04/24 02:05 Urine Urobilinogen Neg mg/dL (Negative) 01/04/24 02:05 Ur Leukocyte Esterase Negative (Negative) 01/04/24 02:05 Urine RBC 0-4 /hpf (0-2) H 01/04/24 02:05 Urine WBC 0-4 /hpf (0-5) H 01/04/24 02:05 Ur Squamous Epith Cells 0-4 /hpf (0-5) H 01/04/24 02:05 Amorphous Sediment Not Reportable 01/04/24 02:05 Urine Bacteria Trace /hpf (NONE) 01/04/24 02:05 Urine Mucus Trace /hpf 01/04/24 02:05 A&P Assessment and plan (1) Ventricular tachycardia: The etiology is not clear. Ischemia causing ventricular arrhythmia is a consideration. Currently I do not have the rhythm strip available. After reviewing the rhythm strip, further recommendations will be made (2) Atherosclerosis of coronary artery of [place] heart without angina pectoris: Patient requested repeat cardiac catheterization to reevaluate the coronary arteries. This was discussed in detail with the patient and his family which they understood well and consented to proceed. Qualifiers: Coronary Disease-Associated Artery/Lesion type: [place] artery Qualified Code(s): I25.10 - Atherosclerotic heart disease of [place] coronary artery without angina pectoris (3) Intermittent atrial fibrillation: Patient is currently off the oral anticoagulation. He is in sinus rhythm at this point. (4) Elevated troponin: Most likely the patient had a non-ST elevation CA. May continue on the current management. (5) Recurrent syncope: Possibly related to the V. tach. Based on the patient's clinical progress and the results of the above, further management decisions will be made. Plan Cardiac catheterization today. The risk of bleeding, hematoma, vascular injury, myocardial infarction, myocardial perforation, malignant cardiac arrhythmias ,CVA, renal failure and other concomitant complications were explained in detail. Patient understood this well and consented to proceed Attestations 2 Medical Necessity Statement*: Patient requires continued hospital stay for close monitoring and further management Coding Level of Care Code 72016 Diagnoses Ventricular tachycardia I47.20 Atherosclerosis of [place] coronary artery of [place] heart without angina pectoris I25.10 Coronary Disease-Associated Artery/Lesion type: [place] artery Intermittent atrial fibrillation I48.0 Elevated troponin R79.89 Recurrent syncope R55
--- NOTE | 2024-01-06 10:42 | W.PM.OPSUD ---
Surgery/Procedure H&P Update DATE OF PROCEDURE: January 06, 2024 DATE H&P PERFORMED: 01/05/24 H&P UPDATE INFORMATION: I have reviewed H&P completed within last 30 days, I have examined patient prior to procedure and No changes to prior documentation PREOP DIAGNOSIS: Ventricular tachycardia/syncope/troponin elevation PRIMARY INDICATION FOR PROCEDURE: Ventricular tachycardia/syncope/troponin elevation PLANNED PROCEDURE: Left heart cath with possible percutneous coronary intervention PATIENT REASSESSED PRIOR TO SEDATION, WITH NO CHANGE NOTED: Yes PHYSICAL EXAM: alert, oriented x 3, clear to auscultation bilaterally and regular rate & rhythm AIRWAY EVAL/ANESTHESIA PLAN: normal airway, ASA III, Local Anesthesia, Risks, benefits & alternatives of sedation and/or procedure discussed and Patient agrees to continue as planned ADDITIONAL INFORMATION: Moderate sedation
[2024-01-06 13:18] LABS: Glucose Point of Care 156 mg/dL (70-110)
[2024-01-06] MEDS: sodium chloride 0.9% 1,000 ML 100 ML IV (16:52)
[2024-01-06 17:06] LABS: Glucose Point of Care 147 mg/dL (70-110)
[2024-01-06] MEDS: tamsulosin 0.4 mg Capsule 0.800000000000000044 MG PO (17:51)
[2024-01-06] MEDS: atorvastatin 40 mg Tablet PO (17:51)
[2024-01-06 18:40] LABS: Partial Thromboplastin Time 30.2 SECONDS (23.9-36.7)
[2024-01-06] MEDS: morphine 4 mg/mL SDV 1 mL IVP (19:24)
[2024-01-06 21:04] LABS: Glucose Point of Care 150 mg/dL (70-110)
--- NOTE | 2024-01-06 21:34 | PC.NURSE ---
sheath pull & TR band removeal
--- NOTE | 2024-01-06 21:35 | PC.NURSE ---
TR band and Sheath removal 1851 -- 2mL air removed from Right radial TR band 1929 -- Right femoral sheath removed, pressure applied. 1944 -- Released pressure from right femoral artery. No bleeding or hematoma noted. Pulses remain strong to right dorsalis pedis.2 mL air removed from Right radial TR band. 2014 -- 3 mL air removed from Right radial TR band, no bleeding or hematoma noted, TR band removed and elastic bandage applied. No bleeding or hematoma noted to right femoral Sheath removal site. gauze and clear occlusive dressing applied.
[2024-01-07] VITALS (20 sets, daily range): BP systolic 131–170; BP diastolic 69–103; PULSE 58–100; RESP 14–22; TEMP 36.6–37.4; O2SAT 92–95
[2024-01-07] MEDS: sodium chloride 0.9% 1,000 ML 100 ML IV ×2 (03:07→13:17)
[2024-01-07] MEDS: HYDROmorphone 1 mg/mL INJ 1 mL IVP ×3 (03:09→10:20)
[2024-01-07 05:15] LABS: Basophils # 0.1 10^3/uL (0.0-0.1); Basophils % 0.3 %; Eosinophils # 0.4 10^3/uL (0.0-0.8); Eosinophils % 2.4 %; Hematocrit 34.7 % (37-53); Lymphocytes # 1.4 10^3/uL (0.8-4.8); Mean Corpuscular Hemoglobin 29.1 pg (27-33); Mean Corpuscular Volume 85.5 fl (82-101); Mean Platelet Volume 10.2 fL (7.4-10.4); Monocytes # 1.3 10^3/uL (0.2-0.9); Monocytes % 9.2 %; Neutrophils # 11.21 10^3/uL (1.8-7.7); Neutrophils % 77.5 %; Nucleated Red Blood Cells % 0 %; Platelet Count 213 10^3/cmm (157-399); Red Blood Count 4.06 10^6/uL (3.85-5.65); Red Cell Distribution Width 13.3 % (12.1-15.1); White Blood Count 14.46 10^3/uL (3.29-11.43)
[2024-01-07 05:34] LABS: Anion Gap 16.3 (5-19); Blood Urea Nitrogen 18 mg/dL (8-23); Calcium 8.5 mg/dL (8.5-10.5); Carbon Dioxide 22 mmol/L (22-29); Chloride 102 mmol/L (98-107); Creatinine Clr Calc Pharmacy 53.9449; Glucose 177 mg/dL (65-115); Magnesium 1.8 mg/dL (1.7-2.3); Osmolality Calculated 288 mOsm/kg (285-295); Potassium 4.3 mmol/L (3.5-5.1); Sodium 136 mmol/L (136-145)
[2024-01-07 08:11] LABS: Glucose Point of Care 237 mg/dL (70-110)
--- NOTE | 2024-01-07 08:31 | P.PN_ITS ---
Vitals/I&O/Wt Last Vital Signs Temp 98.6 F 01/07/24 08:19 Pulse 77 01/07/24 06:00 Resp 14 01/07/24 06:15 BP 134/103 01/07/24 04:00 Pulse Ox 93 01/07/24 04:00 O2 Del Method Nasal Cannula 01/07/24 04:00 O2 Flow Rate 2 01/07/24 04:00 01/06/24 01/07/24 01/07/24 22:59 06:59 14:59 Intake Total 1540 / 1740 1250 / 2990 191.427 / 191.427 Output Total 1650 / 1650 475 / 2125 Balance -110 / 90 775 / 865 191.427 / 191.427 Weight last 48 hrs Weight 190 lb 6.4 oz Weight 187 lb 12.8 oz Weight 194 lb 9.6 oz Physical Exam 2 Urinary Catheter Management: Guzmán: Cath Placed During This Visit: yes Reason for Continuing Indwelling Catheter: Accurate Measurement of Urinary Output in Critically Ill Patients Urinary Catheter Date of Insertion: 01/06/24 Urinary Catheter Time of Insertion: 20:00 Data 01/07/24 04:37 01/07/24 04:37 Coding Level of Care Code Acute Code for Chg Fwd
[2024-01-07] MEDS: insulin lispro 100 unit/1 mL SUBCUT ×3 (08:32→17:00)
[2024-01-07] MEDS: metoprolol tartrate 25 mg Tablet PO (08:32)
[2024-01-07] MEDS: amlodipine 10 mg Tablet PO (08:33)
[2024-01-07] MEDS: pantoprazole DR 40 mg Tablet PO (08:33)
[2024-01-07] MEDS: clopidogrel 75 mg Tablet PO (08:33)
[2024-01-07] MEDS: duloxetine 30 mg Capsule PO ×2 (08:33→17:00)
--- NOTE | 2024-01-07 09:37 | P.PN_ITS ---
Subjective 2 Subjective: Patient had the cardiac catheterization yesterday. He was found to have a high- grade lesion of the proximal LAD which was intervened. 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 Currently the patient is remaining pain-free. He has no recurrence of arrhythmia. I reviewed his telemetry rhythm strip with the syncope. Looks like the patient had SVT with aberrant conduction/accessory pathway. Medications: Medication Review Details: Current Medications Al Hydrox/Mg Hydrox/Simethicone (Zzhz-Tyj-Pbfckvzpk-Manuel 30 Ml Udc) 30 ml PO Q15M PRN PRN Reason: INDIGESTION Albuterol Sulfate (Albuterol 2.5 Mg/3 Ml Neb) 2.5 mg INHALATION QID.RESPIRATORY PRN PRN Reason: shortness of breath or wheezing Alprazolam (Alprazolam 0.5 Mg Tablet) 0.25 mg PO TID PRN PRN Reason: ANXIETY Amlodipine Besylate (Amlodipine 10 Mg Tablet) 10 mg PO DAILY [facility] Last Admin: 01/07/24 08:33 Dose: 10 mg Atorvastatin Calcium (Atorvastatin 40 Mg Tablet) 40 mg PO ACSUPPER [facility] Last Admin: 01/06/24 17:51 Dose: 40 mg Atropine Sulfate (Atropine 1 Mg/Ml Sdv 1 Ml) 0.5 mg IVP PRN PRN PRN Reason: Symptomatic bradycardia Clopidogrel Bisulfate (Clopidogrel 75 Mg Tablet) 75 mg PO DAILY [facility] Last Admin: 01/07/24 08:33 Dose: 75 mg Duloxetine HCl (Duloxetine 30 Mg Capsule) 30 mg PO BID [facility] Last Admin: 01/07/24 08:33 Dose: 30 mg Hydromorphone HCl (Hydromorphone 1 Mg/Ml Inj 1 Ml) 1 mg IVP Q3H PRN PRN Reason: MODERATE TO SEVERE PAIN Last Admin: 01/07/24 06:15 Dose: 1 mg Dextrose (D5w) 500 mls @ 0 mls/hr IV ONCE PRN; Protocol PRN Reason: Adult Acute Hypoglycemia Prot Dextrose (D10w) 125 mls @ 750 mls/hr IV PRN PRN; Protocol PRN Reason: Adult Acute Hypoglycemia Nursing Protocol Dextrose (D10w) 250 mls @ 1,000 mls/hr IV PRN PRN; Protocol PRN Reason: Adult Acute Hypoglycemia Nursing Protocol Amiodarone HCl/Dextrose (Nexterone) 360 mg in 200 mls @ 0 mls/hr IV .Q0M [facility]; Protocol Last Admin: 01/07/24 07:42 Dose: 0.5 mg/min, 16.67 mls/hr Sodium Chloride (Sodium Chloride 0.9%) 1,000 mls @ 100 mls/hr IV .Q10H [facility] Last Admin: 01/07/24 03:07 Dose: 100 mls/hr Insulin Human Lispro (Insulin Lispro 100 Unit/1 Ml) 0 unit SUBCUT WM&BEDTIME [facility]; Protocol Last Admin: 01/07/24 08:32 Dose: 8 unit Magnesium Hydroxide (Magnesium Hydroxide 30 Ml Udc) 30 ml PO DAILY PRN PRN Reason: CONSTIPATION Metoprolol Tartrate (Metoprolol Tartrate 25 Mg Tablet) 25 mg PO BID [facility] Last Admin: 01/07/24 08:32 Dose: 25 mg Naloxone HCl (Naloxone 0.4 Mg/Ml Sdv) 0.1 mg IVP Q2M PRN PRN Reason: RESPIRATORY RATE < 8/MIN Nitroglycerin (Nitroglycerin 0.4 Mg Sublingual Tablet) 0.4 mg SUBLINGUAL Q5M PRN PRN Reason: CHEST PAIN Ondansetron HCl (Ondansetron 2 Mg/Ml Sdv 2 Ml) 4 mg IVP Q8H PRN PRN Reason: vomiting, or N/V if npo Ondansetron HCl (Ondansetron 4 Mg Tablet) 4 mg PO Q8H PRN PRN Reason: NAUSEA Pantoprazole Sodium (Pantoprazole Dr 40 Mg Tablet) 40 mg PO DAILY [facility] Last Admin: 01/07/24 08:33 Dose: 40 mg Tamsulosin HCl (Tamsulosin 0.4 Mg Capsule) 0.8 mg PO ACSU[facility] Last Admin: 01/06/24 17:51 Dose: 0.8 mg Temazepam (Temazepam 15 Mg Capsule) 15 mg PO BEDTIME PRN PRN Reason: INSOMNIA Vitals/I&O/Wt Last Vital Signs Temp 98.6 F 01/07/24 08:19 Pulse 77 01/07/24 06:00 Resp 14 01/07/24 06:15 BP 134/103 01/07/24 04:00 Pulse Ox 93 01/07/24 04:00 O2 Del Method Nasal Cannula 01/07/24 04:00 O2 Flow Rate 2 01/07/24 04:00 01/06/24 01/07/24 01/07/24 22:59 06:59 14:59 Intake Total 1540 / 1740 1250 / 2990 551.427 / 551.427 Output Total 1650 / 1650 475 / 2125 Balance -110 / 90 775 / 865 551.427 / 551.427 Weight last 48 hrs Weight 190 lb 6.4 oz Weight 187 lb 12.8 oz Weight 194 lb 9.6 oz Physical Exam 2 Narrative: GENERAL: The patient is alert and oriented times three. Not in any acute distress. HEENT: No significant pallor, icterus or lymphadenopathy.Oral cavity: There are no mucous membrane lesions. NECK: Trachea appears to be central. No masses noted. No JVD or thyromegaly appreciated. RESPIRATORY: Chest is symmetrical. No intercostals muscle retraction or any accessory muscle activation. There is no chest wall tenderness. Breath sounds are heard bilaterally. No rales or rhonchi heard. No evidence of any consolidation. BREASTS: Deferred. HEART: The heart sounds are normal. No S3 or S4. No significant murmurs. No pericardial rub ABDOMEN: No vessel pulsations or distention. No tenderness. No organomegaly appreciated. Bowel sounds are normally heard. : Deferred. RECTAL: Deferred. LYMPHATIC: No lymphadenopathy noted in the neck. EXTREMITIES: No edema or cyanosis. No clubbing. MUSCULOSKELETAL: No acute joint deformities or swelling SKIN: There are no significant rashes or ecchymosis NEUROPSYCHIATRIC: The patient is alert and oriented x3. Appears to be in a good mood. No tremors or rigidity noted. Urinary Catheter Management: Guzmán: Cath Placed During This Visit: yes Reason for Continuing Indwelling Catheter: Accurate Measurement of Urinary Output in Critically Ill Patients Urinary Catheter Date of Insertion: 01/06/24 Urinary Catheter Time of Insertion: 20:00 Data 01/07/24 04:37 01/07/24 04:37 Other Labs: Laboratory Last Values WBC 14.46 10^3/uL (3.29-11.43) H 01/07/24 04:37 RBC 4.06 10^6/uL (3.85-5.65) 01/07/24 04:37 Hgb 11.80 g/dL (11.27-16.99) 01/07/24 04:37 Hct 34.7 % (37-53) L 01/07/24 04:37 MCV 85.5 fl (82-101) 01/07/24 04:37 MCH 29.1 pg (27-33) 01/07/24 04:37 MCHC 34.0 g/dL (30-55) 01/07/24 04:37 RDW 13.3 % (12.1-15.1) 01/07/24 04:37 Plt Count 213 10^3/cmm (157-399) 01/07/24 04:37 MPV 10.2 fL (7.4-10.4) 01/07/24 04:37 Neut % (Auto) 77.5 % 01/07/24 04:37 Lymph % (Auto) 10.0 % 01/07/24 04:37 [place] % (Auto) 9.2 % 01/07/24 04:37 Eos % (Auto) 2.4 % 01/07/24 04:37 Baso % (Auto) 0.3 % 01/07/24 04:37 Neut # (Auto) 11.21 10^3/uL (1.8-7.7) H 01/07/24 04:37 Lymph # (Auto) 1.4 10^3/uL (0.8-4.8) 01/07/24 04:37 [place] # (Auto) 1.3 10^3/uL (0.2-0.9) H 01/07/24 04:37 Eos # (Auto) 0.4 10^3/uL (0.0-0.8) 01/07/24 04:37 Baso # (Auto) 0.1 10^3/uL (0.0-0.1) 01/07/24 04:37 Nucleated RBC % (auto) 0 % 01/07/24 04:37 Nucleated RBCs # 0.0 /100WBC 01/07/24 04:37 PT 13.10 SECONDS (12.1-14.9) 01/03/24 23:10 INR 0.96 (0.8-1.2) 01/03/24 23:10 APTT 30.2 SECONDS (23.9-36.7) 01/06/24 17:49 Specimen Type Arterial 01/05/24 00:50 Sample Site Radial, right 01/05/24 00:50 ABG pH 7.39 (7.35-7.45) 01/05/24 00:50 ABG pCO2 30.8 mmHg (35-45) L 01/05/24 00:50 ABG pO2 94.9 mmHg (80.0-100.0) 01/05/24 00:50 ABG PO2/FiO2 Ratio 0 01/05/24 00:50 ABG HCO3 18.6 mmol/L (22-26) L 01/05/24 00:50 ABG O2 Saturation 95.9 01/05/24 00:50 ABG Base Excess -5.2 mmol/L (-2.0-2.0) L 01/05/24 00:50 Reza Test Pos 01/05/24 00:50 A-a O2 Gradient 15.8 mmHg (5-10) H 01/05/24 00:50 Hematocrit 42.8 % (42-52) 01/05/24 00:50 Hgb O2 Saturation 95.8 % (95-100) 01/05/24 00:50 Carboxyhemoglobin < 0.0 %THgb (0.4-20.1) L 01/05/24 00:50 Methemoglobin 0.3 % (0.4-1.5) L 01/05/24 00:50 Total Hemoglobin 14.0 g/dL (14-18) 01/05/24 00:50 Sodium 142.0 mmol/L (131-143) 01/05/24 00:50 Potassium 3.1 mmol/L (3.5-5.0) L 01/05/24 00:50 Glucose 337.0 mg/dL (70-115) H 01/05/24 00:50 Ionized Calcium 1.2 mmol/L (1.1-1.4) 01/05/24 00:50 O2 Delivery Device Nc 01/05/24 00:50 O2 Liters/Min 4.0 % 01/05/24 00:50 FiO2 36.0 % 01/05/24 00:50 Workforce Management Coordinator ID [email or web address] 01/05/24 00:50 Sodium 136 mmol/L (136-145) 01/07/24 04:37 Potassium 4.3 mmol/L (3.5-5.1) 01/07/24 04:37 Chloride 102 mmol/L (98-107) 01/07/24 04:37 Carbon Dioxide 22 mmol/L (22-29) 01/07/24 04:37 Anion Gap 16.3 (5-19) 01/07/24 04:37 BUN 18 mg/dL (8-23) 01/07/24 04:37 Creatinine 1.2 mg/dL (0.7-1.2) 01/07/24 04:37 GFR Calculation Not Reportable 01/07/24 04:37 Glucose 177 mg/dL (65-115) H 01/07/24 04:37 POC Glucose 237 mg/dL (70-110) H 01/07/24 07:56 Calculated Osmolality 288 mOsm/kg (285-295) 01/07/24 04:37 Calcium 8.5 mg/dL (8.5-10.5) 01/07/24 04:37 Magnesium 1.8 mg/dL (1.7-2.3) 01/07/24 04:37 Total Bilirubin 0.3 mg/dL (0.15-1.2) 01/05/24 07:39 AST 128 U/L (0-40) H 01/05/24 07:39 ALT 144 U/L (0-41) H 01/05/24 07:39 Alkaline Phosphatase 137 U/L (40-130) H 01/05/24 07:39 Troponin T Baseline 30 ng/L (0-15) H 01/05/24 01:02 Troponin T 120 Minute Cancelled 01/05/24 07:39 Delta Troponin T Cancelled 01/05/24 07:39 Troponin T Hi Sens 6Hr 50.16 ng/L (0-15) H 01/05/24 07:39 Troponin T Hi Sens 6Hr Delta 20.16 ng/L (0-12) H* 01/05/24 07:39 Total Protein 6.2 g/dL (6.6-8.7) L 01/05/24 07:39 Albumin 3.8 g/dL (3.5-5.2) 01/05/24 07:39 Globulin 2.4 g/dL (1.3-4.6) 01/05/24 07:39 Urine Color Yellow (Yellow) 01/04/24 02:05 Urine Appearance Clear (CLEAR) 01/04/24 02:05 Urine pH 5 (5-7) 01/04/24 02:05 Ur Specific [place] 1.015 (1.005-1.030) 01/04/24 02:05 Urine Protein 1+ (Negative) H 01/04/24 02:05 Urine Glucose (UA) 2+ (Normal) H 01/04/24 02:05 Urine Ketones 1+ (Negative) H 01/04/24 02:05 Urine Blood Neg (Negative) 01/04/24 02:05 Urine Nitrate Negative (Negative) 01/04/24 02:05 Urine Bilirubin Neg (Negative) 01/04/24 02:05 Urine Urobilinogen Neg mg/dL (Negative) 01/04/24 02:05 Ur Leukocyte Esterase Negative (Negative) 01/04/24 02:05 Urine RBC 0-4 /hpf (0-2) H 01/04/24 02:05 Urine WBC 0-4 /hpf (0-5) H 01/04/24 02:05 Ur Squamous Epith Cells 0-4 /hpf (0-5) H 01/04/24 02:05 Amorphous Sediment Not Reportable 01/04/24 02:05 Urine Bacteria Trace /hpf (NONE) 01/04/24 02:05 Urine Mucus Trace /hpf 01/04/24 02:05 A&P Assessment and plan (1) Atherosclerosis of coronary artery of [place] heart without angina pectoris: Status post cardiac colorization and PCI. Currently seems to be stable. Will continue on the current medications. Qualifiers: Coronary Disease-Associated Artery/Lesion type: [place] artery Qualified Code(s): I25.10 - Atherosclerotic heart disease of [place] coronary artery without angina pectoris (2) Recurrent syncope: Currently seems to be stable with no recurrence. Looks like the patient had SVT followed by wide-complex tachycardia possibly from aberrant conduction, followed by ventricular fibrillation. (3) Intermittent atrial fibrillation: Currently in sinus rhythm with PACs (4) Supraventricular tachycardia by ECG: I reviewed the rhythm strips with the reference investigator. The patient seems to have SVT and accessory pathway. He may benefit from electrophysiological studies and possible ablation. Plan I contacted Dr. Cody at the [facility]. He accepted his transfer for further management. Discussed with Dr. Sanchez. We may have to wait for a bed Attestations 2 Medical Necessity Statement*: Deferred to the primary Coding Level of Care Code Acute Code for Chg Fwd Diagnoses Atherosclerosis of [place] coronary artery of [place] heart without angina pectoris I25.10 Coronary Disease-Associated Artery/Lesion type: [place] artery Recurrent syncope R55 Intermittent atrial fibrillation I48.0 Supraventricular tachycardia by ECG I47.10
[2024-01-07 10:55] LABS: Glucose Point of Care 277 mg/dL (70-110)
--- NOTE | 2024-01-07 12:05 | PM.TDS ---
Transfer Summary Providers Date of Admission: 01/05/24 00:57 <Jan Rendon, MED STDNT - Last Filed: 01/07/24 12:33> Date of Discharge/Transfer: 01/07/24 <Jan Rendon MED STDNT - Last Filed: 01/07/24 12:33> 01/07/24 <Tierney Sanchez MD - Last Filed: 01/07/24 13:50> Attending Provider at Admission: Basim Gomez MD <Jan Rendon MED STDNT - Last Filed: 01/07/24 12:33> Attending Provider at Transfer: Tierney Sanchez MD <Jan Rendon MED STDNT - Last Filed: 01/07/24 12:33> Primary Care Provider: Grover Servin DO <Jan Rendon MED STDNT - Last Filed: 01/07/24 12:33> Transfer Plans: Anticipated date of transfer: 01/07/24. <Jan Rendon MED STDNT - Last Filed: 01/07/24 12:33> Anticipated date of transfer: 01/07/24. <Tierney Sanchez MD - Last Filed: 01/07/24 13:50> Diagnoses at Discharge Discharge Diagnosis (1) Atherosclerosis of coronary artery of [place] heart without angina pectoris: Status: Acute <Jan Rendon, MED STDNT - Last Filed: 01/07/24 12:33> Qualifiers: Coronary Disease-Associated Artery/Lesion type: [place] artery Qualified Code(s): I25.10 - Atherosclerotic heart disease of [place] coronary artery without angina pectoris <Jan Rendon, MED STDNT - Last Filed: 01/07/24 12:33> (2) Recurrent syncope: Status: Acute <Jan Rendon, MED STDNT - Last Filed: 01/07/24 12:33> (3) Intermittent atrial fibrillation: Status: Acute <Jan Rendon, MED STDNT - Last Filed: 01/07/24 12:33> (4) Supraventricular tachycardia by ECG: Status: Acute <Jan Rendon, MED STDNT - Last Filed: 01/07/24 12:33> Reason for Visit Reason for Visit dizzy <Jan Rendon MED STDNT - Last Filed: 01/07/24 12:33> Brief History: Chen Carson is a 73 year old male with a past medical history significant for coronary artery disease, atrial fibrillation, hyperlipidemia, hypertension, type 2 diabetes mellitus, and syncope who presents to the emergency department with syncopal episode. Patient notes that he exerted himself more than usual yesterday. He states that after dinner he had gotten up and gone into the kitchen at which time he became dizzy. The next thing he remembers easily waking up. His family members bedside and states that she heard him hit the floor. He was unconscious for about 5 minutes. He does wear continuous glucose monitor and she checked his glucose level. His glucose level during and after the incident ranged from 120s to 180s. She reports when he woke up he was short of breath. He denies any chest pain or other neurological changes. Patient has a history of syncope. He was admitted in June 2022 for syncopal episode, found to have atrial fibrillation with rapid ventricular rate. Event monitor was performed at that time. <Tierney Sanchez MD - Last Filed: 01/07/24 13:50> Hospital Course Hospital Course Patient presents to the ER on January 02 with complaints of syncope. Patient's history significant for CAD, A-fib, hyperlipidemia, hypertension, type 2 diabetes, and syncope. Apparently heard him hit the floor and found him unresponsive. Admitting EKG shows sinus rhythm with PVCs. January 04, second day of his stay patient had a rapid response event. Patient was asleep when it was noted that his rhythm was supraventricular tachycardia with rates up to 300. Following this critical care event note from the rapid response.: Responded to a rapid response on this gentleman. Was admitted for syncope, and elevated troponin on January 03. Has history of coronary artery disease, intermittent A-fib. When I arrived he had been cardioverted x 1 and received some CPR. Nursing indicates his heart rate was about 200, initially in narrow complex tachycardia. CPR was underway, and during a pulse check it was found that he was in ventricular tachycardia. He was immediately defibrillated, and CPR ensued. Epinephrine was going to be given but ROSC was achieved quickly. Blood pressure and O2 sat was acceptable. Amiodarone 150 mg IV was given and a drip was started. Intubation was considered, but he was able to open his eyes to command following ROSC. EKG was done demonstrating no ST elevation. I believe overall he probably had less than 2 minutes of CPR. He did not receive any epinephrine. Amiodarone was given as both a bolus and a drip was started. ABG shows a pH 7.389, pCO2 31, pO2 95. I have ordered a CBC, CMP, magnesium, EKG and troponin series. updated in detail. An amp of D50 was also given. Blood sugar was around 70. He is already fully anticoagulated on apixaban. Will hold this but he will need Lovenox or heparin drip at 9:00 or after if he has not already undergone angiogram. Will load with Plavix. Will go ahead and give an aspirin now. Cardiology is updated. Dilaudid will be given as needed pain. He is alert, oriented, in sinus rhythm with stable vital signs at this time. Cardiology was consulted. Coronary angiogram was performed. Patient found to have a high-grade lesion of proximal LAD which was intervened with 2 DENNY stents. Right coronary artery was found to be totally occluded. No recurrence of arrhythmia noted. Rhythm strips were evaluated by cardiology. It seems patient had had SVT with a Kaye conduction accessory pathway. Initially discussion was made for ICD placement however it is recommended by cardiology the patient go for EP study and possible ablation. If at that point an ICD is still needed may be placed. May not have electrophysiology specialty available in our hospital. Patient will be transferred to higher level of care as per recommendation from cardiology. Will contact [facility] for possible transfer. Once facility and accepting doctor is confirmed we will update this note. This document to serve as transfer summary for patient. <MEGHANN Hayward STDNT - Last Filed: 01/07/24 12:33> Physical Exam Narrative: General: Comfortable appearing male, resting in bed, conversing appropriately, speech normal, alert and oriented. HEENT: Head atraumatic, normocephalic to visual infection, PERRL, neck supple thyromegaly noted. CV: Normal rate and rhythm, S1-S2 noted, no murmurs of the gallops noted. Palpation reveals mild chest pain around sternum. Pulm: Lungs clear to auscultation bilaterally. Mild gurgling in the upper airways. GI: Abdomen soft, nontender, bowel sounds present all quadrants. Extremities: Capillary<2 seconds, bilateral pulses equal in upper and lower extremities. All extremities otherwise normal, no edema noted. <Jan RendonMEGHANN STDNT - Last Filed: 01/07/24 12:33> Urinary Catheter Management: Guzmán: Cath Placed During This Visit: yes <Jan RendonMEGHANN STDNT - Last Filed: 01/07/24 12:33> Cath Placed During This Visit: yes <Tierney Sanchez MD - Last Filed: 01/07/24 13:50> Reason for Continuing Indwelling Catheter: Accurate Measurement of Urinary Output in Critically Ill Patients <Jan MEGHANN Rendon STDNT - Last Filed: 01/07/24 12:33> Urinary Catheter Date of Insertion: 01/06/24 <Jan MEGHANN Rendon STDNT - Last Filed: 01/07/24 12:33> Urinary Catheter Time of Insertion: 20:00 <Jannury RhoadesMEGHANN humphreys STDNT - Last Filed: 01/07/24 12:33> TS Data Studies Completed and Pending Pending at discharge Category Date Time Status [employer] DIRECT[employer] request for service Routine Exams 01/06/24 07:44 Taken <Jan MEGHANN Rendon STDNT - Last Filed: 01/07/24 12:33> Completed Studies During Hospitalization Category Date Time Status CT head wo con* [id number] Stat Cat Scan 01/03/24 23:10 Completed XR chest 1V portable [id number] Routine Exams 01/05/24 00:50 Completed XR chest 1V portable [id number] Stat Exams 01/03/24 23:10 Completed CV. echo complete* [id number] Routine Ultrasound 01/05/24 12:58 Completed <MEGHANN Hayward STDNT - Last Filed: 01/07/24 12:33> Laboratory Last Values WBC 14.46 10^3/uL (3.29-11.43) H 01/07/24 04:37 RBC 4.06 10^6/uL (3.85-5.65) 01/07/24 04:37 Hgb 11.80 g/dL (11.27-16.99) 01/07/24 04:37 Hct 34.7 % (37-53) L 01/07/24 04:37 MCV 85.5 fl (82-101) 01/07/24 04:37 MCH 29.1 pg (27-33) 01/07/24 04:37 MCHC 34.0 g/dL (30-55) 01/07/24 04:37 RDW 13.3 % (12.1-15.1) 01/07/24 04:37 Plt Count 213 10^3/cmm (157-399) 01/07/24 04:37 MPV 10.2 fL (7.4-10.4) 01/07/24 04:37 Neut % (Auto) 77.5 % 01/07/24 04:37 Lymph % (Auto) 10.0 % 01/07/24 04:37 [place] % (Auto) 9.2 % 01/07/24 04:37 Eos % (Auto) 2.4 % 01/07/24 04:37 Baso % (Auto) 0.3 % 01/07/24 04:37 Neut # (Auto) 11.21 10^3/uL (1.8-7.7) H 01/07/24 04:37 Lymph # (Auto) 1.4 10^3/uL (0.8-4.8) 01/07/24 04:37 [place] # (Auto) 1.3 10^3/uL (0.2-0.9) H 01/07/24 04:37 Eos # (Auto) 0.4 10^3/uL (0.0-0.8) 01/07/24 04:37 Baso # (Auto) 0.1 10^3/uL (0.0-0.1) 01/07/24 04:37 Nucleated RBC % (auto) 0 % 01/07/24 04:37 Nucleated RBCs # 0.0 /100WBC 01/07/24 04:37 PT 13.10 SECONDS (12.1-14.9) 01/03/24 23:10 INR 0.96 (0.8-1.2) 01/03/24 23:10 APTT 30.2 SECONDS (23.9-36.7) 01/06/24 17:49 Specimen Type Arterial 01/05/24 00:50 Sample Site Radial, right 01/05/24 00:50 ABG pH 7.39 (7.35-7.45) 01/05/24 00:50 ABG pCO2 30.8 mmHg (35-45) L 01/05/24 00:50 ABG pO2 94.9 mmHg (80.0-100.0) 01/05/24 00:50 ABG PO2/FiO2 Ratio 0 01/05/24 00:50 ABG HCO3 18.6 mmol/L (22-26) L 01/05/24 00:50 ABG O2 Saturation 95.9 01/05/24 00:50 ABG Base Excess -5.2 mmol/L (-2.0-2.0) L 01/05/24 00:50 Reza Test Pos 01/05/24 00:50 A-a O2 Gradient 15.8 mmHg (5-10) H 01/05/24 00:50 Hematocrit 42.8 % (42-52) 01/05/24 00:50 Hgb O2 Saturation 95.8 % (95-100) 01/05/24 00:50 Carboxyhemoglobin < 0.0 %THgb (0.4-20.1) L 01/05/24 00:50 Methemoglobin 0.3 % (0.4-1.5) L 01/05/24 00:50 Total Hemoglobin 14.0 g/dL (14-18) 01/05/24 00:50 Sodium 142.0 mmol/L (131-143) 01/05/24 00:50 Potassium 3.1 mmol/L (3.5-5.0) L 01/05/24 00:50 Glucose 337.0 mg/dL (70-115) H 01/05/24 00:50 Ionized Calcium 1.2 mmol/L (1.1-1.4) 01/05/24 00:50 O2 Delivery Device Nc 01/05/24 00:50 O2 Liters/Min 4.0 % 01/05/24 00:50 FiO2 36.0 % 01/05/24 00:50 Quality Eng ID glc 01/05/24 00:50 Sodium 136 mmol/L (136-145) 01/07/24 04:37 Potassium 4.3 mmol/L (3.5-5.1) 01/07/24 04:37 Chloride 102 mmol/L (98-107) 01/07/24 04:37 Carbon Dioxide 22 mmol/L (22-29) 01/07/24 04:37 Anion Gap 16.3 (5-19) 01/07/24 04:37 BUN 18 mg/dL (8-23) 01/07/24 04:37 Creatinine 1.2 mg/dL (0.7-1.2) 01/07/24 04:37 GFR Calculation Not Reportable 01/07/24 04:37 Glucose 177 mg/dL (65-115) H 01/07/24 04:37 POC Glucose 277 mg/dL (70-110) H 01/07/24 10:49 Calculated Osmolality 288 mOsm/kg (285-295) 01/07/24 04:37 Calcium 8.5 mg/dL (8.5-10.5) 01/07/24 04:37 Magnesium 1.8 mg/dL (1.7-2.3) 01/07/24 04:37 Total Bilirubin 0.3 mg/dL (0.15-1.2) 01/05/24 07:39 AST 128 U/L (0-40) H 01/05/24 07:39 ALT 144 U/L (0-41) H 01/05/24 07:39 Alkaline Phosphatase 137 U/L (40-130) H 01/05/24 07:39 Troponin T Baseline 30 ng/L (0-15) H 01/05/24 01:02 Troponin T 120 Minute Cancelled 01/05/24 07:39 Delta Troponin T Cancelled 01/05/24 07:39 Troponin T Hi Sens 6Hr 50.16 ng/L (0-15) H 01/05/24 07:39 Troponin T Hi Sens 6Hr Delta 20.16 ng/L (0-12) H* 01/05/24 07:39 Total Protein 6.2 g/dL (6.6-8.7) L 01/05/24 07:39 Albumin 3.8 g/dL (3.5-5.2) 01/05/24 07:39 Globulin 2.4 g/dL (1.3-4.6) 01/05/24 07:39 Urine Color Yellow (Yellow) 01/04/24 02:05 Urine Appearance Clear (CLEAR) 01/04/24 02:05 Urine pH 5 (5-7) 01/04/24 02:05 Ur Specific [place] 1.015 (1.005-1.030) 01/04/24 02:05 Urine Protein 1+ (Negative) H 01/04/24 02:05 Urine Glucose (UA) 2+ (Normal) H 01/04/24 02:05 Urine Ketones 1+ (Negative) H 01/04/24 02:05 Urine Blood Neg (Negative) 01/04/24 02:05 Urine Nitrate Negative (Negative) 01/04/24 02:05 Urine Bilirubin Neg (Negative) 01/04/24 02:05 Urine Urobilinogen Neg mg/dL (Negative) 01/04/24 02:05 Ur Leukocyte Esterase Negative (Negative) 01/04/24 02:05 Urine RBC 0-4 /hpf (0-2) H 01/04/24 02:05 Urine WBC 0-4 /hpf (0-5) H 01/04/24 02:05 Ur Squamous Epith Cells 0-4 /hpf (0-5) H 01/04/24 02:05 Amorphous Sediment Not Reportable 01/04/24 02:05 Urine Bacteria Trace /hpf (NONE) 01/04/24 02:05 Urine Mucus Trace /hpf 01/04/24 02:05 <Jan Rendon, MED STDNT - Last Filed: 01/07/24 12:33> Radiology Impressions Head CT 01/03/24 23:10 IMPRESSION: No acute intracranial abnormality. Chest X-Ray 01/05/24 00:50 IMPRESSION: 1. Mild stable cardiomegaly. Distended azygos arch suggests elevated right heart pressures. 2. Clear lungs. <Jan Rendon, MED STDNT - Last Filed: 01/07/24 12:33> Recent Clincial Data Last Vital Signs Temp 98.6 F 01/07/24 08:19 Pulse 64 01/07/24 10:10 Resp 22 H 01/07/24 10:20 BP 134/103 01/07/24 04:00 Pulse Ox 94 01/07/24 10:10 O2 Del Method Nasal Cannula 01/07/24 10:10 O2 Flow Rate 2 01/07/24 10:10 Vital Signs Temp Pulse Resp BP Pulse Ox O2 Del Method O2 Flow Rate 01/07/24 10:20 22 H 01/07/24 10:10 64 18 94 Nasal Cannula 2 01/07/24 08:19 98.6 F 01/07/24 06:15 14 01/07/24 06:00 77 01/07/24 04:00 98.4 F 88 19 H 134/103 93 Nasal Cannula 2 01/07/24 03:09 18 01/07/24 03:00 100 21 H 168/93 92 01/07/24 02:00 87 19 H 142/90 93 Nasal Cannula 2 01/07/24 01:00 77 18 141/72 94 Intake & Output/Weight 01/05/24 01/06/24 01/07/24 01/08/24 06:59 06:59 06:59 06:59 Intake Total 1500 / 1500 800 / 800 2990 / 2990 551.427 / 551.427 Output Total 600 / 600 2125 / 2125 Balance 900 / 900 800 / 800 865 / 865 551.427 / 551.427 Weight 194 lb 9.6 oz 187 lb 12.8 oz 190 lb 6.4 oz <Jan RendonDigium STDNT - Last Filed: 01/07/24 12:33> Vitals Last Vital Signs Temp 98.6 F 01/07/24 08:19 Pulse 64 01/07/24 10:10 Resp 22 H 01/07/24 10:20 BP 134/103 01/07/24 04:00 Pulse Ox 94 01/07/24 10:10 O2 Del Method Nasal Cannula 01/07/24 10:10 O2 Flow Rate 2 01/07/24 10:10 <Jan [employer] (IM[employer]) STDNT - Last Filed: 01/07/24 12:33> TS Medications Medications Al Hydrox/Mg Hydrox/Simethicone (Ysyv-Rse-Opckyxpzw-Manuel 30 Ml Udc) 30 ml PO Q15M PRN PRN Reason: INDIGESTION Albuterol Sulfate (Albuterol 2.5 Mg/3 Ml Neb) 2.5 mg INHALATION QID.RESPIRATORY PRN PRN Reason: shortness of breath or wheezing Alprazolam (Alprazolam 0.5 Mg Tablet) 0.25 mg PO TID PRN PRN Reason: ANXIETY Amlodipine Besylate (Amlodipine 10 Mg Tablet) 10 mg PO DAILY [facility] Last Admin: 01/07/24 08:33 Dose: 10 mg Atorvastatin Calcium (Atorvastatin 40 Mg Tablet) 40 mg PO ACSUPPER [facility] Last Admin: 01/06/24 17:51 Dose: 40 mg Atropine Sulfate (Atropine 1 Mg/Ml Sdv 1 Ml) 0.5 mg IVP PRN PRN PRN Reason: Symptomatic bradycardia Clopidogrel Bisulfate (Clopidogrel 75 Mg Tablet) 75 mg PO DAILY [facility] Last Admin: 01/07/24 08:33 Dose: 75 mg Duloxetine HCl (Duloxetine 30 Mg Capsule) 30 mg PO BID [facility] Last Admin: 01/07/24 08:33 Dose: 30 mg Hydromorphone HCl (Hydromorphone 1 Mg/Ml Inj 1 Ml) 1 mg IVP Q3H PRN PRN Reason: MODERATE TO SEVERE PAIN Last Admin: 01/07/24 10:20 Dose: 1 mg Dextrose (D5w) 500 mls @ 0 mls/hr IV ONCE PRN; Protocol PRN Reason: Adult Acute Hypoglycemia Prot Dextrose (D10w) 125 mls @ 750 mls/hr IV PRN PRN; Protocol PRN Reason: Adult Acute Hypoglycemia Nursing Protocol Dextrose (D10w) 250 mls @ 1,000 mls/hr IV PRN PRN; Protocol PRN Reason: Adult Acute Hypoglycemia Nursing Protocol Amiodarone HCl/Dextrose (Nexterone) 360 mg in 200 mls @ 0 mls/hr IV .Q0M [facility]; Protocol Last Admin: 01/07/24 07:42 Dose: 0.5 mg/min, 16.67 mls/hr Sodium Chloride (Sodium Chloride 0.9%) 1,000 mls @ 100 mls/hr IV .Q10H [facility] Last Admin: 01/07/24 03:07 Dose: 100 mls/hr Insulin Human Lispro (Insulin Lispro 100 Unit/1 Ml) 0 unit SUBCUT WM&BEDTIME [facility]; Protocol Last Admin: 01/07/24 08:32 Dose: 8 unit Magnesium Hydroxide (Magnesium Hydroxide 30 Ml Udc) 30 ml PO DAILY PRN PRN Reason: CONSTIPATION Naloxone HCl (Naloxone 0.4 Mg/Ml Sdv) 0.1 mg IVP Q2M PRN PRN Reason: RESPIRATORY RATE < 8/MIN Nitroglycerin (Nitroglycerin 0.4 Mg Sublingual Tablet) 0.4 mg SUBLINGUAL Q5M PRN PRN Reason: CHEST PAIN Ondansetron HCl (Ondansetron 2 Mg/Ml Sdv 2 Ml) 4 mg IVP Q8H PRN PRN Reason: vomiting, or N/V if npo Ondansetron HCl (Ondansetron 4 Mg Tablet) 4 mg PO Q8H PRN PRN Reason: NAUSEA Pantoprazole Sodium (Pantoprazole Dr 40 Mg Tablet) 40 mg PO DAILY [facility] Last Admin: 01/07/24 08:33 Dose: 40 mg Tamsulosin HCl (Tamsulosin 0.4 Mg Capsule) 0.8 mg PO ACSUPPER [facility] Last Admin: 01/06/24 17:51 Dose: 0.8 mg Temazepam (Temazepam 15 Mg Capsule) 15 mg PO BEDTIME PRN PRN Reason: INSOMNIA Discontinued Medications Amiodarone HCl (Amiodarone 50 Mg/Ml Sdv 3 Ml) 150 mg .ROUTE .STK-MED ONE Stop: 01/05/24 00:42 Apixaban (Apixaban 5 Mg Tablet) 5 mg PO BID@0900,2100 [facility] Last Admin: 01/04/24 21:19 Dose: 5 mg Aspirin (Aspirin 81 Mg Chew Tablet) 324 mg PO NOW ONE Stop: 01/05/24 01:28 Last Admin: 01/05/24 01:50 Dose: 324 mg Aspirin (Aspirin 325 Mg Tablet) 325 mg PO DAILY [facility] Last Admin: 01/06/24 08:48 Dose: Not Given Aspirin (Aspirin 325 Mg Ec Tablet) Confirm Administered Dose 325 mg .ROUTE .STK-MED ONE Stop: 01/06/24 12:33 Atorvastatin Calcium (Atorvastatin 40 Mg Tablet) 40 mg PO DAILY [facility] Last Admin: 01/06/24 08:48 Dose: Not Given Clopidogrel Bisulfate (Clopidogrel 300 Mg Tablet) 600 mg PO ONCE ONE Stop: 01/05/24 01:28 Last Admin: 01/05/24 01:48 Dose: 600 mg Clopidogrel Bisulfate (Clopidogrel 300 Mg Tablet) Confirm Administered Dose 600 mg .ROUTE .STK-MED ONE Stop: 01/06/24 12:33 Dextrose (Dextrose 50% Syringe 50 Ml) 50 ml .ROUTE .STK-MED ONE Stop: 01/05/24 00:42 Diphenhydramine HCl (Diphenhydramine 50 Mg Capsule) 50 mg PO ONCE ONE Stop: 01/06/24 06:01 Last Admin: 01/06/24 08:51 Dose: Not Given Diphenhydramine HCl (Diphenhydramine 50 Mg Capsule) 50 mg PO ONCE ONE Stop: 01/06/24 09:01 Last Admin: 01/06/24 09:18 Dose: 50 mg Fentanyl (Fentanyl 50 Mcg/Ml Inj 2ml) Confirm Administered Dose 100 mcg .ROUTE .STK-MED ONE Stop: 01/06/24 09:30 Heparin Sodium (Porcine) (Heparin 5,000 Unit/Ml Inj 1 Ml) Confirm Administered Dose 10,000 unit .ROUTE .STK-MED ONE Stop: 01/06/24 08:54 Heparin Sodium (Porcine) (Heparin 5,000 Unit/Ml Inj 1 Ml) Confirm Administered Dose 5,000 unit .ROUTE .STK-MED ONE Stop: 01/06/24 11:31 Heparin Sodium (Porcine) (Heparin 5,000 Unit/Ml Inj 1 Ml) Confirm Administered Dose 5,000 unit .ROUTE .STK-MED ONE Stop: 01/06/24 12:18 Magnesium Sulfate (Magnesium Sulfate Premix) 2 gm in 50 mls @ 50 mls/hr IV ONCE ONE Stop: 01/04/24 03:11 Last Infusion: 01/04/24 03:37 Dose: Infused Amiodarone HCl/Dextrose (Nexterone) 150 mg in 100 mls @ 400 mls/hr IV ONCE ONE Stop: 01/05/24 00:56 Last Admin: 01/05/24 01:27 Dose: Not Given Potassium Chloride (K-Robbin) 100 mls @ 25 mls/hr IV ONCE ONE Stop: 01/05/24 05:43 Last Infusion: 01/05/24 05:42 Dose: Infused Sodium Chloride (Sodium Chloride 0.9%) 1,000 mls @ 50 mls/hr IV .Q20H ONE Stop: 01/07/24 01:59 Last Infusion: 01/06/24 16:42 Dose: Infused Lidocaine HCl (Xylocaine) Confirm Administered Dose 20 mls @ as directed .ROUTE .STK-MED ONE Stop: 01/06/24 08:54 Tirofiban/Sodium Chloride (Aggrastat) Confirm Administered Dose 5 mg in 100 mls @ as directed .ROUTE .STK-MED ONE Stop: 01/06/24 12:34 Insulin Glargine (Insulin Glargine 100 Units/1 Ml) 50 unit SUBCUT QPM [facility] Last Admin: 01/04/24 17:53 Dose: 50 unit Losartan Potassium (Losartan 50 Mg Tablet) 100 mg PO DAILY [facility] Last Admin: 01/04/24 08:48 Dose: 100 mg Metoprolol Tartrate (Metoprolol Tartrate 25 Mg Tablet) 12.5 mg PO BID [facility] Last Admin: 01/04/24 17:53 Dose: 12.5 mg Metoprolol Tartrate (Metoprolol Tartrate 1 Mg/1 Ml Sdv 5 Ml) 5 mg IVP ONCE ONE Stop: 01/04/24 04:09 Last Admin: 01/04/24 04:31 Dose: 5 mg Metoprolol Tartrate (Metoprolol Tartrate 25 Mg Tablet) 25 mg PO BID [facility] Last Admin: 01/07/24 08:32 Dose: 25 mg Metoprolol Tartrate (Metoprolol Tartrate 25 Mg Tablet) 12.5 mg PO ONCE ONE Stop: 01/04/24 20:39 Last Admin: 01/04/24 21:19 Dose: 12.5 mg Midazolam HCl (Midazolam 1 Mg/Ml Inj 2 Ml) Confirm Administered Dose 2 mg .ROUTE .STK-MED ONE Stop: 01/06/24 09:29 Morphine Sulfate (Morphine 4 Mg/Ml Sdv 1 Ml) 1 mg IVP Q2H ONE Stop: 01/05/24 00:52 Last Admin: 01/05/24 01:21 Dose: 1 mg Morphine Sulfate (Morphine 4 Mg/Ml Sdv 1 Ml) 4 mg IVP ONCE ONE Stop: 01/06/24 19:06 Last Admin: 01/06/24 19:24 Dose: 4 mg Nitroglycerin (Nitroglycerin 5 Mg/Ml Sdv 10 Ml) Confirm Administered Dose 50 mg .ROUTE .STK-MED ONE Stop: 01/06/24 09:29 Tamsulosin HCl (Tamsulosin 0.4 Mg Capsule) 0.8 mg PO DAILY [facility] Last Admin: 01/06/24 08:48 Dose: Not Given <MEGHANN Hayward STDNT - Last Filed: 01/07/24 12:33> Allergies acetaminophen [From [facility] with Codeine] Allergy (Verified 01/07/24 07:55) pt states he goes crazy codeine [From [facility] with Codeine] Allergy (Verified 01/07/24 07:55) pt states he goes crazy Home Medications albuterol sulfate 90 mcg/actuation aerosol inhaler 2 inh inhalation Q4H PRN shortness of breath or wheezing #8.5 grams 04/02/21 [Rx Confirmed 01/07/24] blood sugar diagnostic (ReliOn Prime Test Strips) #400 ea 11/14/21 [Rx Confirmed 01/07/24] omeprazole 20 mg capsule,delayed release 20 mg PO DAILY #90 caps 02/18/23 [Rx Confirmed 01/07/24] ciprofloxacin HCl 500 mg tablet 500 mg PO BID for uti, x 10 days #20 tabs 02/26/23 [Rx Confirmed 01/07/24] atorvastatin 80 mg tablet 80 mg PO DAILY #90 tabs 08/20/23 [Rx Confirmed 01/07/24] speedy cath soft 16/5.3 #120 ea 08/20/23 [Rx Confirmed 01/07/24] tamsulosin 0.4 mg capsule (Flomax) 0.8 mg (2 x 0.4 mg) PO DAILY #90 caps 08/20/23 [Rx Confirmed 01/07/24] insulin detemir U-100 100 unit/mL subcutaneous solution (Levemir U-100 Insulin) See Rx Instructions .Route .COMPLEX #70 mL 09/12/23 [Rx Confirmed 01/07/24] metoprolol tartrate 25 mg tablet 12.5 mg (1/2 x 25 mg) PO BID #90 tabs 10/02/23 [Rx Confirmed 01/07/24] cephalexin 500 mg capsule 500 mg PO TID leg infection #15 caps 10/04/23 [Rx Confirmed 01/07/24] duloxetine 30 mg capsule,delayed release See Rx Instructions .Route .COMPLEX #60 caps 10/04/23 [Rx Confirmed 01/07/24] amlodipine 5 mg tablet See Rx Instructions .Route .COMPLEX #60 tabs 10/08/23 [Rx Confirmed 01/07/24] flash glucose sensor (FreeStyle Luiz 2 Sensor kit) #6 kits 10/30/23 [Rx Confirmed 01/07/24] apixaban 5 mg tablet (Eliquis) See Rx Instructions .Route .COMPLEX #180 tabs 11/11/23 [Rx Confirmed 01/07/24] insulin lispro 100 unit/mL subcutaneous pen (Humalog KwikPen (U-100) Insulin) See Rx Instructions .Route .COMPLEX #30 mL 11/22/23 [Rx Confirmed 01/07/24] losartan 100 mg tablet See Rx Instructions .Route .COMPLEX #90 tabs 12/20/23 [Rx Confirmed 01/07/24] <Jan Rendon MED STDNT - Last Filed: 01/07/24 12:33> Discharge Plan Discharge Patient Disposition: Xfer Other <MEGHANN [place]ward STDNT - Last Filed: 01/07/24 12:33> Condition: Stable <Jan Rendon [facility] STDNT - Last Filed: 01/07/24 12:33> Prescriptions: No Action omeprazole 20 mg capsule,delayed release(DR/EC) 20 mg PO DAILY Qty: 90 3RF Flomax 0.4 mg capsule 0.8 mg PO DAILY Qty: 90 3RF atorvastatin 80 mg tablet 80 mg PO DAILY Qty: 90 3RF Rx Instructions: Take one tablet by mouth daily. (DME) speedy cath soft 16/5.3 See Rx Instructions .Route .MEDSUPPLY Qty: 120 5RF Rx Instructions: As directed 99 months metoprolol tartrate 25 mg tablet 12.5 mg PO BID Qty: 90 3RF duloxetine 30 mg capsule,delayed release(DR/EC) See Rx Instructions .ROUTE .COMPLEX Qty: 60 5RF Dose Instruction: take 1 capsule BY MOUTH TWICE DAILY FOR DEPRESSION AND MOOD Rx Instructions: take 1 capsule BY MOUTH TWICE DAILY FOR DEPRESSION AND MOOD cephalexin 500 mg capsule 500 mg PO TID Qty: 15 0RF (DME) ReliOn Prime Test Strips Strip See Rx Instructions .Route Qty: 400 3RF Rx Instructions: Check BS 4 times a day. ciprofloxacin HCl 500 mg tablet 500 mg PO BID Qty: 20 0RF Levemir U-100 Insulin 100 unit/mL solution See Rx Instructions .ROUTE .COMPLEX Qty: 70 2RF Dose Instruction: inject 82 UNITS SUBCUTANEOUSLY EVERY DAY Rx Instructions: inject 50 UNITS SUBCUTANEOUSLY EVERY DAY amlodipine 5 mg tablet See Rx Instructions .ROUTE .COMPLEX Qty: 60 5RF Dose Instruction: TAKE 2 TABLETS BY MOUTH EVERY DAY Rx Instructions: TAKE 2 TABLETS BY MOUTH EVERY DAY (DME) FreeStyle Luiz 2 Sensor Kit See Rx Instructions .ROUTE .COMPLEX Qty: 6 0RF Dose Instruction: USE DIRECTED Rx Instructions: USE DIRECTED Eliquis 5 mg tablet See Rx Instructions .ROUTE .COMPLEX Qty: 180 3RF Dose Instruction: TAKE 1 TABLET BY MOUTH TWICE DAILY Rx Instructions: TAKE 1 TABLET BY MOUTH TWICE DAILY insulin lispro [Humalog KwikPen Insulin] 100 unit/mL insulin pen See Rx Instructions .ROUTE .COMPLEX Qty: 30 3RF Dose Instruction: inject 15 units SUBCUTANEOUSLY THREE TIMES DAILY. max daily DOSE 45 units Rx Instructions: inject 15 units SUBCUTANEOUSLY THREE TIMES DAILY. max daily DOSE 45 units losartan 100 mg tablet See Rx Instructions .ROUTE .COMPLEX Qty: 90 3RF Dose Instruction: TAKE 1 TABLET BY MOUTH EVERY DAY FOR KIDNEY AND BLOOD PRESSURE Rx Instructions: TAKE 1 TABLET BY MOUTH EVERY DAY FOR KIDNEY AND BLOOD PRESSURE albuterol sulfate 90 mcg/actuation HFA aerosol inhaler 2 inh inhalation Q4H PRN (Reason: shortness of breath or wheezing) Qty: 8.5 0RF <MEGHANN Hayward STDNT - Last Filed: 01/07/24 12:33> Referrals: Grover Servin, [Primary Care Provider] - 7-10 days <MEGHANN Hayward STDNT - Last Filed: 01/07/24 12:33> Discharge Diet: Cardiac <MEGHANN Hayward STDNT - Last Filed: 01/07/24 12:33> Cardiac <Tierney Sanchez MD - Last Filed: 01/07/24 13:50> Discharge Activity: Limit activity as instructed <MEGHANN HaywardNT - Last Filed: 01/07/24 12:33> Limit activity as instructed <Tierney Sanchez MD - Last Filed: 01/07/24 13:50> Patient Instructions: Pain Management, Coronary Angioplasty (DC) <MEGHANN HaywardNT - Last Filed: 01/07/24 12:33> Transfer Attestations Time Spent in Transfer Care: greater than 30 min <Tierney Sanchez MD - Last Filed: 01/07/24 13:50> Quality Metrics Clinical Quality Measures [ No reported AMI, CVA or VTE this stay] <Tierney Sanchez MD - Last Filed: 01/07/24 13:50> Coding Level of Care Code 95027 Total time (in minutes) for Discharge: 45 <Tierney Sanchez MD - Last Filed: 01/07/24 13:50> Diagnoses Atherosclerosis of [place] coronary artery of [place] heart without angina pectoris I25.10 Coronary Disease-Associated Artery/Lesion type: [place] artery Recurrent syncope R55 Intermittent atrial fibrillation I48.0 Supraventricular tachycardia by ECG I47.10
[2024-01-07] MEDS: aspirin 81 mg EC Tablet PO (13:16)
--- NOTE | 2024-01-07 16:30 | PC.NURSE ---
Report Called report to Prat[facility] Hendrix, spoke with accepting nurse Pebbles. Answered all questions at this time. Patient going to unit 3E room 3321. Number used to call report [phone].
[2024-01-07 16:54] LABS: Glucose Point of Care 234 mg/dL (70-110)
[2024-01-07] MEDS: tamsulosin 0.4 mg Capsule 0.800000000000000044 MG PO (16:55)
[2024-01-07] MEDS: atorvastatin 40 mg Tablet PO (16:55)
--- NOTE | 2024-01-07 17:15 | PC.NURSE ---
Transfer Patient picked up and transferred to [place], [place] via [facility]. Upon transfer patient is alert/oriented x4 on 2LNC. Surgical incision site to right wrist and right groin dry and intact. Right wrist & right dorsalis pedis pulses palpable upon transfer. Report called to Pebbles at [facility]. Please see previous note for further details.
== END 2024-01-07 17:15 | disposition short-term general hospital (02) | DRG 321 ==
LOC: ER 01-04 01:30 → MEDSURG 01-04 01:49 → ICU 01-05 00:53
PROVIDERS: Internal Medicine; Admitting Provider Internal Medicine; Emergency Provider Emergency Medicine; PCP Family Medicine; Visit Provider Internal Medicine
PROC: 027035Z Dilation of Coronary Artery, One Artery with Two Drug-eluting Intraluminal Devices, Percutaneous Approach (ICD-10-PCS; principal; 2024-01-06 10:00)
PROC: 027035Z Dilation of Coronary Artery, One Artery with Two Drug-eluting Intraluminal Devices, Percutaneous Approach (ICD-10-PCS; 2024-01-06 10:00)
DX: R55 Syncope and collapse (principal); I21.4 Non-ST elevation (NSTEMI) myocardial infarction; I46.9 Cardiac arrest, cause unspecified; E87.20 Acidosis, unspecified; I47.20 Ventricular tachycardia, unspecified; I25.10 Atherosclerotic heart disease of native coronary artery without angina pectoris; I48.91 Unspecified atrial fibrillation; N31.9 Neuromuscular dysfunction of bladder, unspecified; I10 Essential (primary) hypertension; F32.A Depression, unspecified; E11.59 Type 2 diabetes mellitus with other circulatory complications; E11.65 Type 2 diabetes mellitus with hyperglycemia; E78.5 Hyperlipidemia, unspecified; Z79.4 Long term (current) use of insulin; Z79.02 Long term (current) use of antithrombotics/antiplatelets; Z95.5 Presence of coronary angioplasty implant and graft; Z86.16 Personal history of COVID-19
CPT/HCPCS: 36415; 36416; 51702; 70450; 71045; 80048; 80051; 80053; 81001; 82330; 82805; 82962; 83735; 84484; 85025; 85347; 85610; 85730; 92978; 93005; 93306; 93454; 93571; 96372; 96374; 96375; 96376; 99152; 99153; 99285; A4222; C1725; C1753; C1769; C1874; C1887; C1894; C9600; G0378; J0282; J0283; J1170; J1644; J1815; J2250; J2270; J3010; J3475; J3480; J3490; J7030; Q0163; Q9967

== ENCOUNTER → 2024-01-20 12:46 | Outpatient (BNVA) | payer MEDICARE, SELFPAY | PROVIDERS: PCP Family Medicine; Visit Provider Nurse Practitioner Family | DX: I10 Essential (primary) hypertension (principal); E11.59 Type 2 diabetes mellitus with other circulatory complications; I25.10 Atherosclerotic heart disease of native coronary artery without angina pectoris; I47.10 Supraventricular tachycardia, unspecified; Z95.810 Presence of automatic (implantable) cardiac defibrillator; Z79.01 Long term (current) use of anticoagulants; Z79.4 Long term (current) use of insulin | CPT/HCPCS: 93298; 99214 ==

== ENCOUNTER → 2024-03-03 12:32 | Outpatient (BNVA) | payer MEDICARE, SELFPAY | PROVIDERS: PCP Family Medicine; Visit Provider Internal Medicine Cardiovascular Disease | DX: R06.02 Shortness of breath (principal); Z79.01 Long term (current) use of anticoagulants; I48.91 Unspecified atrial fibrillation; E78.5 Hyperlipidemia, unspecified; N18.9 Chronic kidney disease, unspecified | CPT/HCPCS: 80048; 80076; 84443; 85025; 99214 ==

== ENCOUNTER → 2024-04-07 09:02 | Outpatient (BNVA) | payer MEDICARE, SELFPAY | PROVIDERS: PCP Family Medicine; Visit Provider Internal Medicine | DX: E11.65 Type 2 diabetes mellitus with hyperglycemia (principal); E78.1 Pure hyperglyceridemia; E11.59 Type 2 diabetes mellitus with other circulatory complications; I25.10 Atherosclerotic heart disease of native coronary artery without angina pectoris; Z79.4 Long term (current) use of insulin | CPT/HCPCS: 99214 ==

== ENCOUNTER → 2024-04-20 09:39 | Outpatient (BNVA) | payer MEDICARE, SELFPAY | PROVIDERS: PCP Family Medicine; Visit Provider Family Medicine | DX: E03.9 Hypothyroidism, unspecified (principal) | CPT/HCPCS: 84443 ==

== ENCOUNTER 2024-08-04 10:25 | Outpatient (CLI) | payer MEDICARE, SELFPAY ==
[2024-08-04 11:06] LABS: Alanine Aminotransferase 48 U/L (0-41); Albumin Level 4.3 g/dL (3.5-5.2); Alkaline Phosphatase 142 U/L (40-130); Anion Gap 18.7 (5-19); Aspartate Amino Transferase 32 U/L (0-40); Blood Urea Nitrogen 20 mg/dL (8-23); Calcium 9.2 mg/dL (8.5-10.5); Carbon Dioxide 23 mmol/L (22-29); Chloride 100 mmol/L (98-107); Chol HDL Ratio 4.12 mg/dL (1.0-5.00); Cholesterol 169 mg/dL (0-200); Globulin 2.4 g/dL (1.3-4.6); Glucose 276 mg/dL (65-115); HDL Cholesterol 41 mg/dL (60-100); LDL Cholesterol Calculated 80 mg/dL (50-129); LDL HDL Ratio 1.95 RATIO (0.00-3.22); Osmolality Calculated 294 mOsm/kg (285-295); Potassium 5.7 mmol/L (3.5-5.1); Sodium 136 mmol/L (136-145); Total Bilirubin 0.4 mg/dL (0.15-1.2); Total Protein 6.7 g/dL (6.6-8.7); Triglycerides 241 mg/dL (0-150)
[2024-08-04 11:10] LABS: Estmated Average Glucose 203; Hemoglobin A1C 8.7 % (4.0-6.0)
[2024-08-04 11:11] LABS: Creatinine Urine, Random 64 mg/dL (39-259); Microalbumin Random Urine 7 ug/dL (0-20)
[2024-08-04 11:16] LABS: Microalbum Creatinine Ratio Ur 109 mg/dL (0-20)
== END 2024-08-04 10:26 | disposition home or self-care (01) ==
PROVIDERS: PCP Family Medicine; Visit Provider Internal Medicine
DX: E11.65 Type 2 diabetes mellitus with hyperglycemia (principal); E78.1 Pure hyperglyceridemia
CPT/HCPCS: 36415; 80053; 80061; 82044; 83036

== ENCOUNTER 2024-08-07 08:46 | Outpatient (CLI) | payer MEDICARE, SELFPAY ==
[2024-08-07 09:56] LABS: Blood Urea Nitrogen 30 mg/dL (8-23); Calcium 9.2 mg/dL (8.5-10.5); Carbon Dioxide 19 mmol/L (22-29); Chloride 100 mmol/L (98-107); Glucose 328 mg/dL (65-115); Osmolality Calculated 297 mOsm/kg (285-295); Sodium 134 mmol/L (136-145)
== END 2024-08-07 08:47 | disposition home or self-care (01) ==
LOC: LAB 08:47
PROVIDERS: Internal Medicine; PCP Family Medicine; Visit Provider Family Medicine
DX: E11.65 Type 2 diabetes mellitus with hyperglycemia (principal); E78.1 Pure hyperglyceridemia
CPT/HCPCS: 80048

== ENCOUNTER → 2024-08-10 09:41 | Outpatient (BNVA) | payer MEDICARE, SELFPAY | PROVIDERS: PCP Family Medicine; Visit Provider Internal Medicine | DX: E11.59 Type 2 diabetes mellitus with other circulatory complications (principal); I25.10 Atherosclerotic heart disease of native coronary artery without angina pectoris; E78.1 Pure hyperglyceridemia; E11.65 Type 2 diabetes mellitus with hyperglycemia; E87.5 Hyperkalemia; N17.9 Acute kidney failure, unspecified; Z79.4 Long term (current) use of insulin | CPT/HCPCS: 99214 ==

== ENCOUNTER 2024-09-10 09:35 | Outpatient (CLI) | payer MEDICARE, SELFPAY ==
[2024-09-10 10:48] LABS: Alanine Aminotransferase 32 U/L (0-41); Albumin Level 4.5 g/dL (3.5-5.2); Alkaline Phosphatase 118 U/L (40-130); Blood Urea Nitrogen 18 mg/dL (8-23); Calcium 9.2 mg/dL (8.5-10.5); Carbon Dioxide 24 mmol/L (22-29); Chloride 101 mmol/L (98-107); Chol HDL Ratio 3.95 mg/dL (1.0-5.00); Cholesterol 162 mg/dL (0-200); Free T4 Free Thyroxine 1.38 ng/dL (0.82-1.77); Globulin 2.2 g/dL (1.3-4.6); Glucose 236 mg/dL (65-115); HDL Cholesterol 41 mg/dL (60-100); LDL Cholesterol Calculated 84 mg/dL (50-129); LDL HDL Ratio 2.05 RATIO (0.00-3.22); Osmolality Calculated 294 mOsm/kg (285-295); Sodium 137 mmol/L (136-145); Thyroid Stimulating Hormone 11.24 uIU/mL (0.27-4.20); Total Bilirubin 0.5 mg/dL (0.15-1.2); Total Protein 6.7 g/dL (6.6-8.7); Triglycerides 186 mg/dL (0-150)
[2024-09-10 10:53] LABS: Anion Gap 17.1 (5-19); Aspartate Amino Transferase 27 U/L (0-40); Potassium 5.1 mmol/L (3.5-5.1)
[2024-09-10 10:54] LABS: Estmated Average Glucose 183
[2024-09-10 10:54] LABS: Creatinine Urine, Random 130 mg/dL (39-259); Microalbumin Random Urine 18 ug/dL (0-20)
[2024-09-10 10:55] LABS: Microalbum Creatinine Ratio Ur 138 mg/dL (0-20)
== END 2024-09-10 09:36 | disposition home or self-care (01) ==
PROVIDERS: Internal Medicine; PCP Family Medicine; Visit Provider Family Medicine
DX: E11.65 Type 2 diabetes mellitus with hyperglycemia (principal); E87.5 Hyperkalemia; E78.1 Pure hyperglyceridemia
CPT/HCPCS: 36415; 80053; 80061; 82044; 83036; 84439; 84443

== ENCOUNTER → 2024-09-14 11:00 | Outpatient (BNVA) | payer MEDICARE, SELFPAY | PROVIDERS: PCP Family Medicine; Visit Provider Internal Medicine Cardiovascular Disease | DX: I25.10 Atherosclerotic heart disease of native coronary artery without angina pectoris (principal); E78.5 Hyperlipidemia, unspecified; E11.59 Type 2 diabetes mellitus with other circulatory complications; I47.20 Ventricular tachycardia, unspecified; E78.1 Pure hyperglyceridemia; E11.65 Type 2 diabetes mellitus with hyperglycemia; N17.9 Acute kidney failure, unspecified; I48.0 Paroxysmal atrial fibrillation; I10 Essential (primary) hypertension | CPT/HCPCS: 99214 ==

== ENCOUNTER 2024-11-03 10:12 | Outpatient (CLI) | payer MEDICARE, SELFPAY ==
[2024-11-03 11:04] LABS: Basophils % 0.4 %; Eosinophils # 0.1 10^3/uL (0.0-0.8); Eosinophils % 0.6 %; Lymphocytes # 1.3 10^3/uL (0.8-4.8); Lymphocytes % 13.4 %; Mean Corpuscular HGB Conc 34.2 g/dL (30-55); Mean Corpuscular Volume 87.8 fl (82-101); Mean Platelet Volume 9.7 fL (7.4-10.4); Monocytes # 0.8 10^3/uL (0.2-0.9); Monocytes % 8.9 %; Neutrophils # 7.04 10^3/uL (1.8-7.7); Neutrophils % 74.7 %; Nucleated Red Blood Cells % 0 %; Platelet Count 274 10^3/cmm (157-399); Red Cell Distribution Width 12.8 % (12.1-15.1); White Blood Count 9.43 10^3/uL (3.29-11.43)
[2024-11-03 11:19] LABS: Estmated Average Glucose 197; Hemoglobin A1C 8.5 % (4.0-6.0)
[2024-11-03 11:30] LABS: Creatinine Urine, Random 140 mg/dL (39-259); Microalbumin Random Urine 18 ug/dL (0-20)
[2024-11-03 11:31] LABS: Microalbum Creatinine Ratio Ur 129 mg/dL (0-20)
[2024-11-03 11:33] LABS: Alanine Aminotransferase 31 U/L (0-41); Albumin Level 3.9 g/dL (3.5-5.2); Alkaline Phosphatase 133 U/L (40-130); Anion Gap 16.4 (5-19); Aspartate Amino Transferase 24 U/L (0-40); Blood Urea Nitrogen 23 mg/dL (8-23); Calcium 9.1 mg/dL (8.5-10.5); Carbon Dioxide 22 mmol/L (22-29); Chloride 101 mmol/L (98-107); Chol HDL Ratio 3.69 mg/dL (1.0-5.00); Cholesterol 144 mg/dL (0-200); Free T4 Free Thyroxine 1.51 ng/dL (0.82-1.77); Globulin 3.1 g/dL (1.3-4.6); Glucose 167 mg/dL (65-115); HDL Cholesterol 39 mg/dL (60-100); LDL Cholesterol Calculated 83 mg/dL (50-129); Osmolality Calculated 287 mOsm/kg (285-295); Potassium 4.4 mmol/L (3.5-5.1); Sodium 135 mmol/L (136-145); Thyroid Stimulating Hormone 5.97 uIU/mL (0.27-4.20); Total Bilirubin 0.4 mg/dL (0.15-1.2); Triglycerides 112 mg/dL (0-150); VLDL Cholestrol Calculation 22 mg/dL (0-30)
== END 2024-11-03 10:13 | disposition home or self-care (01) ==
PROVIDERS: PCP Family Medicine; Visit Provider Internal Medicine
DX: I10 Essential (primary) hypertension (principal); E11.59 Type 2 diabetes mellitus with other circulatory complications; I25.10 Atherosclerotic heart disease of native coronary artery without angina pectoris; E78.1 Pure hyperglyceridemia; Z95.810 Presence of automatic (implantable) cardiac defibrillator; E11.65 Type 2 diabetes mellitus with hyperglycemia; E03.9 Hypothyroidism, unspecified; I47.20 Ventricular tachycardia, unspecified; N17.9 Acute kidney failure, unspecified; I48.0 Paroxysmal atrial fibrillation
CPT/HCPCS: 36415; 80053; 80061; 82044; 83036; 84439; 84443; 85025

== ENCOUNTER → 2024-11-04 09:32 | Outpatient (BNVA) | payer MEDICARE, SELFPAY | PROVIDERS: PCP Family Medicine; Visit Provider Internal Medicine | DX: E11.65 Type 2 diabetes mellitus with hyperglycemia (principal); E11.59 Type 2 diabetes mellitus with other circulatory complications; I25.10 Atherosclerotic heart disease of native coronary artery without angina pectoris; E78.1 Pure hyperglyceridemia; E87.5 Hyperkalemia; N17.9 Acute kidney failure, unspecified; E03.9 Hypothyroidism, unspecified | CPT/HCPCS: 99214 ==

== ENCOUNTER 2025-01-27 10:29 | Outpatient (CLI) | payer MEDICARE, SELFPAY ==
[2025-01-27 11:20] LABS: Estmated Average Glucose 174; Hemoglobin A1C 7.7 % (4.0-6.0)
[2025-01-27 11:38] LABS: Creatinine Urine, Random 73 mg/dL (39-259); Microalbumin Random Urine 6 ug/dL (0-20)
[2025-01-27 11:40] LABS: Microalbum Creatinine Ratio Ur 82 mg/dL (0-20)
[2025-01-27 11:49] LABS: Alanine Aminotransferase 32 U/L (0-41); Albumin Level 4.2 g/dL (3.5-5.2); Alkaline Phosphatase 128 U/L (40-130); Anion Gap 17.8 (5-19); Aspartate Amino Transferase 26 U/L (0-40); Blood Urea Nitrogen 22 mg/dL (8-23); Calcium 8.8 mg/dL (8.5-10.5); Carbon Dioxide 23 mmol/L (22-29); Chloride 103 mmol/L (98-107); Free T4 Free Thyroxine 1.52 ng/dL (0.82-1.77); Globulin 2.5 g/dL (1.3-4.6); Glucose 221 mg/dL (65-115); Osmolality Calculated 298 mOsm/kg (285-295); Potassium 4.8 mmol/L (3.5-5.1); Sodium 139 mmol/L (136-145); Thyroid Stimulating Hormone 8.14 uIU/mL (0.27-4.20); Total Bilirubin 0.5 mg/dL (0.15-1.2); Total Protein 6.7 g/dL (6.6-8.7)
== END 2025-01-27 10:30 | disposition home or self-care (01) ==
PROVIDERS: PCP Family Medicine; Visit Provider Internal Medicine
DX: E11.59 Type 2 diabetes mellitus with other circulatory complications (principal); I25.10 Atherosclerotic heart disease of native coronary artery without angina pectoris; E78.1 Pure hyperglyceridemia; E87.5 Hyperkalemia; E11.65 Type 2 diabetes mellitus with hyperglycemia; N17.9 Acute kidney failure, unspecified; E03.9 Hypothyroidism, unspecified
CPT/HCPCS: 80053; 82044; 83036; 84439; 84443

== ENCOUNTER → 2025-02-01 09:04 | Outpatient (BNVA) | payer MEDICARE, SELFPAY | PROVIDERS: PCP Family Medicine; Visit Provider Internal Medicine | DX: E11.65 Type 2 diabetes mellitus with hyperglycemia (principal); E78.1 Pure hyperglyceridemia; E11.59 Type 2 diabetes mellitus with other circulatory complications; I25.10 Atherosclerotic heart disease of native coronary artery without angina pectoris; E03.9 Hypothyroidism, unspecified; E87.5 Hyperkalemia | CPT/HCPCS: 99214 ==

== ENCOUNTER → 2025-03-15 10:43 | Outpatient (BNVA) | payer MEDICARE, SELFPAY | PROVIDERS: PCP Family Medicine; Visit Provider Nurse Practitioner Family | DX: I48.0 Paroxysmal atrial fibrillation (principal); Z79.01 Long term (current) use of anticoagulants; I25.10 Atherosclerotic heart disease of native coronary artery without angina pectoris; I49.9 Cardiac arrhythmia, unspecified; E78.5 Hyperlipidemia, unspecified; N17.9 Acute kidney failure, unspecified; E11.65 Type 2 diabetes mellitus with hyperglycemia; Z79.4 Long term (current) use of insulin; I10 Essential (primary) hypertension; Z95.810 Presence of automatic (implantable) cardiac defibrillator; Z95.5 Presence of coronary angioplasty implant and graft | CPT/HCPCS: 99213 ==

== ENCOUNTER → 2025-03-17 17:08 | Outpatient (BNVA) | payer MEDICARE, SELFPAY | PROVIDERS: PCP Family Medicine; Visit Provider Internal Medicine Cardiovascular Disease | DX: Z45.02 Encounter for adjustment and management of automatic implantable cardiac defibrillator (principal) | CPT/HCPCS: 93296 ==

== ENCOUNTER 2025-04-29 12:28 | Outpatient (CLI) | payer MEDICARE, SELFPAY ==
[2025-04-29 13:22] LABS: Alanine Aminotransferase 35 U/L (0-41); Albumin Level 4.0 g/dL (3.5-5.2); Alkaline Phosphatase 132 U/L (40-130); Anion Gap 17.6 (5-19); Aspartate Amino Transferase 25 U/L (0-40); Blood Urea Nitrogen 22 mg/dL (8-23); Calcium 8.8 mg/dL (8.5-10.5); Carbon Dioxide 21 mmol/L (22-29); Chloride 105 mmol/L (98-107); Cholesterol 138 mg/dL (0-200); Globulin 2.3 g/dL (1.3-4.6); Glucose 369 mg/dL (65-115); HDL Cholesterol 37 mg/dL (60-100); Osmolality Calculated 306 mOsm/kg (285-295); Potassium 4.6 mmol/L (3.5-5.1); Sodium 139 mmol/L (136-145); Total Protein 6.3 g/dL (6.6-8.7); Triglycerides 180 mg/dL (0-150)
[2025-04-29 13:24] LABS: Estmated Average Glucose 194; Hemoglobin A1C 8.4 % (4.0-6.0)
[2025-04-29 13:27] LABS: Creatinine Urine, Random 92 mg/dL (39-259)
[2025-04-29 13:29] LABS: Microalbum Creatinine Ratio Ur 109 mg/dL (0-20)
== END 2025-04-29 12:29 | disposition home or self-care (01) ==
PROVIDERS: PCP Family Medicine; Visit Provider Internal Medicine
DX: E78.1 Pure hyperglyceridemia (principal); E11.59 Type 2 diabetes mellitus with other circulatory complications; I25.10 Atherosclerotic heart disease of native coronary artery without angina pectoris; E11.65 Type 2 diabetes mellitus with hyperglycemia; E03.9 Hypothyroidism, unspecified; N17.9 Acute kidney failure, unspecified; E87.5 Hyperkalemia
CPT/HCPCS: 80053; 80061; 82044; 83036

== ENCOUNTER → 2025-05-04 09:06 | Outpatient (BNVA) | payer MEDICARE, SELFPAY | PROVIDERS: PCP Family Medicine; Visit Provider Internal Medicine | DX: E11.59 Type 2 diabetes mellitus with other circulatory complications (principal); E78.1 Pure hyperglyceridemia; E11.65 Type 2 diabetes mellitus with hyperglycemia; E87.5 Hyperkalemia; E03.9 Hypothyroidism, unspecified | CPT/HCPCS: 36415; 84439; 84443; 99214 ==

== ENCOUNTER 2025-08-02 09:57 | Outpatient (CLI) | payer MEDICARE, SELFPAY ==
[2025-08-02 11:22] LABS: Creatinine Urine, Random 54 mg/dL (39-259); Microalbum Creatinine Ratio Ur 241 mg/dL (0-20)
[2025-08-02 15:36] LABS: Cholesterol 178 mg/dL (0-200); HDL Cholesterol 48 mg/dL (60-100); Triglycerides 147 mg/dL (0-150)
[2025-08-02 15:38] LABS: Estmated Average Glucose 183; Hemoglobin A1C 8.0 % (4.0-6.0)
== END 2025-08-02 09:58 | disposition home or self-care (01) ==
LOC: LAB 09:58
PROVIDERS: PCP Family Medicine; Visit Provider Internal Medicine
DX: E11.65 Type 2 diabetes mellitus with hyperglycemia (principal); E03.9 Hypothyroidism, unspecified
CPT/HCPCS: 80061; 82044; 83036; 84681

== ENCOUNTER 2025-08-02 10:37 | Emergency (ER) | payer MEDICARE, SELFPAY ==
--- NOTE | 2025-08-02 10:39 | ECG_ITS ---
[facility] 2025[facility]02 Pat Name: Chen Carson Department: Room: Gender: Male Claims Coordinator: : 1950 Requested By: Jonah Montenegro Order Number: [id number] Jb MD: Reema Zhou M.D. Measurements Intervals Innis Rate: 64 P: 147 LA: 212 QRS: -14 QRSD: 133 T: 29 QT: 461 QTc: 478 Interpretive Statements ELECTRONIC ATRIAL PACEMAKER INTRAVENTRICULAR CONDUCTION DELAY [130+ ms QRS DURATION] SEPTAL MYOCARDIAL INFARCTION , PROBABLY OLD [40+ ms Q WAVE IN V1/V2] Compared to ECG 01/05/2024 06:27:36 Intraventricular conduction delay now present Myocardial infarct finding now present Sinus bradycardia no longer present T-wave abnormality no longer present Possible ischemia no longer present Electronically Signed On 08-03-2025 20:03:52 TALENT ACQUISITION MANAGER by Reema Zhou M.D. [email or web address]
--- NOTE | 2025-08-02 10:39 | W.ED.GENADLT ---
HPI - General Adult General: Chief complaint: Altered Mental Status Stated complaint: rapid Time Seen by Provider: 08/02/25 10:38 History of Present Illness: 75-year-old male presents emergency room from the OB. Rapid response was called as blood sugar was 54 when he first arrived here. He reports having taking his morning insulin and not eaten normally. He is somewhat lethargic but arouses to verbal stimuli. He denies any chest or abdominal pain denies any recent illness. Patient has a history of diabetes mellitus A-fib with RVR he is on anticoagulation. Associated symptoms: Deny chest pain, dyspnea or rash Related Data Previous Rx's ?Medication ?Instructions ?Recorded blood sugar diagnostic (ReliOn #400 ea 11/14/21 Prime Test Strips) speedy cath soft 16/5.3 #120 ea 08/20/23 tamsulosin 0.4 mg capsule (Flomax) 0.8 mg (2 x 0.4 mg) PO DAILY #90 08/20/23 caps blood-glucose sensor (FreeStyle #9 ea 03/13/24 Luiz 3 Sensor device) blood-glucose,clock and watch hands mounter,cont #1 ea 03/13/24 (FreeStyle Luiz 3 [place]) flash glucose scanning reader #1 ea 03/13/24 (FreeStyle Luiz 2 [place]) flash glucose sensor (FreeStyle #2 kits 03/13/24 Luiz 2 Sensor kit) atorvastatin 80 mg tablet 80 mg PO DAILY #90 tabs 08/24/24 insulin lispro 100 unit/mL See Rx Instructions .Route 11/09/24 subcutaneous pen (Humalog KwikPen .COMPLEX #30 mL (U-100) Insulin) losartan 100 mg tablet See Rx Instructions .Route 12/30/24 .COMPLEX #90 tabs apixaban 5 mg tablet (Eliquis) See Rx Instructions .Route 01/04/25 .COMPLEX #180 tabs pantoprazole 40 mg tablet,delayed 40 mg PO DAILY #90 tabs 02/19/25 release amlodipine 5 mg tablet See Rx Instructions .Route 03/15/25 .COMPLEX #90 tabs clopidogrel 75 mg tablet See Rx Instructions .Route 03/19/25 .COMPLEX #30 tabs blood-glucose sensor (FreeStyle #6 ea 03/25/25 Luiz 3 Plus Sensor device) carvedilol 6.25 mg tablet See Rx Instructions .Route 04/23/25 .COMPLEX #180 tabs duloxetine 30 mg capsule,delayed See Rx Instructions .Route 05/04/25 release .COMPLEX #60 caps spironolactone 25 mg tablet See Rx Instructions .Route 05/14/25 .COMPLEX #90 tabs levothyroxine 100 mcg tablet See Rx Instructions .Route 05/18/25 .COMPLEX #30 tabs insulin degludec 100 unit/mL (3 40 unit (0.4 mL) SUBCUT DAILY #45 05/27/25 mL) subcutaneous pen (Tresiba mL FlexTouch U-100 insulin) amiodarone 200 mg tablet See Rx Instructions .Route 07/02/25 .COMPLEX #180 tabs Allergies Allergy/AdvReac Type Severity Reaction Status Date / Time acetaminophen (From [facility] Allergy pt states Verified 03/15/25 11:03 with Codeine) he goes crazy codeine (From [facility] with Allergy pt states Verified 03/15/25 11:03 Codeine) he goes crazy Review of Systems Const: Denies: fever(s) or chills Card: Denies: chest pain Resp: Denies: dyspnea GI: Denies: abdominal pain : Denies: dysuria, urinary frequency or urinary urgency Musc: Denies: neck pain or back pain Skin/Breast: Denies: rash PFSH ED PFSH: Medical History Enrolled in chronic care management please do not remove from active ICD (implantable cardioverter-defibrillator) in place Medtronic [place] ICD implanted 01/10/2024 Leg pain Abrasion Neurogenic bladder Syncope Internal hemorrhoid Rectal bleeding Hyponatremia COVID-19 Leukocytosis Intracranial arteriosclerosis Syncope Hypertension Depression Type 2 diabetes mellitus Surgical History History of intravascular stent placement H/O inguinal hernia repair History of appendectomy Family History Mother Cancer breast cancer Diabetes Hypertension Father Hypertension CAD (coronary artery disease) Social History Smoking and tobacco/nicotine status: never used tobacco/nicotine Second hand smoke exposure: Yes Alcohol intake: never Caregiver/support person: No Lives independently: Yes Household members: spouse Marital status: Current occupational status: retired Physical Exam Const: GENERAL APPEARANCE: cooperative and lethargic ORIENTATION/CONSCIOUSNESS: Yes oriented to person, Yes oriented to place, Yes oriented to time and Yes lethargic OTHER: Patient diaphoretic HENMT: COMMON NORMALS: normocephalic, atraumatic and hearing grossly normal bilaterally HEAD & SCALP: normocephalic and atraumatic Resp: COMMON NORMALS: normal respiratory effort, No retractions, No use of accessory muscles and clear to auscultation bilaterally AUSCULTATION: clear to auscultation bilaterally Cardio: COMMON NORMALS: regular rate, regular rhythm and No murmurs present (Cardio) RATE: regular rate RHYTHM: regular rhythm GI: COMMON NORMALS: Soft to palpation and No hepatosplenomegaly present AUSCULTATION: Yes normoactive bowel sounds PALPATION: Yes Soft to palpation, No Tenderness to palpation present (GI), No Guarding due to palpation present (GI) and Yes No hepatosplenomegaly present Extremity: COMMON NORMALS: normal to inspection, capillary refill normal, no clubbing, cyanosis or edema, no calf tenderness and no pedal edema Neuro: SENSORIUM/ORIENTATION: Yes oriented to person, Yes oriented to place, Yes oriented to time and Yes lethargic Skin: COMMON NORMALS: no rashes or lesions noted GENERAL SKIN EXAM: no rashes or lesions noted Course Vital Signs: Vital signs: Vital Signs Temperature 97.9 F 08/02/25 10:52 Pulse Rate 60 08/02/25 12:45 Respiratory Rate 219 H 08/02/25 12:45 Blood Pressure 128/76 08/02/25 12:45 Pulse Oximetry 99 08/02/25 12:45 Oxygen Delivery Me thod Room Air 08/02/25 12:45 MDM - General Adult Medical Decision Making Medical decision making Social determinants: None I reviewed the patient's medical record. I reviewed the patient's current home meds Alternate historians: Differential diagnosis: Hypoglycemia versus CVA versus metabolic encephalopathy Lab Review: Initial serum glucose shows hypoglycemia with a glucose of 40 6 repeat bedside glucose improved. CBC shows mild leukocytosis likely from demargination. There is no sign of acute infection Imaging:None Assessment of risk: Level of risk: Moderate Hospitalization considerations: Consider hospitalization for stabilization of blood sugar if does not improve with glucagon and IV fluids Reexamination: Improved awake alert ambulatory blood sugars have maintained above 150 consistently. Assessment and plan: Patient has hypoglycemia from inadvertent dosage of his short acting insulin where he had meant to give himself his long-acting dose. When he first arrived he was severely hypoglycemic and improved after glucagon and IV D10. He was able to eat and blood sugars maintained well. He is ambulatory without difficulty we will discharge him home continue to monitor blood sugar for the next 6 to 8 hours Medical Records I reviewed the patient's medical records. Lab Data I reviewed the patient's lab results. 08/02/25 10:48 08/02/25 10:48 Laboratory Results WBC 11.45 10^3/uL (3.29-11.43) H 08/02/25 10:48 RBC 4.94 10^6/uL (3.85-5.65) 08/02/25 10:48 Hgb 14.90 g/dL (11.27-16.99) 08/02/25 10:48 Hct 42.2 % (37-53) 08/02/25 10:48 MCV 85.4 fl (82-101) 08/02/25 10:48 MCH 30.2 pg (27-33) 08/02/25 10:48 MCHC 35.3 g/dL (30-55) 08/02/25 10:48 RDW 13.2 % (12.1-15.1) 08/02/25 10:48 Plt Count 343 10^3/cmm (157-399) 08/02/25 10:48 MPV 9.1 fL (7.4-10.4) 08/02/25 10:48 Neut % (Auto) 59.0 % 08/02/25 10:48 Lymph % (Auto) 31.5 % 08/02/25 10:48 Laurel % (Auto) 7.1 % 08/02/25 10:48 Eos % (Auto) 1.5 % 08/02/25 10:48 Baso % (Auto) 0.3 % 08/02/25 10:48 Neut # (Auto) 6.75 10^3/uL (1.8-7.7) 08/02/25 10:48 Lymph # (Auto) 3.6 10^3/uL (0.8-4.8) 08/02/25 10:48 Laurel # (Auto) 0.8 10^3/uL (0.2-0.9) 08/02/25 10:48 Eos # (Auto) 0.2 10^3/uL (0.0-0.8) 08/02/25 10:48 Baso # (Auto) 0.0 10^3/uL (0.0-0.1) 08/02/25 10:48 Nucleated RBC % (auto) 0 % 08/02/25 10:48 Nucleated RBCs # 0.0 /100WBC 08/02/25 10:48 Sodium 143 mmol/L (136-145) 08/02/25 10:48 Potassium 3.6 mmol/L (3.5-5.1) 08/02/25 10:48 Chloride 104 mmol/L (98-107) 08/02/25 10:48 Carbon Dioxide 24 mmol/L (22-29) 08/02/25 10:48 Anion Gap 18.6 (5-19) 08/02/25 10:48 BUN 18 mg/dL (8-23) 08/02/25 10:48 Creatinine 1.0 mg/dL (0.7-1.2) 08/02/25 10:48 GFR Calculation Not Reportable 08/02/25 10:48 Glucose 46 mg/dL (65-115) L 08/02/25 10:48 POC Glucose 172 mg/dL (70-110) H 08/02/25 12:39 Calculated Osmolality 295 mOsm/kg (285-295) 08/02/25 10:48 Calcium 9.9 mg/dL (8.5-10.5) 08/02/25 10:48 Total Bilirubin 0.5 mg/dL (0.15-1.2) 08/02/25 10:48 AST 19 U/L (0-40) 08/02/25 10:48 ALT 26 U/L (0-41) 08/02/25 10:48 Alkaline Phosphatase 152 U/L (40-130) H 08/02/25 10:48 Total Protein 7.4 g/dL (6.6-8.7) 08/02/25 10:48 Albumin 5.1 g/dL (3.5-5.2) 08/02/25 10:48 Globulin 2.3 g/dL (1.3-4.6) 08/02/25 10:48 No radiology studies performed this visit EKG Data EKG 1: I personally reviewed and interpreted this EKG as follows: Interpretation: EKG 08/02/2025 11:02 AM paced rhythm with a rate of 64. LA interval 212 QTc 471 no acute changes. No changes meeting Sgarbossa's criteria. Compared to EKG done 06/18/2022 rhythm is now paced. Discharge Plan Discharge Patient Disposition: Home Clinical Impression: Hypoglycemia Condition: Stable Prescriptions: No Action Flomax 0.4 mg capsule 0.8 mg PO DAILY Qty: 90 3RF (DME) speedy cath soft 16/5.3 See Rx Instructions .Route .MEDSUPPLY Qty: 120 5RF Rx Instructions: As directed 99 months amlodipine 5 mg tablet See Rx Instructions .ROUTE .COMPLEX Qty: 90 1RF Dose Instruction: TAKE 1 TABLET BY MOUTH EVERY DAY Rx Instructions: TAKE 1 TABLET BY MOUTH EVERY DAY (DME) ReliOn Prime Test Strips Strip See Rx Instructions .Route Qty: 400 3RF Rx Instructions: Check BS 4 times a day. (DME) FreeStyle Luiz 2 Sensor Kit See Rx Instructions .ROUTE .COMPLEX Qty: 2 0RF Dose Instruction: USE DIRECTED Rx Instructions: USE DIRECTED (DME) FreeStyle Luiz 2 [place] Misc See Rx Instructions .Route Qty: 1 0RF Rx Instructions: As directed (DME) FreeStyle Luiz 3 Sensor Device See Rx Instructions .Route Qty: 9 1RF Rx Instructions: As directed (DME) FreeStyle Luiz 3 [place] Misc See Rx Instructions .Route Qty: 1 0RF Rx Instructions: As directed atorvastatin 80 mg tablet 80 mg PO DAILY Qty: 90 3RF Rx Instructions: Take one tablet by mouth daily. insulin lispro [Humalog KwikPen Insulin] 100 unit/mL insulin pen See Rx Instructions .ROUTE .COMPLEX Qty: 30 3RF Dose Instruction: inject 15 units SUBCUTANEOUSLY THREE TIMES DAILY. max daily DOSE 45 units Rx Instructions: inject 15 units SUBCUTANEOUSLY THREE TIMES DAILY. max daily DOSE 45 units losartan 100 mg tablet See Rx Instructions .ROUTE .COMPLEX Qty: 90 3RF Dose Instruction: TAKE 1 TABLET BY MOUTH EVERY DAY FOR KIDNEY AND BLOOD PRESSURE Rx Instructions: TAKE 1 TABLET BY MOUTH EVERY DAY FOR KIDNEY AND BLOOD PRESSURE Eliquis 5 mg tablet See Rx Instructions .ROUTE .COMPLEX Qty: 180 3RF Dose Instruction: TAKE 1 TABLET BY MOUTH TWICE DAILY Rx Instructions: TAKE 1 TABLET BY MOUTH TWICE DAILY pantoprazole 40 mg tablet,delayed release (DR/EC) 40 mg PO DAILY Qty: 90 3RF clopidogrel 75 mg tablet See Rx Instructions .ROUTE .COMPLEX Qty: 30 6RF Dose Instruction: TAKE 1 TABLET BY MOUTH EVERY DAY Rx Instructions: TAKE 1 TABLET BY MOUTH EVERY DAY (DME) FreeStyle Luiz 3 Plus Sensor Device See Rx Instructions .ROUTE .COMPLEX Qty: 6 1RF Dose Instruction: CHANGE sensor every 15 DAYS Rx Instructions: CHANGE sensor every 15 DAYS carvedilol 6.25 mg tablet See Rx Instructions .ROUTE .COMPLEX Qty: 180 3RF Dose Instruction: TAKE 1 TABLET BY MOUTH TWICE DAILY with meal/food Rx Instructions: TAKE 1 TABLET BY MOUTH TWICE DAILY with meal/food duloxetine 30 mg capsule,delayed release(DR/EC) See Rx Instructions .ROUTE .COMPLEX Qty: 60 5RF Dose Instruction: take 1 capsule BY MOUTH TWICE DAILY FOR DEPRESSION AND MOOD Rx Instructions: take 1 capsule BY MOUTH TWICE DAILY FOR DEPRESSION AND MOOD spironolactone 25 mg tablet See Rx Instructions .ROUTE .COMPLEX Qty: 90 3RF Dose Instruction: TAKE ONE TABLET BY MOUTH EVERY DAY Rx Instructions: TAKE ONE TABLET BY MOUTH EVERY DAY levothyroxine 100 mcg tablet See Rx Instructions .ROUTE .COMPLEX Qty: 30 3RF Dose Instruction: TAKE 1 TABLET BY MOUTH EVERY DAY Rx Instructions: TAKE 1 TABLET BY MOUTH EVERY DAY insulin degludec [Tresiba FlexTouch U-100] 100 unit/mL (3 mL) insulin pen 40 unit SUBCUT DAILY Qty: 45 1RF amiodarone 200 mg tablet See Rx Instructions .ROUTE .COMPLEX Qty: 180 3RF Dose Instruction: TAKE 1 TABLET BY MOUTH TWICE DAILY Rx Instructions: TAKE 1 TABLET BY MOUTH TWICE DAILY Discharge Orders: Discharge ED (Routine); Ordered 08/02/25 Ordered By: Jonah Harris Referrals: Grover Servin DO [Primary Care Provider, Family Practice] Discharge Diet: Diabetic Discharge Activity: Resume usual activity Patient Instructions: Altered Mental Status (ED), Opioid Safety, Pain Management, Patient Portal & Ashley Instructions Activity Restrictions/Additional Instructions: Thank you for choosing [facility] for your healthcare needs today. It is very important that you follow up as instructed or that you return to the Emergency Department should you have concerns or if your condition changes or worsens in any way. Emergency department visits are focused on emergent conditions, in some cases you may require further evaluation on an outpatient basis. You were seen in the emergency room for a episode of hypoglycemia. You reported that you had accidentally given yourself a short acting insulin rather than your usual long-acting insulin dose. You are given medicines to raise your glucose as well as IV glucose. Eat and we monitored you for 2 hours your blood sugar remained stable. Will discharge home continue to monitor your blood sugar every 2 hours for the next 6 to 8 hours. If you have any difficulties you can return to the emergency room. (Please note that included in your discharge packet is information concerning opioid safety and pain management. This information is given to all patients were discharged from the ER regardless of their discharge diagnosis or the medicines they usually take or are prescribed.) Print Language: Pashto Coding Level of Care Code ED Director Of Acquisition Marketing for Carlos Chance
[2025-08-02] MEDS: glucagon 1 mg/mL KIT 1 mL IM (10:48)
[2025-08-02 10:52] VITALS: BP 214/129; PULSE 66; RESP 22; TEMP 36.6; O2SAT 96; BMI 29.0
[2025-08-02 10:55] VITALS: BP 206/96
[2025-08-02 11:08] LABS: Hematocrit 42.2 % (37-53); Hemoglobin 14.90 g/dL (11.27-16.99); Mean Corpuscular HGB Conc 35.3 g/dL (30-55); Mean Corpuscular Hemoglobin 30.2 pg (27-33); Mean Corpuscular Volume 85.4 fl (82-101); Nucleated Red Blood Cells % 0 %; Platelet Count 343 10^3/cmm (157-399); Red Blood Count 4.94 10^6/uL (3.85-5.65); White Blood Count 11.45 10^3/uL (3.29-11.43)
[2025-08-02 11:27] LABS: Alanine Aminotransferase 26 U/L (0-41); Albumin Level 5.1 g/dL (3.5-5.2); Alkaline Phosphatase 152 U/L (40-130); Anion Gap 18.6 (5-19); Aspartate Amino Transferase 19 U/L (0-40); Blood Urea Nitrogen 18 mg/dL (8-23); Calcium 9.9 mg/dL (8.5-10.5); Carbon Dioxide 24 mmol/L (22-29); Chloride 104 mmol/L (98-107); Globulin 2.3 g/dL (1.3-4.6); Glucose 46 mg/dL (65-115); Osmolality Calculated 295 mOsm/kg (285-295); Potassium 3.6 mmol/L (3.5-5.1); Sodium 143 mmol/L (136-145); Total Protein 7.4 g/dL (6.6-8.7)
--- OUTSIDE RECORDS SUMMARY | 2025-08-02 11:27 | XMS_ITS | Clinical Summary ---
Author Organization [facility] Address [address] [place] [address] Phone Care Team Providers Care Statistical Methods Professor Name Role Phone Unavailable Primary Care Provider Unavailabl e Allergies Active Allergy Reactions Criticality Noted Date Comments Codeine Anxiety Low 01/07/2024 Medications insulin detemir U-100 (LEVEMIR) 100 unit/mL pen syringe Inject 50 Units by subcutaneous injection daily at bedtime. Active insulin lispro (HumaLOG,ADMELO G) 100 unit/mL vial Inject 10-15 Units by subcutaneous injection 3 times daily with meals. Sliding scale Active DULoxetine (CYMBALTA) 30 mg Capsule, Delayed Release(E.C.) Take 30 mg by mouth 2 times daily. Active tamsulosin (FLOMAX) 0.4 mg capsule Take 0.8 mg by mouth daily at bedtime. Active losartan (COZAAR) 100 mg tablet Take 100 mg by mouth daily. Active atorvastatin (LIPITOR) 80 mg tablet Take 80 mg by mouth daily at bedtime. Active aspirin (MARJORIE CHEWABLE) 81 mg Tablet, Chewable Take 1 Tablet (81 mg) by mouth daily with breakfast. Stop on 02/14/2024 30 Tablet 4 Active HYDROcodone-brooke taminophen (NORCO) 5-325 mg tabletIndicatio ns:Chest pain, unspecified type Take 1 Tablet by mouth every 8 hours as needed for Pain, Break-Through. Max Daily Amount: 3 Tablets 20 Tablet 4 Active Active Problems Problem Noted Date Diagnosed Date Pneumonia of both lungs due to methicillin susceptible Staphylococcus aureus (MSSA) 01/12/2024 Heart failure with mid-range ejection fraction ( HFmEF) 01/11/2024 Atelectasis 01/09/2024 Cardiac arrest 01/08/2024 NSTEMI (non-ST elevated myocardial infarction) 0 01/07/2024 SVT (supraventricular tachycardia) 01/07/2024 Ventricular dysrhythmia 01/07/2024 History of atrial fibrillation 01/07/2024 Benign hypertension 01/07/2024 DM (diabetes mellitus), type 2 01/07/2024 Hyperlipidemia 01/07/2024 CAD (coronary atherosclerotic disease) HFrEF (heart failure with reduced ejection fract ion) 01/07/2024 VT (ventricular tachycardia) 01/07/2024 Social History Tobacco Use Types Packs/Day Years Used Date Smoking Tobacco: Never Smokeless Tobacco: Never Tobacco Cessation:Counseling Given: Not Answered Alcohol Use Standard Drinks/Week Comments Never 0 (1 standard drink = 0.6 oz pur e alcohol) Feeling Safe Answer Date Recorded Are you in a relationship wi th someone who hurts you emotionally and/or physically? No 01/07/2024 Food Insecurity Answer Date Recorded Social/Environmental Concerns No concerns Transportation Needs Answer Date Record ed Social/Environmental Concerns No concerns Housing Stability Answer Date Recorded Social/Environmental Concerns No concerns Utility Needs Answer Date Recorded Social/Environmental Concerns No concerns Sex and Gender Information Value Date Recorded Sex Assigned at Not on file Legal Sex Male 2:13 PM CDT Gender Identity Not on file Sexual Orientation Not on file Last Filed Vital Signs Vital Sign Reading Time Taken Comments Blood Pressure 158/73 01/11/2024 7:05 AM CDT Pulse 65 01/11/2024 7:05 AM CDT Temperature 36.5 C (97.7 F) 01/11/2024 7:05 AM CDT Respiratory Rate 16 01/11/2024 7:05 AM CDT Oxygen Saturation 93% 01/11/2024 7:05 AM CDT Inhaled Oxygen Concentration - - Weight 81.4 kg (179 lb 8 oz) 01/11/2024 5:00 AM CDT Height 167.6 cm (5' 6 ) 01/07/2024 6:32 PM CDT Body Mass Index 28.97 01/07/2024 6:32 PM CDT Plan of Treatment Health Maintenance Due Date Last Done Comments DIABETES ANNUAL FOOT EXAM 01/05/1966 DIABETES ANNUAL RETINAL EXAM 01/05/1966 DIABETES MICROALBUMIN ANNUAL SCREEN 01/05/1966 LDL CHOLESTEROL ANNUAL 01/05/1966 DTAP/TDAP/TD VACCINES (1 - Tdap) 01/05/1967 PNEUMOCOCCAL VACCINE 50+ YEARS (1 of 2 - PCV) 01/05/19 67 ZOSTER VACCINE (1 of 2) 01/05/1998 RSV VACCINE (60+ or ) (1 - 1-dose 75+ series) 01/05/2023 DIABETES HBA1C Q 6 MONTHS 07/09/2024 01/07/2024 INFLUENZA VACCINE (#1) 2025 Medical Devices Implanted Type Area Casework Manager Device Identifier Shelf Expiration Date Model / Serial / Lot Defib Icd [place] Xt Mri [id number] Dual Chmbr Surescan [id number] - [id number] Implanted:Qty: 1 on 01/10/2024 by Nina Cerda MD at [facility] Defibrillator Left: Chest [employer]- CARD RHYTHM MGMT [id number] 11/13/2024 [id number] / [id number] 0S / Lead Sprint Quattro Secure 62cm [id number] - Csc - [id number] Implanted:Qty: 1 on 01/10/2024 by Nina Cerda MD at [facility] Lead Left: Chest [employer]- CRM - BULK BUY [id number] 12/03/2025 [id number] / [id number] 6V / Lead Capsurefix Novus Mri 52cm Endocardial Pacing 5076-52 - [id number] Implanted:Qty: 1 on 01/10/2024 by Nina Cerda MD at [facility] Lead N/A: Chest [employer]- CRM - BULK BUY [id number] 10/18/2025 5076-52 / [id number] 3V / Procedures Procedure Name Priority Date/Time Associated Diagnosis Comments HEMOGLOBIN A1C Routine 01/07/2024 7:58 PM CDT from Last 3 Months or Most Recently Relevant to Health Maintenance Results * (ABNORMAL) HEMOGLOBIN A1C (01/07/2024 7:58 PM CDT) HEMOGLOBIN A1C 9.3(H) <=5.6 % 01/08/2024 8:13 AM CDT [facility] EST. AVG GLUCOSE, A1C 220 mg/dL 01/08/2024 8:13 AM CDT [facility] Blood Venipuncture / Unknown 01/07/2024 7:58 PM CDT 01/07/2024 8:25 PM CDT Narrative [facility] - 01/08/2024 8:13 AM CDT HGB A1C INTERPRETATION NORMAL: <5.7% PRE-DIABETES: 5.7 - 6.4% DIABETES: 6.5% OR GREATER Mary Mejia NP CHEMISTRY ORDERABLES Final Result Performing Organization Address City/State/[facility] Co de Phone Number [facility] CLIA # [id number] [facility] [id number] from Last 3 Months or Most Recently Relevant to Health Maintenance Insurance [facility] [id number] [facility] Address: [place] [address] RX [employer] RX Member Subscriber Plan / Payer (Ef fective 2021-Present) Name:Chen Carson Relation to Subscriber:Self Name:Chen Carson Payer ID:Not on file Group ID:[id number] Type:RX Medicare Part D Address: [address] Advance Directives For more information, please contact: [phone] * Full Code (Latest Code Status on File) Date Activated Date Inactivated Comments 01/10/2024 12:03 PM 01/11/2024 1:15 PM * Full Code Date Activated Date Inactivated Comments 01/07/2024 7:14 PM 01/10/2024 12:03 PM
[2025-08-02 12:37] VITALS: BP 142/82; PULSE 67; O2SAT 97
[2025-08-02 12:45] VITALS: BP 128/76; PULSE 60; RESP 219; O2SAT 99
[2025-08-02 13:20] VITALS: BP 131/91; PULSE 61; O2SAT 98
--- NOTE | 2025-08-02 13:21 | PC.NURSE ---
Pt was ambulated in hallway to nurses station and back w/o difficulty.
== END 2025-08-02 13:21 | disposition home or self-care (01) ==
PROVIDERS: Emergency Provider Family Medicine; PCP Family Medicine
DX: E11.649 Type 2 diabetes mellitus with hypoglycemia without coma (principal); I10 Essential (primary) hypertension; Z79.4 Long term (current) use of insulin; Z79.01 Long term (current) use of anticoagulants; Z79.02 Long term (current) use of antithrombotics/antiplatelets
CPT/HCPCS: 36416; 80053; 82962; 85025; 93005; 96372; 99284; J1610; J7799

== ENCOUNTER → 2025-09-01 12:31 | Outpatient (BNVA) | payer MEDICARE, SELFPAY | PROVIDERS: PCP Family Medicine; Visit Provider Internal Medicine Cardiovascular Disease | DX: Z45.02 Encounter for adjustment and management of automatic implantable cardiac defibrillator (principal) | CPT/HCPCS: 93296 ==